=== PATIENT | female | born 1975 | race Caucasian/White ===

== ENCOUNTER 2018-03-15 10:15 | Outpatient (CLI) | payer BC ==
[~2018-03-15] VITALS: Ht 157.5 cm; Wt 119.3 kg
[~2018-03-15 10:15] MED LIST: CHOL100048 PO; HYDR-3583 PO; IBUP-1780 PO; METO-370 PO; MTF500T PO; NORG1TAB7 PO; SPIR25TA3 PO; [UNRECOGNIZED DRUG - OTHER] PO
== END 2018-03-15 12:51 | disposition home or self-care (01) ==
LOC: PREOP 10:15
PROVIDERS: ATTEND Obstetrics & Gynecology
DX: Z01.818 Encounter for other preprocedural examination (principal)

== ENCOUNTER 2018-03-18 05:58 | Day surgery (SDC) | payer BC ==
[~2018-03-18] VITALS: Ht 154.9 cm; Wt 136.1 kg
--- OUTSIDE RECORDS SUMMARY | 2018-03-18 06:01 | XMS REPORT ---
Author Author KENRICKFLAKO EDWARDS [facility] Address Unknown Care Team Providers Care Linux Programmer Name Role Phone FLAKO APPIAH Unavailable PROBLEMS Type Condition ICD9-CM Code WFP49-MK Code Onset Dates Condition Status SNOMED Code Problem Rosacea L71.9 Active 567113082 Problem Grief F43.20 Active 43981036 Problem Abnormality of right breast on screening mammogram R92.8 Active 089198739 Problem Insomnia G47.00 Active 664138299 Problem Prediabetes R73.09 Active 8742362 Problem Essential hypertension I10 Active 94039755 Problem Hyperlipidemia E78.5 Active 03059399 Problem Other elevated white blood cell (WBC) count D72.828 Active 535542624 Problem BMI 50.0-59.9, adult Z68.43 Active 238077802 Problem Vitamin D deficiency E55.9 Active 16510723 Problem Reactive depression F32.9 Active 70737834 Problem Dysmenorrhea N94.6 Active 007272876 Problem Vitamin B12 deficiency E53.8 Active 454330549 ALLERGIES Substance Reaction Event Type Date Status Flexeril Unknown Drug Allergy Jul, Active ENCOUNTERS Encounter Location Date Diagnosis [facility] [id number] [place] [address] 14643- 4615 Oct, Visit for TB skin test Z11.1 [facility] [id number] [place] [id number] Jul, Dental examination Z01.20 and Dental caries K02.9 [facility] [address] [address]- [address] 14 May, 2017 Well woman exam Z01.419 ; Screening for breast cancer Z12.39 and BMI 50.0-59.9, adult Z68.43 [facility] [address] 48752- 9748 Apr, [place] [id number] [place] [address] 04296- 6524 Mar, Other elevated white blood cell (WBC) count D72.828 [place] [id number] [place] [address] 89946- 1484 Mar, Other elevated white blood cell (WBC) count D72.828 [place] [address] 53778- 2315 Mar, Essential hypertension I10 [place] [address] 191797- 2568 Feb, Acute non-recurrent frontal sinusitis J01.10 ; Cough R05 ; Essential hypertension I10 ; Dysmenorrhea N94.6 and BMI 50.0-59.9, adult Z68.43 [place] [address] 45744- 2674 Dec, Pain in right leg M79.604 [place] [id number] [place] [address] 18274- 7757 Oct, [place] [id number] [place] [address] 36058- 6802 Sep, Pain in right leg M79.604 [place] [id number] [place] [address] 82566- 9693 August, Essential hypertension I10 [facility] [id number] [place] [address] 00179 -3616 14 Jul, 2016 Impacted cerumen of right ear H61.21 [facility] [place] [id number] [place] [address] 66447 -3364 Jul, Impacted cerumen of right ear H61.21 [place] [id number] [place] [address] 75701- 3695 Jun, Vitamin B12 deficiency E53.8 ; Vitamin D deficiency E55.9 and Reactive depression F32.9 [place] [id number] [place] [address] 97791- 6819 Apr, [place] [id number] [place] [address] 45996- 7787 Apr, Grief F43.20 [place] [id number] [place] [address] 59160- 9389 13 Mar, 2016 Abnormality of right breast on screening mammogram R92.8 and Screening for breast cancer Z12.39 [place] [address] 17734- 3961 07 Mar, 2016 Well woman exam Z01.419 ; Pelvic pain R10.2 ; Abnormality of right breast on screening mammogram R92.8 and Screening for breast cancer Z12.39 [place] [id number] [place] [address] 06992- 4524 Feb, [place] [address] 70006- 4174 Feb, Vitamin B12 deficiency E53.8 [place] [id number] [place] [address] 98796- 3906 Feb, Vitamin B12 deficiency E53.8 [place] [id number] [place] [address] 07118- 2130 Feb, Essential hypertension I10 and Vitamin B12 deficiency E53.8 [place] [id number] [place] [address] 05490- 8881 Feb, Pain in right leg M79.604 ; Pain of left leg M79.605 ; Prediabetes R73.09 ; Hyperlipidemia E78.5 ; Essential hypertension I10 and Cramp of both lower extremities R25.2 [place] [id number] [place] [address] 44758- 3664 Feb, [place] [id number] [place] [address] 26352- 6305 Sep, Dysuria R30.0 and Acute cystitis with hematuria N30.01 [place] [id number] [place] [address] 29345- 7746 26 Jul, 2015 Essential hypertension I10 and Prediabetes R73.09 [place] [id number] [place] [address] 46416- 5884 12 Apr, 2015 Acute upper respiratory infection, unspecified J06.9 and Other viral agents as the cause of diseases classified elsewhere B97.89 [place] [id number] [place] [address] 01759- 1486 Apr, [place] [id number] [place] [address] 36783- 3583 Mar, Essential hypertension, benign 401.1 and Hyperlipidemia 272.4 [place] [id number] [place] [address] 01471- 9126 Mar, [place] [id number] [place] [address] 28634- 9500 Feb, [place] [id number] [place] [address] 83322- 2836 Feb, [place] [id number] [place] [address] 11231- 2524 Feb, History of abnormal mammogram Z87.898 [place] [id number] [place] [address] 49615- 8425 Feb, Screening breast examination Z12.39 and History of abnormal mammogram Z87.898 [place] [id number] [place] [address] 31751- 4880 Jan, [place] [id number] [place] [address] 41363- 3537 Jan, [place] [id number] [place] [address] 72782- 5634 Jan, Encounter for immunization Z23 [place] [address] 05408- 0406 Jan, [facility] [address] [address]- 0977 Nov, Essential hypertension, benign 401.1 ; Hyperlipidemia 272.4 and Severe menstrual cramps 625.3 [facility] [id number] [address]- 4276 Sep, [facility] [id number] [place] [address] 34031- 6992 Sep, Intractable left heel pain 729.5 [facility] [id number] [place] [address] 23164- 8245 Sep, Unspecified breast screening V76.10 [facility] [id number] [place] [address] 93417- 8596 August, Conjunctivitis, left eye 372.30 [facility] [id number] [place] [address] 10379- 8733 Jul, [facility] [id number] [place] [address] 87920- 2240 Jul, [facility] [id number] [place] [address] 92989- 3436 May, [facility] [id number] [address]- 0906 May, [facility] [id number] [place] [address] 90240- 8306 Apr, [facility] [address] [place] [address] 67305- 4116 Apr, [facility] [id number] [place] [address] 96296- 1496 Apr, [facility] [address] [address]- 4236 Apr, [facility] [address] [place] [address] 12759- 4529 Apr, [facility] [place] [facility] [address] [id number] [place] [address]- 7633 Apr, [facility] [place] [facility] [address] [id number] [place] [address]- 9806 Apr, [facility] [place] [facility] [address] [id number] [place] [address]- 2610 Apr, [facility] [place] [facility] [address] [id number] [place] [address]- 8720 Apr, [facility] [place] [facility] [address] [id number] [place] [address]- 7704 Feb, [facility] [place] [facility] [address] [id number] [place] [address]- 2137 Feb, [facility] [place] [facility] [address] [id number] [place] [address]- 3871 Feb, [facility] [place] [facility] [address] [id number] [place] [address]- 5337 Feb, [facility] [place] [facility] [address] [id number] [place] [address]- 6770 Feb, [facility] [place] [facility] [address] [id number] [place] [address]- 1867 Feb, [facility] [place] [facility] [address] [id number] [place] [address]- 2526 Jan, [facility] [place] [facility] [address] [id number] [address]- 9875 Jan, [facility] [place] [facility] [address] [id number] [place] [address]- 4156 Jan, [facility] [place] [facility] [address] [id number] [place] [address]- 6976 Jan, [facility] [place] [facility] [address] [id number] [place] [address]- 9626 Jan, [facility] [place] [facility] [address] [id number] [place] [address]- 3718 14 Jan, 2014 [facility] [place] [facility] [address] [id number] [place] [address]- 3962 13 Jan, 2014 [facility] [place] [facility] [address] [id number] [place] [address]- 3041 13 Jan, 2014 [facility] [place] [facility] [address] [id number] [place] [address]- 4592 10 Jan, 2014 [facility] [place] [facility] [address] [id number] [place] [address]- 1001 09 Jan, 2014 [facility] [place] [facility] [address] [id number] [place] [address]- 2660 07 Jan, 2014 [facility] [place] [facility] [address] [id number] [place] [address]- 3528 07 Jan, 2014 [facility] [place] [facility] [address] [id number] [place] [address]- 3063 25 Dec, 2013 [facility] [place] [facility] [address] [id number] [place] [address]- 7517 25 Dec, 2013 [facility] [place] [facility] [address] [id number] [place] [address]- 9047 19 Dec, 2013 [facility] [place] [facility] [address] [id number] [place] [address]- 6040 19 Dec, 2013 [facility] [place] [facility] [address] [id number] [place] [address]- 6128 17 Dec, 2013 [facility] [place] [facility] [address] [id number] [place] [address]- 2541 17 Dec, 2013 [facility] [place] [facility] [address] [id number] [place] [address]- 7389 06 Dec, 2013 [facility] [place] [facility] [address] [id number] [place] [address]- 0440 06 Dec, 2013 [facility] [place] [facility] [address] [id number] [place] [address]- 4884 Nov, [facility] [place] [facility] [address] [id number] [place] [address]- 0017 Nov, [facility] [place] [facility] [address] [id number] [place] [address]- 9945 Oct, [facility] [place] [facility] [address] [id number] [place] [address]- 7102 Oct, [facility] [place] [facility] [address] [id number] [place] [address]- 8073 Jul, [facility] [place] [facility] [address] [id number] [place] [address]- 2782 Jul, [facility] [place] [facility] [address] [id number] [place] [address]- 9778 Jun, [facility] [place] [facility] [address] [id number] [place] [address]- 3266 Jun, [facility] [place] [facility] [address] [id number] [place] [address]- 5545 Jun, [facility] [place] [facility] [address] [id number] [place] [address]- 0389 Jun, [facility] [place] [facility] [address] [id number] [place] [address]- 0779 May, [facility] [place] [facility] [address] [id number] [place] [address]- 6046 May, [facility] [place] [facility] [address] [id number] [place] [address]- 7222 May, [facility] [place] [facility] [address] [id number] [place] 6304 May, [facility] [place] [facility] [address] [id number] [place] 5847 Apr, [facility] [place] [facility] [address] [id number] [place] 1695 Apr, [facility] [place] [facility] [address] [id number] [address]- 2586 Apr, [facility] [address] [id number] [place] [address]- 3091 Apr, [facility] [place] [facility] [address] [id number] [place] [address]- 2494 Nov, [facility] [place] [facility] [address] [facility] [id number] [place] [address]- 4381 Oct, [facility] [place] [facility] [address] [id number] [place] [address]- 5519 Sep, [facility] [place] [facility] [address] [id number] [place] [address]- 6283 August, [facility] [place] [facility] [address] [id number] [place] [address]- 3122 Jul, [facility] [place] [facility] [address] [place] [address]- 9133 Jun, [facility] [place] [facility] [address] [id number] [place] [address]- 9254 Jun, [facility] [place] [facility] [address] [facility] [id number] [place] [address]- 0417 May, [facility] [place] [facility] [address] [facility] [id number] [place] [address]- 3949 Mar, [facility] [place] [facility] [address] [id number] [place] [address]- 5453 Feb, [facility] [place] [facility] [address] [id number] [place] [address]- 3872 Feb, [facility] [place] [facility] [address] [id number] [place] [address]- 0993 Jan, [facility] [place] [facility] [address] [facility] [id number] [place] [address]- 1595 Jan, [facility] [place] [facility] [address] [facility] [id number] [place] [address]- 4677 15 Dec, 2011 [facility] [place] [facility] [address] [id number] [place] [address]- 2546 Nov, [facility] [address] [id number] [place] [address] 2546 Oct, [facility] [place] [facility] [address] [id number] [place] [address]- 2546 August, [facility] [place] [facility] [address] [id number] [place] [address]- 2546 August, [facility] [place] [facility] [address] [id number] [place] [address]- 2546 August, [facility] [place] [facility] [address] [id number] [place] [address]- 2546 May, [facility] [place] [facility] [address] [id number] [place] [address]- 2546 Apr, [facility] [place] [facility] [address] [id number] [place] [address]- 2546 Nov, [facility] [address] [id number] [place] [address]- 9472 August, [facility] [place] [facility] [address] [id number] [place] [address]- 1856 August, [facility] [place] [facility] [address] [id number] [place] [address]- 2546 Dec, [facility] [place] [facility] [address] [id number] [place] [address]- 2546 August, [facility] [place] [facility] [address] [id number] [place] [address]- 2546 Mar, [facility] [place] [facility] [address] [id number] [place] [address]- 2546 Feb, [facility] [place] [facility] [address] [id number] [place] [address]- 2546 Jan, [facility] [place] [facility] [address] [id number] [place] [address]- 5208 Sep, IMMUNIZATIONS No Known Immunizations SOCIAL HISTORY Never Assessed REASON FOR VISIT CLARENCE PLAN OF CARE Activity Details Follow Up prn Reason:SHAHNAZ with HYG VITAL SIGNS Blood pressure systolic 132 mmHg 2017-07-21 Blood pressure diastolic 82 mmHg 2017-07-21 MEDICATIONS Medication Instructions Dosage Frequency Start Date End Date Duration Status Vitamin D 1000 UNIT Orally Once a day 1 tablet 24h Active Ibuprofen 800 MG TAKE ONE TABLET BY MOUTH THREE TIMES DAILY NEEDED 30 Active Metoprolol Tartrate Active Lopressor 50 mg Orally Twice a day 1 tablet with food 12h 90 days Not-Taking Ortho-Cyclen (28) 0.25-35 MG-MCG Orally Once a day 1 tablet 24h 28 Active RESULTS No Results PROCEDURES Procedure Date Ordered Result Body Site LTD ORAL EVALUATION - PROBLEM FOCUS July 21, 2017 INTRAORL-PERIAPICAL 1 FILM [id number] July 21, 2017 EXTRAC ERUPTED TOOTH/EXPOSED ROOT July 21, 2017 BITEWING - SINGLE FILM July 21, 2017 INSTRUCTIONS MEDICATIONS ADMINISTERED No Known Medications MEDICAL (GENERAL) HISTORY Type Description Date Medical History Essential hypertension, benign Medical History Post cholecystectomy Medical History Obesity Surgical History section x 2 Surgical History breast biopsy Surgical History cholecystectomy Hospitalization History Section x 2
--- OUTSIDE RECORDS SUMMARY | 2018-03-18 06:01 | XMS REPORT ---
Author Author LUIS CARLOS MCCARTNEY [facility] Address [address] [place] [address] Care Team Providers Care Corporate Legal Secretary Name Role Phone LUIS CARLOS MCCARTNEY Unavailable PROBLEMS Type Condition ICD9-CM Code KCP97-JT Code Onset Dates Condition Status SNOMED Code Problem Rosacea L71.9 Active 357171884 Problem Grief F43.20 Active 62513272 Problem Abnormality of right breast on screening mammogram R92.8 Active 606342578 Problem Insomnia G47.00 Active 615229006 Problem Prediabetes R73.09 Active 1459118 Problem Essential hypertension I10 Active 19610937 Problem Hyperlipidemia E78.5 Active 23811293 Problem Other elevated white blood cell (WBC) count D72.828 Active 634096922 Problem BMI 50.0-59.9, adult Z68.43 Active 868468634 Problem Vitamin D deficiency E55.9 Active 46439555 Problem Reactive depression F32.9 Active 19333604 Problem Dysmenorrhea N94.6 Active 461444605 Problem Vitamin B12 deficiency E53.8 Active 545685840 ALLERGIES No Information ENCOUNTERS Encounter Location Date Diagnosis [facility] [id number] [place] [address] 25404- 7767 Jan, [facility] [id number] [place] [address] 85101- 0430 Oct, Visit for TB skin test Z11.1 [facility] [id number] [place] [address] [id number] Jul, Dental examination Z01.20 and Dental caries K02.9 [facility] [id number] [place] [address] 13030- 1411 14 May, 2017 Well woman exam Z01.419 ; Screening for breast cancer Z12.39 and BMI 50.0-59.9, adult Z68.43 [facility] [id number] [place] [address] 52024- 4648 Apr, [facility] [id number] [place] [address] 33609- 5541 Mar, Other elevated white blood cell (WBC) count D72.828 [facility] [address] 0[address]99- 1676 Mar, Other elevated white blood cell (WBC) count D72.828 [facility] [id number] [place] [address] 38983- 3608 Mar, Essential hypertension I10 [facility] [address] 28608- 2009 Feb, Acute non-recurrent frontal sinusitis J01.10 ; Cough R05 ; Essential hypertension I10 ; Dysmenorrhea N94.6 and BMI 50.0-59.9, adult Z68.43 [facility] [id number] [place] [address] 51882- 2636 Dec, Pain in right leg M79.604 [facility] [id number] [place] [address] 26874- 9211 Oct, [facility] [id number] [place] [address] 14752- 3089 Sep, Pain in right leg M79.604 [facility] [id number] [place] [address] 79470- 2207 August, Essential hypertension I10 [facility] [id number] [place] [address] 01746 -1530 14 Jul, 2016 Impacted cerumen of right ear H61.21 [facility] [id number] [place] [address] 13722 -8218 11 Jul, 2016 Impacted cerumen of right ear H61.21 [facility] [address] 78508- 3674 Jun, Vitamin B12 deficiency E53.8 ; Vitamin D deficiency E55.9 and Reactive depression F32.9 [facility] [id number] [place] [address] 58993- 0255 Apr, [facility] [id number] [place] [address] 28552- 8595 Apr, Grief F43.20 [facility] [id number] [place] [address] 32446- 7042 13 Mar, 2016 Abnormality of right breast on screening mammogram R92.8 and Screening for breast cancer Z12.39 [facility] [id number] [place] [address] 46522- 8199 07 Mar, 2016 Well woman exam Z01.419 ; Pelvic pain R10.2 ; Abnormality of right breast on screening mammogram R92.8 and Screening for breast cancer Z12.39 [facility] [id number] [place] [address] 12596- 2789 Feb, [facility] [id number] [place] [address] 49220- 7780 Feb, Vitamin B12 deficiency E53.8 [facility] [id number] [place] [address] 54556- 3010 Feb, Vitamin B12 deficiency E53.8 [facility] [id number] [place] [address] 51192- 7627 Feb, Essential hypertension I10 and Vitamin B12 deficiency E53.8 [facility] [address] [place] [address] 33893- 2042 Feb, Pain in right leg M79.604 ; Pain of left leg M79.605 ; Prediabetes R73.09 ; Hyperlipidemia E78.5 ; Essential hypertension I10 and Cramp of both lower extremities R25.2 [facility] [id number] [place] [address] 24199- 8678 Feb, [facility] [id number] [place] [address] 22978- 4297 Sep, Dysuria R30.0 and Acute cystitis with hematuria N30.01 [facility] [id number] [place] [address] 03933- 4765 Jul, Essential hypertension I10 and Prediabetes R73.09 [facility] [id number] [place] [address] 69797- 7075 Apr, Acute upper respiratory infection, unspecified J06.9 and Other viral agents as the cause of diseases classified elsewhere B97.89 [facility] [id number] [place] [address] 15594- 0866 Apr, [facility] [id number] [place] [address] 57282- 1610 Mar, Essential hypertension, benign 401.1 and Hyperlipidemia 272.4 [facility] [id number] [place] [address] 79148- 7999 Mar, [facility] [id number] [place] [address] 11074- 6737 Feb, [facility] [id number] [place] [address] 43771- 9906 Feb, [facility] [id number] [place] [address] 32246- 2980 Feb, History of abnormal mammogram Z87.898 [facility] [id number] [place] [address] 96148- 4727 Feb, Screening breast examination Z12.39 and History of abnormal mammogram Z87.898 [facility] [id number] [place] [address] 26229- 2768 Jan, [facility] [id number] [place] [address] 78510- 3220 Jan, [facility] [id number] [place] [address] 21520- 2234 Jan, Encounter for immunization Z23 [facility] [id number] [place] [address] 93252- 5617 Jan, [facility] [id number] [place] [address] 69461- 8696 Nov, Essential hypertension, benign 401.1 ; Hyperlipidemia 272.4 and Severe menstrual cramps 625.3 [facility] [address] 01534- 0456 Sep, [facility] [id number] [place] [address] 52662- 3506 Sep, Intractable left heel pain 729.5 [facility] [id number] [place] [address] 88599- 9602 Sep, Unspecified breast screening V76.10 [facility] [address] 45287- 1392 August, Conjunctivitis, left eye 372.30 [facility] [id number] [place] [address] 79159- 1716 Jul, [facility] [id number] [place] [address] 72397- 9820 Jul, [facility] [id number] [place] [address] 97922- 2040 May, [facility] [id number] [place] [address] 76072- 0301 May, [facility] [id number] [place] [address] 88066- 7856 Apr, [facility] [id number] [place] [address] 41460- 9698 Apr, [facility] [id number] [place] [address] 86651- 0616 Apr, [facility] [id number] [place] [address] 79098- 9246 Apr, [facility] [place] [facility] [address] [id number] [place] [address]- 6791 Apr, [facility] [place] [facility] [address] [id number] [place] [address]- 9429 Apr, [facility] [place] [facility] [address] [id number] [place] [address]- 4713 Apr, [facility] [place] [facility] [address] [id number] [place] [address]- 4284 Apr, [facility] [place] [facility] [address] [id number] [place] [address]- 0902 Apr, [facility] [place] [facility] [address] [id number] [place] [address]- 7683 Feb, [facility] [place] [facility] [address] [id number] [place] [address]- 4768 Feb, [facility] [place] [facility] [address] [id number] [place] [address]- 5683 Feb, [facility] [place] [facility] [address] [id number] [place] [address]- 3853 Feb, [facility] [place] [facility] [address] [id number], [place] [address]- 1296 Feb, [facility] [place] [facility] [address] [id number] [place] [address]- 1310 Feb, [facility] [place] [facility] [address] [id number], [place] [address]- 7845 Jan, [facility] [place] [facility] [address] [id number] [place] [address]- 2156 Jan, [facility] [place] [facility] [address] [id number] [place] [address]- 5679 Jan, [facility] [place] [facility] [address] [id number] [place] [address]- 9810 Jan, [facility] [place] [facility] [address] [id number] [place] [address]- 4698 14 Jan, 2013 [facility] [place] [facility] [address] [id number] [place] [address]- 0343 14 Jan, 2014 [facility] [place] [facility] [address] [id number] [place] [address]- 6771 13 Jan, 2014 [facility] [place] [facility] [address] [id number] [place] [address]- 7297 13 Jan, 2013 [facility] [place] [facility] [address] [id number] [place] [address]- 6014 10 Jan, 2013 [facility] [place] [facility] [address] [id number] [place] [address]- 1585 09 Jan, 2014 [facility] [place] [facility] [address] [id number] [place] [address]- 5758 07 Jan, 2014 [facility] [place] [facility] [address] [id number] [place] [address]- 0389 07 Jan, 2013 [facility] [place] [facility] [address] [id number] [place] [address]- 8348 25 Sep, 2013 [facility] [place] [facility] [address] [id number] [place] [address]- 6647 25 Sep, 2013 [facility] [place] [facility] [address] [facility] [id number] [place] [address]- 5664 19 Sep, 2013 [facility] [place] [facility] [address] [id number] [place] [address]- 2356 19 Sep, 2013 [facility] [place] [facility] [address] [id number], [place] [address]- 2542 17 Sep, 2013 [facility] [place] [facility] [address] [id number] [place] [address]- 9309 17 Sep, 2013 [facility] [place] [facility] [address] [id number] [place] [address]- 2269 06 Sep, 2013 [facility] [place] [facility] [address] [id number] [place] [address]- 2004 06 Sep, 2013 [facility] [place] [facility] [address] [id number] [place] [address]- 5062 Nov, [facility] [place] [facility] [address] [id number] [place] [address]- 8130 Nov, [facility] [place] [facility] [address] [id number] [place] [address]- 5643 Oct, [facility] [place] [facility] [address] [id number] [place] [address]- 7112 Oct, [facility] [place] [facility] [address] [id number] [place] [address]- 6573 Jul, [facility] [place] [facility] [address] [id number] [place] [address]- 8122 Jul, [facility] [place] [facility] [address] [id number] [place] [address]- 4467 Jun, [facility] [place] [facility] [address] [id number] [place] [address]- 2085 Jun, [facility] [place] [facility] [address] [id number] [place] [address]- 8175 Jun, [facility] [place] [facility] [address] [id number] [place] [address]- 5390 Jun, [facility] [place] [facility] [address] [id number] [place] [address]- 4622 May, [facility] [place] [facility] [address] [id number] [place] [address]- 8877 May, [facility] [place] [facility] [address] [id number] [place] [address]- 1320 May, [facility] [place] [facility] [address] [id number] [place] [address]- 6803 May, [facility] [place] [facility] [address] [id number] [place] 1292 Apr, [facility] [place] [facility] [address] [id number], [place] [address]- 4532 Apr, [facility] [address] [id number] [place] [address]- 5629 Apr, [facility] [place] [facility] [address] [id number] [place] [address]- 9594 Apr, [facility] [place] [facility] [address] [facility] [id number] [place] [address]- 7229 Nov, [facility] [place] [facility] [address] [id number] [place] [address]- 5081 Oct, [facility] [place] [facility] [address] [id number] [place] [address]- 0399 Sep, [facility] [place] [facility] [address] [id number] [place] [address]- 4583 August, [facility] [place] [facility] [address] [facility] [id number] [place] [address]- 2451 Jul, [facility] [place] [facility] [address] [id number] [place] [address]- 0147 Jun, [facility] [place] [facility] [address] [facility] [id number] [place] [address]- 8426 Jun, [facility] [place] [facility] [address] [facility] [id number] [place] [address]- 0840 May, [facility] [place] [facility] [address] [facility] [id number] [place] [address]- 9859 Mar, [facility] [place] [facility] [address] [id number] [place] [address]- 6374 Feb, [facility] [place] [facility] [address] [id number] [place] 2855 Feb, [facility] [place] [facility] [address] [facility] [id number] [place] 5403 Jan, [facility] [place] [facility] [address] [facility] [id number] [place] 5010 Jan, [facility] [place] [facility] [address] [id number] [place] [address]- 2546 Dec, [facility] [address] [id number] [place] [address] 2546 Nov, [facility] [place] [facility] [address] [id number] [place] [address]- 2546 Oct, [facility] [place] [facility] [address] [id number] [place] [address] 2546 August, [facility] [place] [facility] [address] [id number] [place] [address]- 2546 August, [facility] [place] [facility] [address] [id number] [place] [address]- 2546 August, [facility] [place] [facility] [address] [id number] [place] [address]- 2546 May, [facility] [place] [facility] [address] [id number] [place] [address]- 2316 Apr, [facility] [address] [id number] [place] [address]- 6824 Nov, [facility] [address] [id number] [place] [address]- 2566 August, [facility] [place] [facility] [address] [id number] [place] [address]- 2546 August, [facility] [place] [facility] [address] [id number] [place] [address]- 2546 Dec, [facility] [place] [facility] [address] [id number] [place] [address]- 2546 August, [facility] [place] [facility] [address] [id number] [place] [address]- 2546 Mar, [facility] [place] [facility] [address] [id number] [place] [address]- 2546 Feb, [facility] [place] [facility] [address] [id number] [place] [address]- 1694 Jan, [facility] [address] [facility] [id number] [place] [address]- 7851 Sep, IMMUNIZATIONS No Known Immunizations SOCIAL HISTORY Never Assessed REASON FOR VISIT TB skin test PLAN OF CARE Activity Details Follow Up 48-72 hours Reason: VITAL SIGNS MEDICATIONS Unknown Medications RESULTS No Results PROCEDURES Procedure Date Ordered Result Body Site TB INTRADERMAL 2017-10-12 N/A TB INTRADERMAL TEST October 12, 2017 INSTRUCTIONS MEDICATIONS ADMINISTERED No Known Medications MEDICAL (GENERAL) HISTORY Type Description Date Medical History Essential hypertension, benign Medical History Post cholecystectomy Medical History Obesity Surgical History section x 2 Surgical History breast biopsy Surgical History cholecystectomy Hospitalization History Section x 2
--- OUTSIDE RECORDS SUMMARY | 2018-03-18 06:01 | XMS REPORT ---
Author Author BIB LUIS CARLOS [facility] Address [address] [place] [address] Care Team Providers Care Acid Blower Name Role Phone LUIS CARLOS MCCARTNEY Unavailable PROBLEMS Type Condition ICD9-CM Code JDD06-SN Code Onset Dates Condition Status SNOMED Code Problem Abnormality of right breast on screening mammogram R92.8 Active 860781353 Problem Vitamin D deficiency E55.9 Active 49611674 Problem Grief F43.20 Active 58908125 Problem Menorrhagia with irregular cycle N92.1 Active 885312623 Problem Other elevated white blood cell (WBC) count D72.828 Active 757555298 Problem Reactive depression F32.9 Active 03066162 Problem Vitamin B12 deficiency E53.8 Active 318444534 Problem BMI 50.0-59.9, adult Z68.43 Active 146706945 Problem Dysmenorrhea N94.6 Active 191263250 Problem Prediabetes R73.09 Active 6030805 Problem Essential hypertension I10 Active 59661129 Problem Hyperlipidemia E78.5 Active 83232788 Problem Insomnia G47.00 Active 505548403 Problem Rosacea L71.9 Active [id number] ALLERGIES No Information ENCOUNTERS Encounter Location Date Diagnosis [facility] [place] [facility] [id number] [place] [address] 63636- 7734 05 Jan, 2018 Menorrhagia with irregular cycle N92.1 ; Essential hypertension I10 ; Hyperlipidemia E78.5 ; Prediabetes R73.09 and BMI 50.0-59.9, adult Z68.43 [facility] [place] [facility] [address] [place] [address] 26456- 5637 Dec, [facility] [place] [facility] [address] [place] [address] 71669- 6752 Oct, Visit for TB skin test Z11.1 [facility] [id number] [id number] 17 Jul, 2017 Dental examination Z01.20 and Dental caries K02.9 [place] [id number] [place] [address] 38352- 2594 14 May, 2017 Well woman exam Z01.419 ; Screening for breast cancer Z12.39 and BMI 50.0-59.9, adult Z68.43 [place] [id number] [place] [address] 27243- 9318 Apr, [place] [id number] [place] [address] 894882- 8459 Mar, Other elevated white blood cell (WBC) count D72.828 [place] [id number] [place] [address] 23414- 3464 Mar, Other elevated white blood cell (WBC) count D72.828 [place] [id number] [place] [address] 02088- 0424 Mar, Essential hypertension I10 [place] [id number] [place] [address] 74814- 8854 Feb, Acute non-recurrent frontal sinusitis J01.10 ; Cough R05 ; Essential hypertension I10 ; Dysmenorrhea N94.6 and BMI 50.0-59.9, adult Z68.43 [place] [id number] [place] [address] 20459- 6833 Dec, Pain in right leg M79.604 [place] [id number] [place] [address] 72564- 5988 Oct, [place] [id number] [place] [address] 11158- 6351 Sep, Pain in right leg M79.604 [place] [id number] [place] [address] 554210- 1095 August, Essential hypertension I10 [facility] [id number] [place] [address] 55783 -0800 14 Jul, 2016 Impacted cerumen of right ear H61.21 [facility] [id number] [place] [address] 17228 -3341 11 Jul, 2016 Impacted cerumen of right ear H61.21 [facility] [place] [facility] [id number] [place] [address] 69322- 8871 Jun, Vitamin B12 deficiency E53.8 ; Vitamin D deficiency E55.9 and Reactive depression F32.9 [place] [id number] [place] [address] 22712- 0868 Apr, [place] [id number] [place] [address] 01312- 2024 Apr, Grief F43.20 [place] [id number] [place] [address] 22614- 1333 13 Mar, 2016 Abnormality of right breast on screening mammogram R92.8 and Screening for breast cancer Z12.39 [place] [id number] [place] [address] 32412- 3624 07 Mar, 2016 Well woman exam Z01.419 ; Pelvic pain R10.2 ; Abnormality of right breast on screening mammogram R92.8 and Screening for breast cancer Z12.39 [place] [id number] [place] [address] 19899- 6133 Feb, [place] [id number] [place] [address] 74397- 8242 Feb, Vitamin B12 deficiency E53.8 [place] [id number] [place] [address] 55848- 9415 Feb, Vitamin B12 deficiency E53.8 [place] [id number] [place] [address] 37787- 5859 Feb, Essential hypertension I10 and Vitamin B12 deficiency E53.8 [place] [id number] [place] [address] 26734- 3146 16 Feb, 2016 Pain in right leg M79.604 ; Pain of left leg M79.605 ; Prediabetes R73.09 ; Hyperlipidemia E78.5 ; Essential hypertension I10 and Cramp of both lower extremities R25.2 [place] [id number] [place] [address] 20781- 0811 08 Feb, 2016 [place] [id number] [place] [address] 98738- 3633 Sep, Dysuria R30.0 and Acute cystitis with hematuria N30.01 [place] [id number] [place] [address] 56005- 2807 Jul, Essential hypertension I10 and Prediabetes R73.09 [place] [id number] [place] [address] 02909- 7699 Apr, Acute upper respiratory infection, unspecified J06.9 and Other viral agents as the cause of diseases classified elsewhere B97.89 [place] [id number] [place] [address] 27082- 2255 Apr, [place] [id number] [place] [address] 18130- 0039 Mar, Essential hypertension, benign 401.1 and Hyperlipidemia 272.4 [place] [id number] [place] [address] 59303- 8187 Mar, [place] [id number] [place] [address] 84045- 5723 Feb, [place] [id number] [place] [address] 77476- 3794 Feb, [place] [id number] [place] [address] 40106- 0145 Feb, History of abnormal mammogram Z87.898 [place] [id number] [place] [address] 01788- 9393 04 Feb, 2015 Screening breast examination Z12.39 and History of abnormal mammogram Z87.898 [facility] [place] [facility] [id number] [place] [address] 53890- 4098 Jan, [facility] [place] [facility] [id number] [place] [address] 95627- 5738 Jan, [facility] [place] [facility] [id number] [place] [address] 92663- 4513 Jan, Encounter for immunization Z23 [facility] [place] [facility] [address] 33512- 6385 Jan, [facility] [place] [facility] [id number] [place] [address] 36813- 9016 Nov, Essential hypertension, benign 401.1 ; Hyperlipidemia 272.4 and Severe menstrual cramps 625.3 [place] [id number] [place] [address] 31652- 0963 Sep, [facility] [place] [facility] [address] 37518- 2845 Sep, Intractable left heel pain 729.5 [facility] [place] [facility] [id number] [place] [address] 65800- 1170 Sep, Unspecified breast screening V76.10 [facility] [place] [facility] [id number] [place] [address] 02036- 4167 August, Conjunctivitis, left eye 372.30 [facility] [place] [facility] [id number] [place] [address] 83503- 9434 Jul, [facility] [place] [facility] [id number] [place] [address] 01309- 2120 Jul, [facility] [place] [facility] [id number] [place] [address] 20678- 7373 May, [facility] [place] [facility] [id number] [place] [address] 69451- 8251 May, [facility] [place] [facility] [id number] [place] [address] 65337- 9492 Apr, [facility] [place] [facility] [address] [id number] [place] [address]- 2889 Apr, [facility] [place] [facility] [address] [id number] [place] [address]- 7418 Apr, [facility] [place] [facility] [address] [id number] [place] [address]- 1067 Apr, [facility] [place] [facility] [address] [id number] [place] [address]- 8376 Apr, [facility] [place] [facility] [address] [id number] [place] [address]- 2007 Apr, [facility] [place] [facility] [address] [id number] [place] [address]- 8630 Apr, [facility] [place] [facility] [address] [id number] [place] [address]- 8279 Apr, [facility] [place] [facility] [address] [id number] [place] [address]- 1119 Apr, [facility] [place] [facility] [address] [id number] [place] [address]- 1617 Feb, [facility] [place] [facility] [address] [id number] [place] [address]- 5720 Feb, [facility] [place] [facility] [address] [id number] [place] [address]- 7060 Feb, [facility] [place] [facility] [address] [id number], [place] [address]- 9457 Feb, [facility] [place] [facility] [address] [id number] [place] [address]- 9100 Feb, [facility] [place] [facility] [address] [id number] [place] [address]- 1871 Feb, [facility] [place] [facility] [address] [id number] [place] [address]- 5061 Jan, [facility] [place] [facility] [address] [id number], [place] [address]- 0442 Jan, [facility] [place] [facility] [address] [id number] [place] [address]- 6080 Jan, [facility] [place] [facility] [address] [id number] [place] [address]- 5660 Jan, [facility] [place] [facility] [address] [id number] [place] [address]- 5442 14 Jan, 2014 [facility] [place] [facility] [address] [id number] [place] [address]- 8138 14 Jan, 2014 [facility] [place] [facility] [address] [id number] [place] [address]- 5655 Jan, [facility] [place] [facility] [address] [id number] [place] [address]- 1235 13 Jan, 2014 [facility] [place] [facility] [address] [id number] [place] [address]- 8534 10 Jan, 2014 [facility] [place] [facility] [address] [id number] [place] [address]- 1924 09 Jan, 2014 [facility] [place] [facility] [address] [id number] [place] [address]- 1430 07 Jan, 2014 [facility] [place] [facility] [address] [id number] [place] [address]- 7013 07 Jan, 2014 [facility] [place] [facility] [address] [id number], [place] [address]- 5523 25 Dec, 2013 [facility] [place] [facility] [address] [id number], [place] [address]- 3934 25 Dec, 2013 [facility] [place] [facility] [address] [id number] [place] [address]- 2149 19 Dec, 2013 [facility] [place] [facility] [address] [id number] [place] [address]- 9761 19 Dec, 2013 [facility] [place] [facility] [address] [id number] [place] [address]- 0021 17 Sep, 2013 [facility] [place] [facility] [address] [id number] [place] [address]- 9014 17 Dec, 2013 [facility] [place] [facility] [address] [id number] [place] [address]- 1164 Dec, [facility] [place] [facility] [address] [id number] [place] [address]- 4916 Dec, [facility] [place] [facility] [address] [id number] [place] [address]- 8385 Nov, [facility] [place] [facility] [address] [id number] [place] [address]- 9659 Nov, [facility] [place] [facility] [address] [id number] [place] [address]- 2435 Oct, [facility] [place] [facility] [address] [id number] [place] [address]- 6612 Oct, [facility] [place] [facility] [address] [id number] [place] [address]- 0959 Jul, [facility] [place] [facility] [address] [id number] [place] [address]- 8459 Jul, [facility] [place] [facility] [address] [id number] [place] [address]- 9486 Jun, [facility] [place] [facility] [address] [id number] [place] [address]- 0377 Jun, [facility] [place] [facility] [address] [id number] [place] [address]- 2833 Jun, [facility] [place] [facility] [address] [id number] [place] [address]- 7632 Jun, [facility] [place] [facility] [address] [id number] [place] [address]- 8667 May, [facility] [place] [facility] [address] [id number] [place] [address]- 5226 May, [facility] [place] [facility] [address] [id number] [place] [address]- 8091 May, [facility] [place] [facility] [address] [id number] [place] [address]- 9628 May, [facility] [place] [facility] [address] [id number] [place] [address]- 7583 Apr, [facility] [place] [facility] [address] [facility] [id number] [place] [address]- 9421 Apr, [facility] [place] [facility] [address] [id number] [place] [address]- 0668 Apr, [facility] [place] [facility] [address] [id number] [place] [address]- 5118 Apr, [facility] [place] [facility] [address] [facility] [id number] [place] [address]- 4989 Nov, [facility] [place] [facility] [address] [id number] [place] [address]- 8870 Oct, [facility] [place] [facility] [address] [id number] [place] [address]- 3534 Sep, [facility] [place] [facility] [address] [id number] [place] [address]- 6680 August, [facility] [place] [facility] [address] [facility] [id number] [place] [address]- 0014 Jul, [facility] [place] [facility] [address] [id number] [place] [address]- 8931 Jun, [facility] [place] [facility] [address] [id number] [place] [address]- 7029 Jun, [facility] [place] [facility] [address] [id number] [place] [address]- 0378 May, [facility] [place] [facility] [address] [id number] [place] [address]- 8516 Mar, [facility] [place] [facility] [address] [id number] [place] [address]- 3141 Feb, [facility] [place] [facility] [address] [id number] [place] [address] 2549 Feb, [facility] [address] [id number] [place] [address]- 2143 Jan, [facility] [address] [id number] [place] [address] 2546 Jan, [facility] [address] [id number] [place] [address]- 6886 Dec, [facility] [address] [id number] [place] [address] 2546 Nov, [facility] [address] [id number] [place] [address]- 1956 Oct, [facility] [address] [id number] [place] [address]- 2056 August, [facility] [address] [id number] [place] [address]- 6538 August, [facility] [address] [id number] [place] [address]- 7797 August, [facility] [address] [id number] [place] [address]- 9358 May, [facility] [address] [id number] [place] [address]- 2006 Apr, [facility] [address] [id number] [place] [address] 2547 Nov, [facility] [address] [id number] [place] [address] 2546 August, [facility] [address] [id number] [place] [address] 2546 August, [facility] [address] [id number] [place] [address]- 2546 Dec, [facility] [address] [id number] [place] [address]- 8476 August, [facility] [place] [facility] [address] [facility] [id number], [place] [address]- 5816 Mar, [facility] [place] [facility] [address] [id number], [place] [address]- 2546 Feb, [facility] [place] [facility] [address] [facility] [id number], [place] [address]- 2546 Jan, [facility] [place] [facility] [address] [id number], [place] [address]- 4826 Sep, IMMUNIZATIONS No Known Immunizations SOCIAL HISTORY Never Assessed REASON FOR VISIT Requests return call PLAN OF CARE VITAL SIGNS MEDICATIONS No Known Medications RESULTS No Results PROCEDURES No Known procedures INSTRUCTIONS MEDICATIONS ADMINISTERED No Known Medications MEDICAL (GENERAL) HISTORY Type Description Date Medical History Essential hypertension, benign Medical History Post cholecystectomy Medical History Obesity Surgical History section x 2 Surgical History breast biopsy Surgical History cholecystectomy Hospitalization History Section x 2
--- OUTSIDE RECORDS SUMMARY | 2018-03-18 06:02 | XMS REPORT ---
Author Author BIB LUIS CARLOS [facility] Address [address] [place] [address] Care Team Providers Care Specialty Development Consultant Name Role Phone LUIS CARLOS MCCARTNEY Unavailable PROBLEMS Type Condition ICD9-CM Code YMI23-YW Code Onset Dates Condition Status SNOMED Code Problem Rosacea L71.9 Active 009556243 Problem Grief F43.20 Active 46546880 Problem Abnormality of right breast on screening mammogram R92.8 Active 446451263 Problem Insomnia G47.00 Active 219850630 Problem Prediabetes R73.09 Active 9052122 Problem Essential hypertension I10 Active 36445216 Problem Hyperlipidemia E78.5 Active 23585666 Problem Other elevated white blood cell (WBC) count D72.828 Active 945118337 Problem BMI 50.0-59.9, adult Z68.43 Active 221502741 Problem Vitamin D deficiency E55.9 Active 10542628 Problem Reactive depression F32.9 Active 03582277 Problem Dysmenorrhea N94.6 Active 270637394 Problem Vitamin B12 deficiency E53.8 Active 472921785 ALLERGIES No Information ENCOUNTERS Encounter Location Date Diagnosis [facility] [address] [facility] [id number] [place] [address] [id number] 17 Jul, 2017 Dental examination Z01.20 and Dental caries K02.9 [facility] [id number] [place] [address] 46913- 1852 14 May, 2017 Well woman exam Z01.419 ; Screening for breast cancer Z12.39 and BMI 50.0-59.9, adult Z68.43 [facility] [id number] [place] [address] 04338- 3965 Apr, [facility] [id number] [place] [address] 28031- 9210 Mar, Other elevated white blood cell (WBC) count D72.828 [place] [id number] [place] [address] 83924- 6138 Mar, Other elevated white blood cell (WBC) count D72.828 [place] [id number] [place] [address] 88657- 3995 Mar, Essential hypertension I10 [place] [address] 42095- 7067 Feb, Acute non-recurrent frontal sinusitis J01.10 ; Cough R05 ; Essential hypertension I10 ; Dysmenorrhea N94.6 and BMI 50.0-59.9, adult Z68.43 [place] [address] 97091- 1399 Dec, Pain in right leg M79.604 [place] [address] 10436- 9475 Oct, [place] [address] 00834- 2661 Sep, Pain in right leg M79.604 [place] [id number] [place] [address] 46217- 6389 August, Essential hypertension I10 [facility] [place] [id number] [place] [address] 82965 -3604 Jul, Impacted cerumen of right ear H61.21 [facility] [place] [id number] [place] [address] 67609 -0130 Jul, Impacted cerumen of right ear H61.21 [place] [id number] [place] [address] 74699- 4380 Jun, Vitamin B12 deficiency E53.8 ; Vitamin D deficiency E55.9 and Reactive depression F32.9 [place] [id number] [place] [address] 79974- 2889 Apr, [place] [id number] [place] [address] 56823- 2600 Apr, Grief F43.20 [place] [id number] [place] [address] 33775- 9072 13 Mar, 2016 Abnormality of right breast on screening mammogram R92.8 and Screening for breast cancer Z12.39 [place] [address] 88459- 5012 07 Mar, 2016 Well woman exam Z01.419 ; Pelvic pain R10.2 ; Abnormality of right breast on screening mammogram R92.8 and Screening for breast cancer Z12.39 [place] [id number] [place] [address] 25607- 3865 Feb, [place] [id number] [place] [address] 80346- 3622 Feb, Vitamin B12 deficiency E53.8 [place] [id number] [place] [address] 22604- 7351 Feb, Vitamin B12 deficiency E53.8 [place] [id number] [place] [address] 79755- 7579 Feb, Essential hypertension I10 and Vitamin B12 deficiency E53.8 [place] [id number] [place] [address] 13396- 0144 16 Feb, 2016 Pain in right leg M79.604 ; Pain of left leg M79.605 ; Prediabetes R73.09 ; Hyperlipidemia E78.5 ; Essential hypertension I10 and Cramp of both lower extremities R25.2 [place] [id number] [place] [address] 36832- 2977 Feb, [place] [address] 17173- 3596 Sep, Dysuria R30.0 and Acute cystitis with hematuria N30.01 [place] [id number] [place] [address] 31209- 7467 Jul, Essential hypertension I10 and Prediabetes R73.09 [place] [id number] [place] [address] 94623- 1734 Apr, Acute upper respiratory infection, unspecified J06.9 and Other viral agents as the cause of diseases classified elsewhere B97.89 [place] [id number] [place] [address] 18002- 9616 Apr, [place] [address] 038988- 8691 Mar, Essential hypertension, benign 401.1 and Hyperlipidemia 272.[address] 48568- 8095 Mar, [place] [id number] [place] [address] 65184- 9196 Feb, [address] 59721- 2237 Feb, [place] [id number] [place] [address] 43877- 0131 Feb, History of abnormal mammogram Z87.898 [place] [id number] [place] [address] 14671- 4816 Feb, Screening breast examination Z12.39 and History of abnormal mammogram Z87.898 [place] [id number] [place] [address] 55573- 9281 Jan, [place] [id number] [place] [address] 75086- 9889 Jan, [place] [id number] [place] [address] 56008- 8709 Jan, Encounter for immunization Z23 [place] [id number] [place] [address] 44843- 0203 Jan, [place] [id number] [place] [address] 72194- 2248 Nov, Essential hypertension, benign 401.1 ; Hyperlipidemia 272.4 and Severe menstrual cramps 625.3 [facility] [id number] [place] [address] 91897- 0750 Sep, [facility] [id number] [place] [address] 65151- 7239 Sep, Intractable left heel pain 729.5 [facility] [id number] [place] [address] 61404- 4039 Sep, Unspecified breast screening V76.10 [facility] [id number] [place] [address] 44636- 3338 August, Conjunctivitis, left eye 372.30 [facility] [id number] [place] [address] 21329- 7220 Jul, [facility] [id number] [place] [address] 79141- 6611 Jul, [facility] [id number] [place] [address] 39675- 8923 May, [facility] [id number] [place] [address] 14622- 2109 May, [facility] [id number] [place] [address] 29695- 9385 Apr, [facility] [id number] [place] [address] 90099- 8607 Apr, [facility] [id number] [place] [address] 58157- 3242 Apr, [facility] [id number] [place] [address] 96558- 4177 Apr, [facility] [id number] [place] [address] 97818- 7385 Apr, [facility] [address] [address]- 3554 Apr, [facility] [place] [facility] [address] [id number] [place] [address]- 8136 Apr, [facility] [place] [facility] [address] [id number] [place] [address]- 6221 Apr, [facility] [place] [facility] [address] [id number] [place] [address]- 7932 Apr, [facility] [place] [facility] [address] [id number] [place] [address]- 0408 Feb, [facility] [place] [facility] [address] [id number] [place] [address]- 2254 Feb, [facility] [place] [facility] [address] [id number] [place] [address]- 4816 Feb, [facility] [place] [facility] [address] [id number] [place] [address]- 1626 Feb, [facility] [place] [facility] [address] [id number] [place] [address]- 4402 Feb, [facility] [place] [facility] [address] [id number] [place] [address]- 7095 Feb, [facility] [place] [facility] [address] [id number] [place] [address]- 0004 Jan, [facility] [place] [facility] [address] [id number] [place] [address]- 0201 Jan, [facility] [place] [facility] [address] [id number] [place] [address]- 4210 Jan, [facility] [place] [facility] [address] [id number] [place] [address]- 0594 Jan, [facility] [place] [facility] [address] [id number] [place] [address]- 5791 Jan, [facility] [place] [facility] [address] [id number] [place] [address]- 7444 14 Jan, 2014 [facility] [place] [facility] [address] [id number] [place] [address]- 2288 13 Jan, 2014 [facility] [place] [facility] [address] [id number] [place] [address]- 2681 13 Jan, 2014 [facility] [place] [facility] [address] [id number] [place] [address]- 7906 10 Jan, 2014 [facility] [place] [facility] [address] [id number] [place] [address]- 9509 Jan, [facility] [place] [facility] [address] [id number] [place] [address]- 8125 Jan, [facility] [place] [facility] [address] [id number] [place] [address]- 6882 Jan, [facility] [place] [facility] [address] [id number] [place] [address]- 4438 25 Dec, 2013 [facility] [place] [facility] [address] [id number] [place] [address]- 2175 25 Dec, 2013 [facility] [place] [facility] [address] [id number], [place] [address]- 8525 19 Dec, 2013 [facility] [place] [facility] [address] [id number] [place] [address]- 2657 19 Dec, 2013 [facility] [place] [facility] [address] [id number] [place] [address]- 0604 17 Dec, 2013 [facility] [place] [facility] [address] [id number], [place] [address]- 8694 17 Dec, 2013 [facility] [place] [facility] [address] [id number], [place] [address]- 6552 Dec, 2013 [facility] [place] [facility] [address] [id number] [place] [address]- 4203 Dec, [facility] [place] [facility] [address] [id number], [place] [address]- 6634 Nov, [facility] [place] [facility] [address] [id number] [place] [address]- 3583 Nov, [facility] [place] [facility] [address] [id number] [place] [address]- 0041 Oct, [facility] [place] [facility] [address] [id number] [place] [address]- 9131 Oct, [facility] [place] [facility] [address] [id number] [place] [address]- 6674 Jul, [facility] [place] [facility] [address] [id number] [place] [address]- 1633 Jul, [facility] [place] [facility] [address] [id number] [place] [address]- 7744 Jun, [facility] [place] [facility] [address] [id number] [place] [address]- 8521 Jun, [facility] [place] [facility] [address] [id number] [place] [address]- 2097 Jun, [facility] [place] [facility] [address] [id number] [place] [address]- 5875 Jun, [facility] [place] [facility] [address] [id number] [place] [address]- 9651 May, [facility] [place] [facility] [address] [id number] [place] [address]- 7656 May, [facility] [place] [facility] [address] [id number] [place] [address]- 3154 May, [facility] [place] [facility] [address] [id number] [place] [address]- 5382 May, [facility] [place] [facility] [address] [id number] [place] [address]- 7856 Apr, [facility] [place] [facility] [address] [id number] [place] 2416 Apr, [facility] [place] [facility] [address] [id number] [place] [address]- 1696 Apr, [facility] [place] [facility] [address] [id number] [place] [address]- 4256 Apr, [facility] [place] [facility] [address] [id number] [place] [address]- 3190 Nov, [facility] [place] [facility] [address] [id number] [place] [address]- 9966 Oct, [facility] [place] [facility] [address] [id number] [place] [address]- 1606 Sep, [facility] [place] [facility] [address] [id number] [place] [address]- 1715 August, [facility] [place] [facility] [address] [id number] [place] [address]- 0122 Jul, [facility] [place] [facility] [address] [id number] [place] [address]- 9543 Jun, [facility] [place] [facility] [address] [id number] [place] [address]- 8162 Jun, [facility] [place] [facility] [address] [id number] [place] [address]- 4298 May, [facility] [place] [facility] [address] [id number] [place] [address]- 1664 Mar, [facility] [place] [facility] [address] [id number] [place] [address]- 5738 Feb, [facility] [place] [facility] [address] [id number] [place] [address]- 1409 Feb, [facility] [place] [facility] [address] [id number], [place] [address]- 7939 Jan, [facility] [place] [facility] [address] [id number] [place] [address]- 8460 Jan, [facility] [place] [facility] [address] [id number] [place] [address]- 3296 Dec, [facility] [place] [facility] [address] [id number] [place] [address]- 2546 Nov, [facility] [place] [facility] [address] [place] [address]- 2546 Oct, [facility] [address] [place] [address]- 2546 August, [facility] [address] [place] [address]- 2546 August, [facility] [address] [place] [address]- 2546 August, [facility] [id number] [address]- 2546 May, [facility] [address] [place] [address]- 2546 Apr, [facility] [id number] [address]- 2546 Nov, [facility] [address] [place] [address]- 2546 August, [facility] [address] [place] [address]- 2546 August, [facility] [address] [place] [address]- 2546 Dec, [facility] [address] [place] [address]- 2546 August, [facility] [address] [place] [address]- 2546 Mar, [facility] [address] [place] [address]- 2546 Feb, [facility] [address] [place] [address]- 2546 Jan, [facility] [address] [place] [address]- 2546 Sep, IMMUNIZATIONS No Known Immunizations SOCIAL HISTORY Never Assessed REASON FOR VISIT Medication refill request PLAN OF CARE VITAL SIGNS MEDICATIONS Medication Instructions Dosage Frequency Start Date End Date Duration Status Ortho-Cyclen (28) 0.25-35 MG-MCG Orally Once a day 1 tablet 24h 28 Active RESULTS No Results PROCEDURES No Known procedures INSTRUCTIONS MEDICATIONS ADMINISTERED No Known Medications MEDICAL (GENERAL) HISTORY Type Description Date Medical History Essential hypertension, benign Medical History Post cholecystectomy Medical History Obesity Surgical History section x 2 Surgical History breast biopsy Surgical History cholecystectomy Hospitalization History Section x 2
--- OUTSIDE RECORDS SUMMARY | 2018-03-18 06:02 | XMS REPORT ---
Author Author LUIS CARLOS MCCARTNEY [facility] Address [address] [place] [address] Care Team Providers Care Correctional Supervisor Name Role Phone LUIS CARLOS MCCARTNEY Unavailable PROBLEMS Type Condition ICD9-CM Code DOD61-WN Code Onset Dates Condition Status SNOMED Code Assessment Abnormality of right breast on screening mammogram R92.8 Mar, Active 379635944 Assessment Screening for breast cancer Z12.39 Mar, Active 474219338 Problem Abnormality of right breast on screening mammogram R92.8 Active 154350816 Problem Insomnia G47.00 Active 454604790 Problem Hyperlipidemia E78.5 Active 26040794 Problem Prediabetes R73.09 Active 6749321 Problem Essential hypertension I10 Active 58380473 Problem Rosacea L71.9 Active 712501573 ALLERGIES Unknown Allergies SOCIAL HISTORY No smoking Hx information available PLAN OF CARE Activity Details Pending Test Mammogram Dx, Bilateral ,Reason: VITAL SIGNS MEDICATIONS Unknown Medications RESULTS No Results PROCEDURES No Known procedures IMMUNIZATIONS No Known Immunizations
--- OUTSIDE RECORDS SUMMARY | 2018-03-18 06:02 | XMS REPORT ---
Author Author LUIS CARLOS MCCARTNEY [facility] Address [address] [place] [address] Care Team Providers Care Clinical Informatics Manager Name Role Phone LUIS CARLOS MCCARTNEY Unavailable PROBLEMS Type Condition ICD9-CM Code IYS23-TL Code Onset Dates Condition Status SNOMED Code Problem Rosacea L71.9 Active 005545417 Problem Grief F43.20 Active 85650627 Problem Abnormality of right breast on screening mammogram R92.8 Active 363253577 Problem Insomnia G47.00 Active 358496751 Problem Prediabetes R73.09 Active 4649861 Problem Essential hypertension I10 Active 38472503 Problem Hyperlipidemia E78.5 Active 31905862 Problem Other elevated white blood cell (WBC) count D72.828 Active 107453918 Problem BMI 50.0-59.9, adult Z68.43 Active 304748930 Problem Vitamin D deficiency E55.9 Active 77471819 Problem Reactive depression F32.9 Active 43844069 Problem Dysmenorrhea N94.6 Active 680872000 Problem Vitamin B12 deficiency E53.8 Active 414734871 ALLERGIES Substance Reaction Event Type Date Status Flexeril Unknown Drug Allergy 14 May, 2017 Active ENCOUNTERS Encounter Location Date Diagnosis [facility] [id number] [place] [address] 09944- 2336 Oct, Visit for TB skin test Z11.1 [facility] [id number] [place] [address] [id number] Jul, Dental examination Z01.20 and Dental caries K02.9 [facility] [id number] [place] [address] 50681- 8632 14 May, 2017 Well woman exam Z01.419 ; Screening for breast cancer Z12.39 and BMI 50.0-59.9, adult Z68.43 [facility] [id number] [place] [address] 63519- 6057 Apr, [place] [address] [address]- 46[address] Mar, Other elevated white blood cell (WBC) count D72.828 [facility] [id number] [place] [address] 820963- 0366 Mar, Other elevated white blood cell (WBC) count D72.828 [facility] [id number] [place] [address] 05001- 2077 Mar, Essential hypertension I10 [place] [address] 361125- 8409 Feb, Acute non-recurrent frontal sinusitis J01.10 ; Cough R05 ; Essential hypertension I10 ; Dysmenorrhea N94.6 and BMI 50.0-59.9, adult Z68.43 [facility] [id number] [place] [address] 25152- 1927 Dec, Pain in right leg M79.604 [place] [address] 27607- 5105 Oct, [place] [id number] [place] [address] 10425- 3928 Sep, Pain in right leg M79.604 [facility] [id number] [place] [address] 87718- 4372 August, Essential hypertension I10 [facility] [id number] [place] [address] 87757 -7540 Jul, Impacted cerumen of right ear H61.21 [facility] [id number] [place] [address] 21423 -8707 Jul, Impacted cerumen of right ear H61.21 [facility] [id number] [place] [address] 03563- 2067 Jun, Vitamin B12 deficiency E53.8 ; Vitamin D deficiency E55.9 and Reactive depression F32.9 [facility] [id number] [place] [address] 80582- 7099 Apr, [place] [id number] [place] [address] 61900- 8001 Apr, Grief F43.20 [facility] [id number] [place] [address] 74568- 3079 13 Mar, 2016 Abnormality of right breast on screening mammogram R92.8 and Screening for breast cancer Z12.39 [place] [address] 38545- 5159 07 Mar, 2016 Well woman exam Z01.419 ; Pelvic pain R10.2 ; Abnormality of right breast on screening mammogram R92.8 and Screening for breast cancer Z12.39 [facility] [id number] [place] [address] 09771- 3440 Feb, [place] [id number] [place] [address] 39664- 7922 Feb, Vitamin B12 deficiency E53.8 [facility] [id number] [place] [address] 59920- 2182 Feb, Vitamin B12 deficiency E53.8 [place] [id number] [place] [address] 49160- 4373 Feb, Essential hypertension I10 and Vitamin B12 deficiency E53.8 [facility] [id number] [place] [address] 15715- 7178 Feb, Pain in right leg M79.604 ; Pain of left leg M79.605 ; Prediabetes R73.09 ; Hyperlipidemia E78.5 ; Essential hypertension I10 and Cramp of both lower extremities R25.2 [facility] [facility] [id number] [place] [address] 87353- 2066 Feb, [place] [id number] [place] [address] 74226- 2410 Sep, Dysuria R30.0 and Acute cystitis with hematuria N30.01 [facility] [id number] [place] [address] 49622- 6796 Jul, Essential hypertension I10 and Prediabetes R73.09 [facility] [id number] [place] [address] 19398- 2217 Apr, Acute upper respiratory infection, unspecified J06.9 and Other viral agents as the cause of diseases classified elsewhere B97.89 [facility] [place] [id number] [place] [address] 19202- 6825 Apr, [place] [id number] [place] [address] 75536- 7821 Mar, Essential hypertension, benign 401.1 and Hyperlipidemia 272.4 [address] [id number] [place] [address] 95318- 9889 Mar, [place] [id number] [place] [address] 58205- 5366 Feb, [place] [id number] [place] [address] 28140- 6959 Feb, [place] [id number] [place] [address] 43196- 4036 Feb, History of abnormal mammogram Z87.898 [facility] [id number] [place] [address] 30968- 8543 Feb, Screening breast examination Z12.39 and History of abnormal mammogram Z87.898 [facility] [id number] [place] [address] 17941- 5275 Jan, [place] [id number] [place] [address] 35576- 8360 Jan, [place] [id number] [place] [address] 14530- 3295 Jan, Encounter for immunization Z23 [place] [address] [address]- 5947 Jan, [facility] [id number] [place] [address] 68699- 0203 Nov, Essential hypertension, benign 401.1 ; Hyperlipidemia 272.4 and Severe menstrual cramps 625.3 [facility] [id number] [place] [address] 55403- 1380 Sep, [facility] [id number] [place] [address] 26005- 2649 Sep, Intractable left heel pain 729.5 [facility] [id number] [place] [address] 68828- 9392 Sep, Unspecified breast screening V76.10 [facility] [id number] [place] [address] 81141- 2763 August, Conjunctivitis, left eye 372.30 [facility] [id number] [place] [address] 80792- 8522 Jul, [facility] [id number] [place] [address] 91233- 4332 Jul, [facility] [id number] [place] [address] 67427- 3127 May, [facility] [address] [address]- 6734 May, [facility] [id number] [place] [address] 13657- 0652 Apr, [facility] [address] [address]- 1442 Apr, [facility] [id number] [place] [address] 17604- 3301 Apr, [facility] [address] [address]- 5179 Apr, [facility] [id number] [place] [address]- 4236 Apr, [facility] [place] [facility] [address] [id number] [place] [address]- 8875 Apr, [facility] [place] [facility] [address] [id number] [place] [address]- 5930 Apr, [facility] [place] [facility] [address] [id number] [place] [address]- 9558 Apr, [facility] [place] [facility] [address] [id number] [place] [address]- 5857 Apr, [facility] [place] [facility] [address] [id number] [place] [address]- 5844 Feb, [facility] [place] [facility] [address] [id number] [place] [address]- 4242 Feb, [facility] [place] [facility] [address] [id number] [place] [address]- 9606 Feb, [facility] [place] [facility] [address] [id number] [place] [address]- 4175 Feb, [facility] [place] [facility] [address] [id number] [place] [address]- 4857 Feb, [facility] [place] [facility] [address] [id number] [place] [address]- 8637 Feb, [facility] [place] [facility] [address] [id number] [place] [address]- 5440 30 Jan, 2014 [facility] [place] [facility] [address] [id number] [place] [address]- 7044 Jan, [facility] [place] [facility] [address] [id number] [place] [address]- 8031 Jan, [facility] [place] [facility] [address] [id number] [place] [address]- 2232 Jan, [facility] [place] [facility] [address] [id number] [place] [address]- 5067 14 Jan, 2014 [facility] [place] [facility] [address] [id number] [place] [address]- 3782 14 Jan, 2014 [facility] [place] [facility] [address] [id number] [place] [address]- 3225 13 Jan, 2014 [facility] [place] [facility] [address] [id number] [place] [address]- 3529 13 Jan, 2013 [facility] [place] [facility] [address] [id number] [place] [address]- 0559 10 Jan, 2014 [facility] [place] [facility] [address] [id number] [place] [address]- 4331 09 Jan, 2014 [facility] [place] [facility] [address] [id number] [place] [address]- 1552 07 Jan, 2014 [facility] [place] [facility] [address] [id number] [place] [address]- 8560 07 Jan, 2014 [facility] [place] [facility] [address] [id number] [place] [address]- 8187 25 Dec, 2013 [facility] [place] [facility] [address] [id number] [place] [address]- 3028 25 Sep, 2013 [facility] [place] [facility] [address] [id number] [place] [address]- 6461 19 Dec, 2013 [facility] [place] [facility] [address] [id number] [place] [address]- 6255 19 Sep, 2013 [facility] [place] [facility] [address] [id number] [place] [address]- 5800 17 Sep, 2013 [facility] [place] [facility] [address] [id number] [place] [address]- 8302 17 Sep, 2013 [facility] [place] [facility] [address] [id number] [place] [address]- 0162 06 Sep, 2013 [facility] [place] [facility] [address] [id number] [address]- 8319 06 Sep, 2013 [facility] [place] [facility] [address] [id number] [place] [address]- 1659 Nov, [facility] [place] [facility] [address] [id number] [place] [address]- 8717 Nov, [facility] [place] [facility] [address] [id number] [place] [address]- 5156 Oct, [facility] [place] [facility] [address] [id number] [place] [address]- 0427 Oct, [facility] [place] [facility] [address] [id number] [place] [address]- 4036 Jul, [facility] [place] [facility] [address] [id number] [place] [address]- 5769 Jul, [facility] [place] [facility] [address] [id number] [place] [address]- 4300 Jun, [facility] [place] [facility] [address] [id number] [place] [address]- 1760 Jun, [facility] [place] [facility] [address] [id number] [place] [address]- 3046 Jun, [facility] [place] [facility] [address] [id number] [place] [address]- 6192 Jun, [facility] [place] [facility] [address] [id number] [place] [address]- 4702 May, [facility] [place] [facility] [address] [id number] [place] [address]- 6798 May, [facility] [place] [facility] [address] [id number] [place] [address]- 5192 May, [facility] [place] [facility] [address] [id number] [place] 5177 May, [facility] [place] [facility] [address] [id number] [place] [address]- 7038 Apr, [facility] [place] [facility] [address] [id number] [place] 6724 Apr, [facility] [place] [facility] [address] [id number] [place] [address]- 3770 Apr, [facility] [place] [facility] [address] [id number] [place] [address]- 9452 Apr, [facility] [place] [facility] [address] [id number] [place] [address]- 9027 Nov, [facility] [place] [facility] [address] [id number] [place] [address]- 8205 Oct, [facility] [place] [facility] [address] [id number] [place] [address]- 5963 Sep, [facility] [place] [facility] [address] [id number] [place] [address]- 1406 August, [facility] [place] [facility] [address] [id number] [place] [address]- 2020 Jul, [facility] [place] [facility] [address] [id number] [place] [address]- 5884 Jun, [facility] [place] [facility] [address] [id number] [place] [address]- 3330 Jun, [facility] [place] [facility] [address] [id number] [place] [address]- 9621 May, [facility] [place] [facility] [address] [id number] [place] [address]- 9455 Mar, [facility] [place] [facility] [address] [id number] [place] [address]- 8010 Feb, [facility] [place] [facility] [address] [id number] [place] [address]- 8335 Feb, [facility] [place] [facility] [address] [id number] [place] [address]- 9969 Jan, [facility] [place] [facility] [address] [id number] [place] [address]- 2083 Jan, [facility] [place] [facility] [address] [id number] [place] [address]- 1846 Dec, [facility] [address] [id number] [place] [address] 2546 Nov, [facility] [address] [id number] [place] [address]- 2546 Oct, [facility] [address] [id number] [place] [address] 2546 August, [facility] [address] [id number] [place] [address]- 2546 August, [facility] [address] [id number] [place] [address]- 2546 August, [facility] [address] [id number] [place] [address]- 2546 May, [facility] [address] [id number] [place] [address]- 3861 Apr, [facility] [address] [id number] [place] [address] 2540 Nov, [facility] [address] [id number] [place] [address]- 7718 August, [facility] [address] [id number] [place] [address]- 1656 August, [facility] [address] [id number] [place] [address] 2545 Dec, [facility] [place] [facility] [address] [id number] [place] [address] 2546 August, [facility] [place] [facility] [address] [id number] [place] [address] 254 Mar, [facility] [place] [facility] [address] [id number] [place] [address]- 2546 Feb, [facility] [place] [facility] [address] [id number] [place] [address]- 2546 Jan, [facility] [place] [facility] [address] [id number] [place] [address]- 3743 Sep, IMMUNIZATIONS No Known Immunizations SOCIAL HISTORY Never Assessed REASON FOR VISIT Annual physical (female)--tcuppettRN PLAN OF CARE Activity Details Follow Up 1 Year Reason: VITAL SIGNS Height 61 in 2017-05-20 Weight 304.2 lbs 2017-05-20 Temperature 98.1 degrees Fahrenheit 2017-05-20 Heart Rate 88 bpm 2017-05-20 Respiratory Rate 20 2017-05-20 BMI 57.47 kg/m2 2017-05-20 Blood pressure systolic 122 mmHg 2017-05-20 Blood pressure diastolic 84 mmHg 2017-05-20 MEDICATIONS Medication Instructions Dosage Frequency Start Date End Date Duration Status Ortho-Cyclen (28) 0.25-35 MG-MCG Orally Once a day 1 tablet 24h 28 Active Vitamin D 1000 UNIT Orally Once a day 1 tablet 24h Active Lopressor 50 mg Orally Twice a day 1 tablet with food 12h 90 days Active Ibuprofen 800 MG Orally Three times a day as needed 1 tablet Active RESULTS No Results PROCEDURES No Known procedures INSTRUCTIONS MEDICATIONS ADMINISTERED No Known Medications MEDICAL (GENERAL) HISTORY Type Description Date Medical History Essential hypertension, benign Medical History Post cholecystectomy Medical History Obesity Surgical History section x 2 Surgical History breast biopsy Surgical History cholecystectomy Hospitalization History Section x 2
--- OUTSIDE RECORDS SUMMARY | 2018-03-18 06:02 | XMS REPORT ---
Author Author BIB LUIS CARLOS [facility] Address [address] [place] [address] Care Team Providers Care Taper Printed Circuit Layout Name Role Phone BIBLIBBYLUIS CARLOS Unavailable PROBLEMS Type Condition ICD9-CM Code GBS05-IV Code Onset Dates Condition Status SNOMED Code Problem Rosacea L71.9 Active 114718043 Problem Grief F43.20 Active 51665634 Problem Abnormality of right breast on screening mammogram R92.8 Active 636482696 Problem Insomnia G47.00 Active 035696586 Problem Prediabetes R73.09 Active 4995035 Problem Essential hypertension I10 Active 79308906 Problem Hyperlipidemia E78.5 Active 33741823 Problem Other elevated white blood cell (WBC) count D72.828 Active 067734713 Problem BMI 50.0-59.9, adult Z68.43 Active 584809263 Problem Vitamin D deficiency E55.9 Active 91756260 Problem Reactive depression F32.9 Active 25967335 Problem Dysmenorrhea N94.6 Active 793858413 Problem Vitamin B12 deficiency E53.8 Active 706038342 ALLERGIES No Information ENCOUNTERS Encounter Location Date Diagnosis [facility] [id number] [place] [address] 00354- 4081 14 May, 2017 Well woman exam Z01.419 ; Screening for breast cancer Z12.39 and BMI 50.0-59.9, adult Z68.43 [facility] [id number] [address] Apr, [facility] [id number] [place] [address] 47917- 1240 Mar, Other elevated white blood cell (WBC) count D72.828 [place] [address] [place] [address] 91685- 8385 Mar, Other elevated white blood cell (WBC) count D72.828 [place] [address] [place] [id number] [place] [address] 99549- 4604 Mar, Essential hypertension I10 [place] [id number] [place] [address] 26987- 8560 Feb, Acute non-recurrent frontal sinusitis J01.10 ; Cough R05 ; Essential hypertension I10 ; Dysmenorrhea N94.6 and BMI 50.0-59.9, adult Z68.43 [place] [id number] [place] [address] 21467- 8342 Dec, Pain in right leg M79.604 [place] [id number] [place] [address] 31253- 4157 Oct, [place] [address] [address]- 9913 Sep, Pain in right leg M79.604 [place] [id number] [place] [address] 92882- 3662 August, Essential hypertension I10 [facility] [place] [id number] [place] [address] 82611 -6280 14 Jul, 2016 Impacted cerumen of right ear H61.21 [facility] [place] [id number] [place] [address] 94176 -7972 Jul, Impacted cerumen of right ear H61.21 [place] [id number] [place] [address] 72222- 7144 Jun, Vitamin B12 deficiency E53.8 ; Vitamin D deficiency E55.9 and Reactive depression F32.9 [place] [id number] [place] [address] 50402- 1172 Apr, [place] [id number] [place] [address] 56384- 7759 Apr, Grief F43.20 [place] [address] [place] [address] 92301- 9875 13 Mar, 2016 Abnormality of right breast on screening mammogram R92.8 and Screening for breast cancer Z12.39 [place] [id number] [place] [address] 71932- 7968 07 Mar, 2016 Well woman exam Z01.419 ; Pelvic pain R10.2 ; Abnormality of right breast on screening mammogram R92.8 and Screening for breast cancer Z12.39 [place] [id number] [place] [address] 14173- 7156 Feb, [place] [id number] [place] [address] 64165- 0200 Feb, Vitamin B12 deficiency E53.8 [place] [id number] [place] [address] 86294- 4586 Feb, Vitamin B12 deficiency E53.8 [place] [id number] [place] [address] 24420- 2903 Feb, Essential hypertension I10 and Vitamin B12 deficiency E53.8 [place] [id number] [place] [address] 75480- 6936 16 Feb, 2016 Pain in right leg M79.604 ; Pain of left leg M79.605 ; Prediabetes R73.09 ; Hyperlipidemia E78.5 ; Essential hypertension I10 and Cramp of both lower extremities R25.2 [place] [id number] [place] [address] 16582- 6345 Feb, [place] [id number] [place] [address] 70210- 8795 Sep, Dysuria R30.0 and Acute cystitis with hematuria N30.01 [place] [address] [place] [address] 13932- 1566 Jul, Essential hypertension I10 and Prediabetes R73.09 [place] [id number] [place] [address] 08606- 4324 Apr, Acute upper respiratory infection, unspecified J06.9 and Other viral agents as the cause of diseases classified elsewhere B97.89 [place] [id number] [place] [address] 50209- 5454 Apr, [place] [id number] [place] [address] 00260- 0367 Mar, Essential hypertension, benign 401.1 and Hyperlipidemia 272.4 [place] [id number] [place] [address] 88838- 8572 Mar, [place] [id number] [place] [address] 86637- 0552 Feb, [place] [id number] [place] [address] 85004- 1045 Feb, [place] [id number] [place] [address] 13518- 0155 Feb, History of abnormal mammogram Z87.898 [place] [id number] [place] [address] 21083- 1561 Feb, Screening breast examination Z12.39 and History of abnormal mammogram Z87.898 [place] [id number] [place] [address] 51971- 2323 Jan, [place] [id number] [place] [address] 06165- 6585 Jan, [place] [id number] [place] [address] 26322- 2364 Jan, Encounter for immunization Z23 [address] [place] [address] 09030- 7075 Jan, [place] [id number] [place] [address] 36462- 1253 Nov, Essential hypertension, benign 401.1 ; Hyperlipidemia 272.4 and Severe menstrual cramps 625.3 [place] [id number] [place] [address] 88666- 2247 Sep, [facility] [facility] [address], [place] [address] 4564 Sep, Intractable left heel pain 729.5 [facility] [address] [address] 9087 Sep, Unspecified breast screening V76.10 [facility] [address], [place] [address]- 0294 August, Conjunctivitis, left eye 372.30 [facility] [address] [facility] [id number] [address]- 4058 Jul, [facility] [facility] [id number] [place] [address] 16632- 2518 Jul, [facility] [place] [facility] [address], [place] [address]- 0274 May, [facility] [address], [place] [address]- 1216 May, [facility] [address], [place] [address]- 8881 Apr, [facility] [address], [place] [address]- 9632 Apr, [facility] [address], [place] [address]- 3207 Apr, [facility] [id number] [address]- 0625 Apr, [facility] [id number], [place] [address]- 0571 Apr, [facility] [address] [facility] [id number] 7545 Apr, [facility] [id number] [address]- 0903 Apr, [facility] [address] [place] [address]- 4596 Apr, [facility] [place] [facility] [address] [id number] [place] [address]- 3532 Apr, [facility] [place] [facility] [address] [id number] [place] [address]- 8028 Feb, [facility] [place] [facility] [address] [id number] [place] [address]- 1602 Feb, [facility] [place] [facility] [address] [id number] [place] [address]- 4682 Feb, [facility] [place] [facility] [address] [id number] [place] [address]- 2879 Feb, [facility] [place] [facility] [address] [id number] [place] [address]- 0079 Feb, [facility] [place] [facility] [address] [id number] [place] [address]- 4504 Feb, [facility] [place] [facility] [address] [id number] [place] [address]- 6701 30 Jan, 2014 [facility] [place] [facility] [address] [id number] [place] [address]- 0577 22 Jan, 2014 [facility] [place] [facility] [address] [id number] [place] [address]- 1559 Jan, [facility] [place] [facility] [address] [id number] [place] [address]- 7352 Jan, [facility] [place] [facility] [address] [id number] [place] [address]- 9806 14 Jan, 2014 [facility] [place] [facility] [address] [id number] [place] [address]- 4472 14 Jan, 2014 [facility] [place] [facility] [address] [id number] [place] [address]- 9569 Jan, [facility] [place] [facility] [address] [id number] [place] [address]- 8189 Jan, [facility] [place] [facility] [address] [id number] [place] [address]- 4824 10 Jan, 2014 [facility] [place] [facility] [address] [id number] [place] [address]- 5020 Jan, [facility] [place] [facility] [address] [id number] [place] [address]- 3462 Jan, [facility] [place] [facility] [address] [id number] [place] [address]- 3540 Jan, [facility] [place] [facility] [address] [id number] [place] [address]- 9886 Dec, [facility] [place] [facility] [address] [id number] [place] [address]- 0975 Dec, [facility] [place] [facility] [address] [id number] [place] [address]- 9687 Dec, [facility] [place] [facility] [address] [id number] [place] [address]- 5337 Dec, [facility] [place] [facility] [address] [id number] [place] [address]- 2359 Dec, [facility] [place] [facility] [address] [id number] [place] [address]- 3684 Dec, [facility] [place] [facility] [address] [id number] [place] [address]- 1089 Dec, [facility] [place] [facility] [address] [id number] [place] [address]- 7912 Dec, [facility] [place] [facility] [address] [id number] [place] [address]- 8888 Nov, [facility] [place] [facility] [address] [id number] [place] [address]- 3357 Nov, [facility] [place] [facility] [address] [id number] [place] [address]- 3277 Oct, [facility] [place] [facility] [address] [id number] [place] [address]- 1572 Oct, [facility] [place] [facility] [address] [id number] [place] [address]- 0155 Jul, [facility] [place] [facility] [address] [id number] [place] [address]- 3460 Jul, [facility] [place] [facility] [address] [id number] [place] [address]- 3912 Jun, [facility] [place] [facility] [address] [id number] [place] [address]- 0471 Jun, [facility] [place] [facility] [address] [id number] [place] [address]- 8315 Jun, [facility] [place] [facility] [address] [id number] [place] [address]- 7555 Jun, [facility] [place] [facility] [address] [id number] [place] [address]- 0815 May, [facility] [place] [facility] [address] [id number] [place] [address]- 9439 May, [facility] [place] [facility] [address] [id number] [place] [address]- 8986 May, [facility] [place] [facility] [address] [id number] [place] [address]- 0177 May, [facility] [place] [facility] [address] [id number] [place] [address]- 7594 Apr, [facility] [place] [facility] [address] [id number] [place] [address]- 6586 Apr, [facility] [place] [facility] [address] [id number] [place] [address]- 1182 Apr, [facility] [place] [facility] [address] [id number] [place] [address]- 1704 Apr, [facility] [place] [facility] [address] [id number] [place] [address]- 1111 Nov, [facility] [place] [facility] [address] [id number] [place] [address] 2546 Oct, [facility] [address] [id number] [place] [address]- 5877 Sep, [facility] [place] [facility] [address] [id number] [place] [address]- 2546 August, [facility] [place] [facility] [address] [id number] [place] [address]- 7416 Jul, [facility] [place] [facility] [address] [id number] [place] [address] 2544 Jun, [facility] [place] [facility] [address] [id number] [place] [address]- 0526 Jun, [facility] [place] [facility] [address] [id number] [place] [address]- 9946 May, [facility] [place] [facility] [address] [id number] [place] [address]- 4416 Mar, [facility] [address] [id number] [place] [address]- 4067 Feb, [facility] [place] [facility] [address] [id number] [place] [address]- 4658 Feb, [facility] [place] [facility] [address] [id number] [place] [address]- 2696 Jan, [facility] [place] [facility] [address] [id number] [place] [address] 2546 Jan, [facility] [place] [facility] [address] [id number] [place] [address]- 2546 Dec, [facility] [place] [facility] [address] [id number] [place] [address]- 2546 Nov, [facility] [place] [facility] [address] [id number] [place] [address]- 2546 Oct, [facility] [place] [facility] [address] [id number] [place] [address]- 5446 August, [facility] [address] [facility] [id number], [place] [address]- 2546 August, [facility] [address] [facility] [id number], [place] [address]- 2546 August, [facility] [address] [facility] [id number], [place] [address]- 2546 May, [facility] [address] [facility] [id number], [place] [address]- 2546 Apr, [facility] [address] [facility] [id number], [place] [address]- 2546 Nov, [facility] [id number], [place] [address]- 2546 August, [facility] [address], [place] [address]- 2546 August, [facility] [address], [place] [address]- 2546 Dec, [facility] [address], [place] [address]- 2546 August, [facility] [address], [place] [address]- 2546 Mar, [facility] [id number], [place] [address]- 2546 Feb, [facility] [id number], [place] [address]- 2546 Jan, [facility] [id number] [address]- 2546 Sep, IMMUNIZATIONS No Known Immunizations SOCIAL HISTORY Never Assessed REASON FOR VISIT Returned call PLAN OF CARE VITAL SIGNS MEDICATIONS [...]
--- OUTSIDE RECORDS SUMMARY | 2018-03-18 06:03 | XMS REPORT ---
Author Author LUIS CARLOS MCCARTNEY [employer] Address Unknown Phone Unavailable Care Team Providers Care Egg Separator Name Role Phone LUIS CARLOS MCCARTNEY Unavailable Allergies No Known Allergies Problems Problem Type Condition Code Onset Dates Condition Status Problem Essential hypertension I10 Active Problem Rosacea L71.9 Active Problem Insomnia G47.00 Active Assessment Vitamin B12 deficiency E53.8 Active Problem Hyperlipidemia E78.5 Active Problem Prediabetes R73.09 Active Medications No Known Medications Procedures Procedure Coding System Code Date THER/PROPH/DIAG INJ, SC/IM CPT-4 67873 Feb 27, 2016 B12, VITAMIN (UP TO 1000 MCG) CPT-4 J3420 Feb 27, 2016 Results No Known Results Summary Purpose [employer] Submission
--- OUTSIDE RECORDS SUMMARY | 2018-03-18 06:03 | XMS REPORT ---
Author Author LUIS CARLOS MCCARTNEY [employer] Address Unknown Phone Unavailable Care Team Providers Care Receiver Dispatcher Name Role Phone LUIS CARLOS MCCARTNEY Unavailable Allergies No Known Allergies Problems Problem Type Condition Code Onset Dates Condition Status Problem Essential hypertension I10 Active Problem Rosacea L71.9 Active Problem Insomnia G47.00 Active Assessment Vitamin B12 deficiency E53.8 Active Problem Hyperlipidemia E78.5 Active Problem Prediabetes R73.09 Active Medications No Known Medications Procedures Procedure Coding System Code Date VENIPUNCT, ROUTINE* CPT-4 08048 Feb 27, 2016 INTRINSIC FACTOR ANTIBODY CPT-4 85152 Feb 27, 2016 Results Name Result Date Reference Range Unit Abnormality Flag ROUTINE VENIPUNCTURE INTRINSIC FACTOR ABS, SERUM ----Intrinsic Factor Abs, Serum 1.1 [id number] 0.0-1.1 AU/mL Summary Purpose [employer] Submission
--- OUTSIDE RECORDS SUMMARY | 2018-03-18 06:03 | XMS REPORT ---
Author Author BIB LUIS CARLOS [facility] Address [address] [place] [address] Care Team Providers Care Home Therapy Teacher Name Role Phone BIBLIBBYLUIS CARLOS Unavailable PROBLEMS Type Condition ICD9-CM Code XVR47-WH Code Onset Dates Condition Status SNOMED Code Problem Rosacea L71.9 Active 764907690 Problem Grief F43.20 Active 91897176 Problem Abnormality of right breast on screening mammogram R92.8 Active 593362547 Problem Insomnia G47.00 Active 460191076 Problem Prediabetes R73.09 Active 7543640 Problem Essential hypertension I10 Active 32624190 Problem Hyperlipidemia E78.5 Active 38205789 Problem Other elevated white blood cell (WBC) count D72.828 Active 977046723 Problem BMI 50.0-59.9, adult Z68.43 Active 050089680 Problem Vitamin D deficiency E55.9 Active 88910631 Problem Reactive depression F32.9 Active 20778414 Problem Dysmenorrhea N94.6 Active 640227736 Problem Vitamin B12 deficiency E53.8 Active 242835755 ALLERGIES No Information ENCOUNTERS Encounter Location Date Diagnosis [facility] [address] [place] [address] 42854- 5709 14 May, 2017 Well woman exam Z01.419 ; Screening for breast cancer Z12.39 and BMI 50.0-59.9, adult Z68.43 [facility] [address] [id number], [place] [address] Apr, [facility] [address] [place] [address] 77907- 6519 Mar, Other elevated white blood cell (WBC) count D72.828 [place] [address] [place] [address] 27671- 8804 Mar, Other elevated white blood cell (WBC) count D72.828 [place] [id number] [place] [address] 39972- 2126 Mar, Essential hypertension I10 [place] [id number] [place] [address] 21572- 9863 Feb, Acute non-recurrent frontal sinusitis J01.10 ; Cough R05 ; Essential hypertension I10 ; Dysmenorrhea N94.6 and BMI 50.0-59.9, adult Z68.43 [place] [id number] [place] [address] 91961- 2191 Dec, Pain in right leg M79.604 [place] [id number] [place] [address] 12013- 8729 Oct, [place] [address] 46760- 9190 Sep, Pain in right leg M79.604 [place] [id number] [place] [address] 74305- 2877 August, Essential hypertension I10 [facility] [place] [id number] [place] [address] 99802 -1568 14 Jul, 2016 Impacted cerumen of right ear H61.21 [facility] [place] [id number] [place] [address] 78957 -2238 Jul, Impacted cerumen of right ear H61.21 [place] [id number] [place] [address] 27807- 8855 Jun, Vitamin B12 deficiency E53.8 ; Vitamin D deficiency E55.9 and Reactive depression F32.9 [place] [id number] [place] [address] 73257- 3054 Apr, [place] [id number] [place] [address] 87517- 2728 Apr, Grief F43.20 [place] [address] [place] [address] 33697- 3734 13 Mar, 2016 Abnormality of right breast on screening mammogram R92.8 and Screening for breast cancer Z12.39 [place] [id number] [place] [address] 78471- 6807 07 Mar, 2016 Well woman exam Z01.419 ; Pelvic pain R10.2 ; Abnormality of right breast on screening mammogram R92.8 and Screening for breast cancer Z12.39 [place] [id number] [place] [address] 74010- 8262 Feb, [place] [id number] [place] [address] 60154- 4751 Feb, Vitamin B12 deficiency E53.8 [place] [id number] [place] [address] 51588- 7167 Feb, Vitamin B12 deficiency E53.8 [place] [id number] [place] [address] 62142- 3980 Feb, Essential hypertension I10 and Vitamin B12 deficiency E53.8 [place] [id number] [place] [address] 31358- 1830 16 Feb, 2016 Pain in right leg M79.604 ; Pain of left leg M79.605 ; Prediabetes R73.09 ; Hyperlipidemia E78.5 ; Essential hypertension I10 and Cramp of both lower extremities R25.2 [place] [id number] [place] [address] 99393- 2382 Feb, [place] [id number] [place] [address] 66139- 8068 Sep, Dysuria R30.0 and Acute cystitis with hematuria N30.01 [place] [address] [place] [address] 30010- 0176 Jul, Essential hypertension I10 and Prediabetes R73.09 [place] [id number] [place] [address] 07146- 9923 Apr, Acute upper respiratory infection, unspecified J06.9 and Other viral agents as the cause of diseases classified elsewhere B97.89 [place] [id number] [place] [address] 10279- 7079 Apr, [place] [id number] [place] [address] 19828- 2033 Mar, Essential hypertension, benign 401.1 and Hyperlipidemia 272.4 [place] [id number] [place] [address] 05805- 2164 Mar, [place] [id number] [place] [address] 09040- 8484 Feb, [place] [id number] [place] [address] 16366- 1023 Feb, [place] [id number] [place] [address] 42152- 2491 Feb, History of abnormal mammogram Z87.898 [place] [id number] [place] [address] 18869- 6360 Feb, Screening breast examination Z12.39 and History of abnormal mammogram Z87.898 [place] [id number] [place] [address] 59161- 1931 Jan, [place] [id number] [place] [address] 63295- 7608 Jan, [place] [id number] [place] [address] 35244- 9379 Jan, Encounter for immunization Z23 [address] [place] [address] 39447- 5159 Jan, [place] [id number] [place] [address] 14970- 1345 Nov, Essential hypertension, benign 401.1 ; Hyperlipidemia 272.4 and Severe menstrual cramps 625.3 [place] [id number] [place] [address] 99742- 0877 Sep, [facility] [address], [place] [address] 7514 Sep, Intractable left heel pain 729.5 [facility] [address] 2689 Sep, Unspecified breast screening V76.10 [facility] [address], [place] [address] 9466 August, Conjunctivitis, left eye 372.30 [facility] [address] [facility] [id number], [place] [address]- 7755 Jul, [facility] [id number] [place] [address] 73355- 1566 Jul, [facility] [address], [place] [address]- 3800 May, [facility] [address], [place] [address]- 6814 May, [facility] [address], [place] [address]- 8326 Apr, [facility] [address], [place] [address]- 0408 Apr, [facility] [address], [place] [address]- 4913 Apr, [facility] [id number] [address]- 9723 Apr, [facility] [id number] [address]- 7627 Apr, [facility] [address] [facility] [id number] 0401 Apr, [facility] [id number], [place] [address]- 0327 Apr, [facility] [address] [place] [address]- 1780 Apr, [facility] [place] [facility] [address] [id number] [place] [address]- 5572 Apr, [facility] [place] [facility] [address] [id number] [place] [address]- 5044 Feb, [facility] [place] [facility] [address] [id number] [place] [address]- 6344 Feb, [facility] [place] [facility] [address] [id number] [place] [address]- 3243 Feb, [facility] [place] [facility] [address] [id number] [place] [address]- 7029 Feb, [facility] [place] [facility] [address] [id number] [place] [address]- 6081 Feb, [facility] [place] [facility] [address] [id number] [place] [address]- 6375 Feb, [facility] [place] [facility] [address] [id number] [place] [address]- 7718 30 Jan, 2014 [facility] [place] [facility] [address] [id number] [place] [address]- 8225 22 Jan, 2014 [facility] [place] [facility] [address] [id number] [place] [address]- 3153 Jan, [facility] [place] [facility] [address] [id number] [place] [address]- 5811 Jan, [facility] [place] [facility] [address] [id number] [place] [address]- 7132 14 Jan, 2014 [facility] [place] [facility] [address] [id number] [place] [address]- 0022 14 Jan, 2014 [facility] [place] [facility] [address] [id number] [place] [address]- 7245 Jan, [facility] [place] [facility] [address] [id number] [place] [address]- 9743 Jan, [facility] [place] [facility] [address] [id number] [place] [address]- 8812 10 Jan, 2014 [facility] [place] [facility] [address] [id number] [place] [address]- 7414 Jan, [facility] [place] [facility] [address] [id number] [place] [address]- 5684 Jan, [facility] [place] [facility] [address] [id number] [place] [address]- 6016 Jan, [facility] [place] [facility] [address] [id number] [place] [address]- 8815 Dec, [facility] [place] [facility] [address] [id number] [place] [address]- 5479 Dec, [facility] [place] [facility] [address] [id number] [place] [address]- 8012 Dec, [facility] [place] [facility] [address] [id number] [place] [address]- 2448 Dec, [facility] [place] [facility] [address] [id number] [place] [address]- 3479 Dec, [facility] [place] [facility] [address] [id number] [place] [address]- 6145 Dec, [facility] [place] [facility] [address] [id number] [place] [address]- 2034 Dec, [facility] [place] [facility] [address] [id number] [place] [address]- 4412 Dec, [facility] [place] [facility] [address] [id number] [place] [address]- 7260 Nov, [facility] [place] [facility] [address] [id number] [place] [address]- 6131 Nov, [facility] [place] [facility] [address] [id number] [place] [address]- 7076 Oct, [facility] [place] [facility] [address] [id number] [place] [address]- 3755 Oct, [facility] [place] [facility] [address] [id number] [place] [address]- 3754 Jul, [facility] [place] [facility] [address] [id number] [place] [address]- 1409 Jul, [facility] [place] [facility] [address] [id number] [place] [address]- 8604 Jun, [facility] [place] [facility] [address] [id number] [place] [address]- 6453 Jun, [facility] [place] [facility] [address] [id number] [place] [address]- 5303 Jun, [facility] [place] [facility] [address] [id number] [place] [address]- 8295 Jun, [facility] [place] [facility] [address] [id number] [place] [address]- 7367 May, [facility] [place] [facility] [address] [id number] [place] [address]- 3466 May, [facility] [place] [facility] [address] [id number] [place] [address]- 5400 May, [facility] [place] [facility] [address] [id number] [place] [address]- 4592 May, [facility] [place] [facility] [address] [id number] [place] [address]- 2362 Apr, [facility] [place] [facility] [address] [id number] [place] [address]- 2545 Apr, [facility] [place] [facility] [address] [id number] [place] [address]- 2279 Apr, [facility] [place] [facility] [address] [id number] [place] [address]- 8067 Apr, [facility] [place] [facility] [address] [id number] [place] [address]- 5721 Nov, [facility] [place] [facility] [address] [id number] [place] [address] 2546 Oct, [facility] [address] [id number] [place] [address]- 1697 Sep, [facility] [place] [facility] [address] [id number] [place] [address]- 2546 August, [facility] [place] [facility] [address] [id number] [place] [address]- 6536 Jul, [facility] [place] [facility] [address] [id number] [place] [address] 2542 Jun, [facility] [place] [facility] [address] [id number] [place] [address]- 6586 Jun, [facility] [place] [facility] [address] [id number] [place] [address]- 1296 May, [facility] [place] [facility] [address] [id number] [place] [address]- 6446 Mar, [facility] [address] [id number] [place] [address]- 5934 Feb, [facility] [place] [facility] [address] [id number] [place] [address]- 4694 Feb, [facility] [place] [facility] [address] [id number] [place] [address]- 5546 Jan, [facility] [place] [facility] [address] [id number] [place] [address] 2546 Jan, [facility] [place] [facility] [address] [id number] [place] [address]- 2546 Dec, [facility] [place] [facility] [address] [id number] [place] [address]- 2546 Nov, [facility] [place] [facility] [address] [id number] [place] [address]- 2546 Oct, [facility] [place] [facility] [address] [id number] [place] [address]- 8926 August, [facility] [address] [facility] [id number], [place] [address]- 2546 August, [facility] [address], [place] [address]- 2546 August, [facility] [address], [place] [address]- 2546 May, [facility] [address], [place] [address]- 2546 Apr, [facility] [id number], [place] [address]- 2546 Nov, [facility] [address], [place] [address]- 2546 August, [facility] [address], [place] [address]- 2546 August, [facility] [address], [place] [address]- 2546 Dec, [facility] [address], [place] [address]- 2546 August, [facility] [address], [place] [address]- 2546 Mar, [facility] [address], [place] [address]- 2546 Feb, [facility] [id number] [address]- 2546 Jan, [facility] [id number] [address]- 2546 Sep, IMMUNIZATIONS No Known Immunizations SOCIAL HISTORY Never Assessed REASON FOR VISIT Refill Request PLAN OF CARE VITAL SIGNS MEDICATIONS Medication Instructions Dosage Frequency Start Date End Date Duration Status Ibuprofen 800 MG Orally Three times a day as needed 1 tablet 90 days Active RESULTS No Results PROCEDURES No Known procedures INSTRUCTIONS MEDICATIONS ADMINISTERED No Known Medications MEDICAL (GENERAL) HISTORY Type Description Date Medical History Essential hypertension, benign Medical History Post cholecystectomy Medical History Obesity Surgical History section x 2 Surgical History breast biopsy Surgical History cholecystectomy Hospitalization History Section x 2
--- OUTSIDE RECORDS SUMMARY | 2018-03-18 06:03 | XMS REPORT ---
Author Author TYRONE SHIRLEY [facility] eClinicalWorks Address Unknown Phone Unavailable Care Team Providers Care Hat Lining Paster Name Role Phone TYRONE SHIRLEY CP Unavailable Allergies No Known Allergies Problems Problem Type Condition Code Onset Dates Condition Status Problem Insomnia, unspecified 780.52 Active Problem Unspecified abnormal mammogram 793.80 Active Problem Hyperlipidemia 272.4 Active Problem Essential hypertension, benign 401.1 Active Problem Rosacea 695.3 Active Problem 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 Active Problem Calcaneal spur 726.73 Active Medications Medication Code System Code Instructions Start Date End Date Status Dosage Ortho-Cyclen (28) [facility] [address]-20 0.25-35 MG-MCG Orally Once a day Jan 1 tablet Results No Known Results Summary Purpose eClinicalWorks Submission
--- OUTSIDE RECORDS SUMMARY | 2018-03-18 06:03 | XMS REPORT ---
Author Author LUIS CARLOS MCCARTNEY e[employer] Address Unknown Phone Unavailable Care Team Providers Care Sap Senior Developer Name Role Phone LUIS CARLOS MCCARTNEY CP Unavailable Allergies No Known Allergies Problems Problem Type Condition Code Onset Dates Condition Status Assessment Essential hypertension, benign 401.1 Active Problem Essential hypertension, benign 401.1 Active Problem Rosacea 695.3 Active Assessment Hyperlipidemia 272.4 Active Problem History of abnormal mammogram Z87.898 Active Problem Hyperlipidemia 272.4 Active Problem Screening breast examination Z12.39 Active Problem 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 Active Problem Calcaneal spur 726.73 Active Problem Insomnia, unspecified 780.52 Active Problem Unspecified abnormal mammogram 793.80 Active Medications No Known Medications Procedures Procedure Coding System Code Date COMPREHEN METABOLIC PANEL CPT-4 09748 Apr 05, 2015 VENIPUNCT, ROUTINE* CPT-4 28952 Apr 05, 2015 LIPID PANEL CPT-4 32124 Apr 05, 2015 Results Name Result Date Reference Range Unit Abnormality Flag ROUTINE VENIPUNCTURE Summary Purpose eClinicalWorks Submission
--- OUTSIDE RECORDS SUMMARY | 2018-03-18 06:03 | XMS REPORT ---
Author Author BIB LUIS CARLOS [facility] Address [address] [place] [address] Care Team Providers Care Landscape Artist Name Role Phone LUIS CARLOS MCCARTNEY Unavailable PROBLEMS Type Condition ICD9-CM Code EQM86-NV Code Onset Dates Condition Status SNOMED Code Problem Rosacea L71.9 Active 536200693 Problem Grief F43.20 Active 43852644 Problem Abnormality of right breast on screening mammogram R92.8 Active 886245391 Problem Insomnia G47.00 Active 966387332 Problem Prediabetes R73.09 Active 1078575 Problem Essential hypertension I10 Active 60623386 Problem Hyperlipidemia E78.5 Active 08544754 Problem Other elevated white blood cell (WBC) count D72.828 Active 840017636 Problem BMI 50.0-59.9, adult Z68.43 Active 656772943 Problem Vitamin D deficiency E55.9 Active 77253874 Problem Reactive depression F32.9 Active 22886501 Problem Dysmenorrhea N94.6 Active 773166575 Problem Vitamin B12 deficiency E53.8 Active 454239838 ALLERGIES No Information ENCOUNTERS Encounter Location Date Diagnosis [facility] [id number] [place] [address] [id number] 17 Jul, 2017 Dental examination Z01.20 and Dental caries K02.9 [facility] [id number] [place] [address] 11610- 1624 14 May, 2017 Well woman exam Z01.419 ; Screening for breast cancer Z12.39 and BMI 50.0-59.9, adult Z68.43 [facility] [id number] [place] [address] 40487- 2944 Apr, [facility] [id number] [place] [address] 95347- 3345 Mar, Other elevated white blood cell (WBC) count D72.828 [place] [id number] [place] [address] 48608- 2460 Mar, Other elevated white blood cell (WBC) count D72.828 [place] [id number] [place] [address] 53056- 9915 Mar, Essential hypertension I10 [place] [address] 42938- 5622 Feb, Acute non-recurrent frontal sinusitis J01.10 ; Cough R05 ; Essential hypertension I10 ; Dysmenorrhea N94.6 and BMI 50.0-59.9, adult Z68.43 [place] [address] 26875- 4392 Dec, Pain in right leg M79.604 [place] [address] 46835- 3325 Oct, [place] [address] 90940- 8124 Sep, Pain in right leg M79.604 [place] [id number] [place] [address] 05021- 7056 August, Essential hypertension I10 [facility] [id number] [place] [address] 46585 -2961 Jul, Impacted cerumen of right ear H61.21 [facility] [place] [id number] [place] [address] 55049 -7759 Jul, Impacted cerumen of right ear H61.21 [place] [id number] [place] [address] 20521- 7130 Jun, Vitamin B12 deficiency E53.8 ; Vitamin D deficiency E55.9 and Reactive depression F32.9 [place] [id number] [place] [address] 27426- 0807 Apr, [place] [id number] [place] [address] 39587- 4236 Apr, Grief F43.20 [place] [id number] [place] [address] 45312- 1176 13 Mar, 2016 Abnormality of right breast on screening mammogram R92.8 and Screening for breast cancer Z12.39 [place] [address] 87402- 6484 07 Mar, 2016 Well woman exam Z01.419 ; Pelvic pain R10.2 ; Abnormality of right breast on screening mammogram R92.8 and Screening for breast cancer Z12.39 [place] [id number] [place] [address] 79569- 1740 Feb, [place] [id number] [place] [address] 64059- 3106 Feb, Vitamin B12 deficiency E53.8 [place] [id number] [place] [address] 20145- 8667 Feb, Vitamin B12 deficiency E53.8 [place] [id number] [place] [address] 06345- 3151 Feb, Essential hypertension I10 and Vitamin B12 deficiency E53.8 [place] [id number] [place] [address] 31571- 5778 16 Feb, 2016 Pain in right leg M79.604 ; Pain of left leg M79.605 ; Prediabetes R73.09 ; Hyperlipidemia E78.5 ; Essential hypertension I10 and Cramp of both lower extremities R25.2 [place] [id number] [place] [address] 72733- 7938 Feb, [place] [address] 43957- 0071 Sep, Dysuria R30.0 and Acute cystitis with hematuria N30.01 [place] [id number] [place] [address] 44905- 0422 Jul, Essential hypertension I10 and Prediabetes R73.09 [place] [id number] [place] [address] 22906- 7302 Apr, Acute upper respiratory infection, unspecified J06.9 and Other viral agents as the cause of diseases classified elsewhere B97.89 [place] [id number] [place] [address] 39838- 0310 Apr, [place] [address] 815909- 6042 Mar, Essential hypertension, benign 401.1 and Hyperlipidemia 272.[address] 61853- 3345 Mar, [place] [id number] [place] [address] 34462- 7320 Feb, [address] 70549- 6835 Feb, [place] [id number] [place] [address] 07210- 6764 Feb, History of abnormal mammogram Z87.898 [place] [id number] [place] [address] 18239- 0748 Feb, Screening breast examination Z12.39 and History of abnormal mammogram Z87.898 [id number] [place] [address] 20175- 7493 Jan, [place] [id number] [place] [address] 62530- 0590 Jan, [place] [id number] [place] [address] 80806- 0875 Jan, Encounter for immunization Z23 [place] [id number] [place] [address] 06781- 8101 Jan, [place] [id number] [place] [address] 81059- 2315 Nov, Essential hypertension, benign 401.1 ; Hyperlipidemia 272.4 and Severe menstrual cramps 625.3 [facility] [id number] [place] [address] 11671- 3588 Sep, [facility] [id number] [place] [address] 74454- 9656 Sep, Intractable left heel pain 729.5 [facility] [id number] [place] [address] 76266- 6578 Sep, Unspecified breast screening V76.10 [facility] [id number] [place] [address] 15191- 6955 August, Conjunctivitis, left eye 372.30 [facility] [id number] [place] [address] 55820- 2885 Jul, [facility] [id number] [place] [address] 05807- 0648 Jul, [facility] [id number] [place] [address] 12002- 4412 May, [facility] [id number] [place] [address] 88371- 6600 May, [facility] [id number] [place] [address] 29065- 6366 Apr, [facility] [id number] [place] [address] 20899- 7013 Apr, [facility] [id number] [place] [address] 80790- 0420 Apr, [facility] [id number] [place] [address] 46620- 6107 Apr, [facility] [id number] [place] [address] 93830- 2496 Apr, [facility] [address] [address]- 8380 Apr, [facility] [place] [facility] [address] [id number] [place] [address]- 9687 Apr, [facility] [place] [facility] [address] [id number] [place] [address]- 5318 Apr, [facility] [place] [facility] [address] [id number] [place] [address]- 5499 Apr, [facility] [place] [facility] [address] [id number] [place] [address]- 9334 Feb, [facility] [place] [facility] [address] [id number] [place] [address]- 1471 Feb, [facility] [place] [facility] [address] [id number] [place] [address]- 4469 Feb, [facility] [place] [facility] [address] [id number] [place] [address]- 0447 Feb, [facility] [place] [facility] [address] [id number] [place] [address]- 8712 Feb, [facility] [place] [facility] [address] [id number] [place] [address]- 6805 Feb, [facility] [place] [facility] [address] [id number] [place] [address]- 7360 Jan, [facility] [place] [facility] [address] [id number] [place] [address]- 7117 Jan, [facility] [place] [facility] [address] [id number] [place] [address]- 9241 Jan, [facility] [place] [facility] [address] [id number] [place] [address]- 9762 Jan, [facility] [place] [facility] [address] [id number] [place] [address]- 7099 Jan, [facility] [place] [facility] [address] [id number] [place] [address]- 8015 14 Jan, 2014 [facility] [place] [facility] [address] [id number] [place] [address]- 9552 13 Jan, 2014 [facility] [place] [facility] [address] [id number] [place] [address]- 9036 13 Jan, 2014 [facility] [place] [facility] [address] [id number] [place] [address]- 0595 10 Jan, 2014 [facility] [place] [facility] [address] [id number] [place] [address]- 1371 Jan, [facility] [place] [facility] [address] [id number] [place] [address]- 5768 Jan, [facility] [place] [facility] [address] [id number] [place] [address]- 8908 Jan, [facility] [place] [facility] [address] [id number] [place] [address]- 0096 25 Dec, 2013 [facility] [place] [facility] [address] [id number] [place] [address]- 6927 25 Dec, 2013 [facility] [place] [facility] [address] [id number] [address]- 6612 19 Dec, 2013 [facility] [place] [facility] [address] [id number] [place] [address]- 1065 19 Dec, 2013 [facility] [place] [facility] [address] [id number] [place] [address]- 8529 17 Dec, 2013 [facility] [place] [facility] [address] [id number], [place] [address]- 4137 17 Dec, 2013 [facility] [place] [facility] [address] [id number], [place] [address]- 1961 Dec, 2013 [facility] [place] [facility] [address] [id number] [place] [address]- 2434 Dec, [facility] [place] [facility] [address] [id number], [place] [address]- 6680 Nov, [facility] [place] [facility] [address] [id number] [place] [address]- 8338 Nov, [facility] [place] [facility] [address] [id number] [place] [address]- 5061 Oct, [facility] [place] [facility] [address] [id number] [place] [address]- 1266 Oct, [facility] [place] [facility] [address] [id number] [place] [address]- 6508 Jul, [facility] [place] [facility] [address] [id number] [place] [address]- 2226 Jul, [facility] [place] [facility] [address] [id number] [place] [address]- 9876 Jun, [facility] [place] [facility] [address] [id number] [place] [address]- 5804 Jun, [facility] [place] [facility] [address] [id number] [place] [address]- 4067 Jun, [facility] [place] [facility] [address] [id number] [place] [address]- 3129 Jun, [facility] [place] [facility] [address] [id number] [place] [address]- 9909 May, [facility] [place] [facility] [address] [id number] [place] [address]- 0853 May, [facility] [place] [facility] [address] [id number] [place] [address]- 4472 May, [facility] [place] [facility] [address] [id number] [place] [address]- 7812 May, [facility] [place] [facility] [address] [id number] [place] [address]- 9584 Apr, [facility] [place] [facility] [address] [id number] [place] 7390 Apr, [facility] [place] [facility] [address] [id number] [place] [address]- 7918 Apr, [facility] [place] [facility] [address] [id number] [place] [address]- 0284 Apr, [facility] [place] [facility] [address] [id number] [place] [address]- 5435 Nov, [facility] [place] [facility] [address] [id number] [place] [address]- 8213 Oct, [facility] [place] [facility] [address] [id number] [place] [address]- 9228 Sep, [facility] [place] [facility] [address] [id number] [place] [address]- 2159 August, [facility] [place] [facility] [address] [id number] [place] [address]- 9668 Jul, [facility] [place] [facility] [address] [id number] [place] [address]- 4647 Jun, [facility] [place] [facility] [address] [id number] [place] [address]- 0433 Jun, [facility] [place] [facility] [address] [id number] [place] [address]- 2052 May, [facility] [place] [facility] [address] [id number] [place] [address]- 9265 Mar, [facility] [place] [facility] [address] [id number] [place] [address]- 6162 Feb, [facility] [place] [facility] [address] [id number] [place] [address]- 9857 Feb, [facility] [place] [facility] [address] [id number] [address]- 8511 Jan, [facility] [place] [facility] [address] [id number] [place] [address]- 3987 Jan, [facility] [place] [facility] [address] [id number] [place] [address]- 8176 Dec, [facility] [place] [facility] [address] [id number] [place] [address]- 2546 Nov, [facility] [place] [facility] [address] [address] 2546 Oct, [facility] [address] [address] 2546 August, [facility] [address] [address]- 2546 August, [facility] [address] [address]- 2546 August, [facility] [id number] [address]- 2546 May, [facility] [address] [place] [address] 11889- 6096 Apr, [facility] [id number] [address]- 2546 Nov, [facility] [address] [address]- 2546 August, [facility] [address] [address]- 2546 August, [facility] [address] [address]- 7466 Dec, [facility] [address] [address] 2546 August, [facility] [address] [address]- 2546 Mar, [facility] [address] [address]- 2546 Feb, [facility] [address] [address] 2546 Jan, [facility] [address] [address]- 2546 Sep, IMMUNIZATIONS No Known Immunizations SOCIAL HISTORY Never Assessed REASON FOR VISIT Lab (walk-in) PLAN OF CARE VITAL SIGNS MEDICATIONS No Known Medications RESULTS No Results PROCEDURES Procedure Date Ordered Result Body Site LIPID PANEL Mar 27, 2017 COMPREHEN METABOLIC PANEL Mar 27, 2017 VENIPUNCT, ROUTINE* Mar 27, 2017 COMPLETE CBC W/AUTO DIFF WBC Mar 27, 2017 INSTRUCTIONS MEDICATIONS ADMINISTERED No Known Medications MEDICAL (GENERAL) HISTORY Type Description Date Medical History Essential hypertension, benign Medical History Post cholecystectomy Medical History Obesity Surgical History section x 2 Surgical History breast biopsy Surgical History cholecystectomy Hospitalization History Section x 2
--- OUTSIDE RECORDS SUMMARY | 2018-03-18 06:03 | XMS REPORT ---
Author Author TYRONE SHIRLEY [facility] eClinicalWorks Address Unknown Phone Unavailable Care Team Providers Care Glassware Verifier Name Role Phone TYRONE SHIRLEY CP Unavailable [...] Instructions Start Date End Date Status Dosage Ortho Tri-Cyclen (28) [facility] [address]-29 0.18/0.215/0.25 MG-35 MCG Orally Once a day 1 tablet Results No Known Results Summary Purpose eClinicalWorks Submission
--- OUTSIDE RECORDS SUMMARY | 2018-03-18 06:03 | XMS REPORT ---
Author Author LUIS CARLOS MCCARTNEY e[employer] Address Unknown Phone Unavailable Care Team Providers Care Tail End Rider Name Role Phone LUIS CARLOS MCCARTNEY Unavailable Allergies No Known Allergies Problems Problem Type Condition Code Onset Dates Condition Status Problem Essential hypertension I10 Active Problem Rosacea L71.9 Active Problem Insomnia G47.00 Active Assessment Essential hypertension I10 Active Assessment Vitamin B12 deficiency E53.8 Active Problem Hyperlipidemia E78.5 Active Problem Prediabetes R73.09 Active Medications Medication Code System Code Instructions Start Date End Date Status Dosage Cyanocobalamin [facility] [address]-86 1000 MCG/ML Injection once monthly FebMar 26, 2016 1 ml Cholecalciferol [facility] [address] 33683 UNIT Orally once weekly for 12 weeks Feb 25, 2016 1 tablet Cholecalciferol [facility] [address]-63 2000 UNIT Orally Once a day start after 50 ,o000 rx Feb 25, 2016 Mar 26, 2016 1 capsule Results No Known Results Summary Purpose eClinicalWorks Submission
--- OUTSIDE RECORDS SUMMARY | 2018-03-18 06:03 | XMS REPORT ---
Author Author LUIS CARLOS MCCARTNEY [facility] eClinicalWorks Address Unknown Phone Unavailable Care Team Providers Care Director Insurance Name Role Phone LUIS CARLOS MCCARTNEY Unavailable Allergies No Known Allergies Problems Problem Type Condition Code Onset Dates Condition Status Problem Essential hypertension I10 Active Problem Rosacea L71.9 Active Problem Insomnia G47.00 Active Problem Hyperlipidemia E78.5 Active Problem Prediabetes R73.09 Active Medications No Known Medications Results No Known Results Summary Purpose eClinicalWorks Submission
--- OUTSIDE RECORDS SUMMARY | 2018-03-18 06:04 | XMS REPORT ---
Author Author LUIS CARLOS MCCARTNEY [facility] Address [address] [place] [address] Care Team Providers Care Nurse Practitioner Physician Assistant Name Role Phone LUIS CARLOS MCCARTNEY Unavailable PROBLEMS Type Condition ICD9-CM Code YFX99-CT Code Onset Dates Condition Status SNOMED Code Problem Prediabetes R73.09 Active 4455846 Problem Hyperlipidemia E78.5 Active 79955797 Problem Essential hypertension I10 Active 73804216 Problem Insomnia G47.00 Active 602168763 Problem Vitamin D deficiency E55.9 Active 19601741 Problem Vitamin B12 deficiency E53.8 Active 585015385 Problem Abnormality of right breast on screening mammogram R92.8 Active 655946825 Problem Rosacea L71.9 Active 248463285 Problem Reactive depression F32.9 Active 78239640 Problem Grief F43.20 Active 23022446 ALLERGIES Substance Reaction Event Type Date Status Flexeril Unknown Drug Allergy Jun, Active SOCIAL HISTORY Never Assessed PLAN OF CARE Activity Details Follow Up 4 Weeks Reason:Depression VITAL SIGNS Height 61 in 2016-06-04 Weight 289.3 lbs 2016-06-04 Temperature 98.3 degrees Fahrenheit 2016-06-04 Heart Rate 82 bpm 2016-06-04 Respiratory Rate 20 2016-06-04 BMI 54.66 kg/m2 2016-06-04 Blood pressure systolic 112 mmHg 2016-06-04 Blood pressure diastolic 78 mmHg 2016-06-04 MEDICATIONS Medication Instructions Dosage Frequency Start Date End Date Duration Status Ortho-Cyclen (28) 0.25-35 MG-MCG Orally Once a day 1 tablet 24h 28 Active Ibuprofen 800 MG Orally Three times a day as needed 1 tablet August, 90 days Active Lopressor 50 MG Orally Twice a day 1 tablet with food 12h 90 days Active Vitamin D 2000 UNIT Orally Once a day 1 tablet 24h Jun, Jun, 30 day(s) Active Sertraline HCl 25 MG Orally Once a day 1 tablet 24h Jun, 30 day (s) Active RESULTS No Results PROCEDURES Procedure Date Ordered Result Body Site B12, VITAMIN (UP TO 1000 MCG) June 04, 2016 THER/PROPH/DIAG INJ, SC/IM June 04, 2016 IMMUNIZATIONS Vaccine Route Administration Date Status B12, VITAMIN (UP TO 1000 MCG) IM Intramuscular June 04, 2016 Administered MEDICAL (GENERAL) HISTORY Type Description Date Medical History Essential hypertension, benign Medical History Post cholecystectomy Medical History Obesity Surgical History section x 2 Surgical History breast biopsy Surgical History cholecystectomy Hospitalization History Section x 2
--- OUTSIDE RECORDS SUMMARY | 2018-03-18 06:04 | XMS REPORT ---
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 Role Phone LUIS CARLOS MCCARTNEY Unavailable PROBLEMS Type Condition ICD9-CM Code OFA23-ES Code Onset Dates Condition Status SNOMED Code Problem Rosacea L71.9 Active 675524114 Problem Grief F43.20 Active 76486420 Problem Abnormality of right breast on screening mammogram R92.8 Active 642946234 Problem Insomnia G47.00 Active 946036607 Problem Prediabetes R73.09 Active 5270381 Problem Essential hypertension I10 Active 56019069 Problem Hyperlipidemia E78.5 Active 77855914 Problem Other elevated white blood cell (WBC) count D72.828 Active 871449841 Problem BMI 50.0-59.9, adult Z68.43 Active 239689765 Problem Vitamin D deficiency E55.9 Active 05400498 Problem Reactive depression F32.9 Active 33945264 Problem Dysmenorrhea N94.6 Active 044116638 Problem Vitamin B12 deficiency E53.8 Active 064202811 ALLERGIES No Information ENCOUNTERS Encounter Location Date Diagnosis [facility] [address] [facility] [id number] [place] [address] [id number] 17 Jul, 2017 Dental examination Z01.20 and Dental caries K02.9 [facility] [id number] [place] [address] 75174- 6816 14 May, 2017 Well woman exam Z01.419 ; Screening for breast cancer Z12.39 and BMI 50.0-59.9, adult Z68.43 [facility] [id number] [place] [address] 78840- 4542 Apr, [facility] [id number] [place] [address] 31599- 5502 Mar, Other elevated white blood cell (WBC) count D72.828 [place] [address] [place] [id number] [place] [address] 39545- 6277 Mar, Other elevated white blood cell (WBC) count D72.828 [place] [address] [place] [id number] [place] [address] 55660- 2609 Mar, Essential hypertension I10 [place] [address] 89211- 8420 Feb, Acute non-recurrent frontal sinusitis J01.10 ; Cough R05 ; Essential hypertension I10 ; Dysmenorrhea N94.6 and BMI 50.0-59.9, adult Z68.43 [place] [address] 15242- 6180 Dec, Pain in right leg M79.604 [place] [address] 92976- 0318 Oct, [place] [address] 07932- 2252 Sep, Pain in right leg M79.604 [place] [address] [place] [id number] [place] [address] 83352- 5301 August, Essential hypertension I10 [facility] [place] [id number] [place] [address] 54177 -1390 Jul, Impacted cerumen of right ear H61.21 [facility] [place] [address] [place] [id number] [place] [address] 89906 -0895 Jul, Impacted cerumen of right ear H61.21 [place] [address] [place] [id number] [place] [address] 69495- 1876 Jun, Vitamin B12 deficiency E53.8 ; Vitamin D deficiency E55.9 and Reactive depression F32.9 [place] [id number] [place] [address] 08494- 3910 Apr, [place] [id number] [place] [address] 77201- 4403 Apr, Grief F43.20 [place] [address] [place] [id number] [place] [address] 75170- 0025 13 Mar, 2016 Abnormality of right breast on screening mammogram R92.8 and Screening for breast cancer Z12.39 [place] [address] 46729- 8366 07 Mar, 2016 Well woman exam Z01.419 ; Pelvic pain R10.2 ; Abnormality of right breast on screening mammogram R92.8 and Screening for breast cancer Z12.39 [place] [address] [place] [id number] [place] [address] 67225- 2358 Feb, [place] [address] [place] [id number] [place] [address] 09522- 4758 Feb, Vitamin B12 deficiency E53.8 [place] [address] [place] [id number] [place] [address] 86943- 5600 Feb, Vitamin B12 deficiency E53.8 [place] [address] [place] [id number] [place] [address] 77991- 6388 Feb, Essential hypertension I10 and Vitamin B12 deficiency E53.8 [place] [address] [place] [id number] [place] [address] 08032- 6083 16 Feb, 2016 Pain in right leg M79.604 ; Pain of left leg M79.605 ; Prediabetes R73.09 ; Hyperlipidemia E78.5 ; Essential hypertension I10 and Cramp of both lower extremities R25.2 [place] [address] [place] [id number] [place] [address] 55318- 1370 Feb, [place] [address] 31426- 8592 Sep, Dysuria R30.0 and Acute cystitis with hematuria N30.01 [place] [address] [place] [id number] [place] [address] 85842- 6494 Jul, Essential hypertension I10 and Prediabetes R73.09 [place] [id number] [place] [address] 21453- 4147 Apr, Acute upper respiratory infection, unspecified J06.9 and Other viral agents as the cause of diseases classified elsewhere B97.89 [place] [address] [place] [id number] [place] [address] 13805- 5518 Apr, [place] [address] 164157- 7147 Mar, Essential hypertension, benign 401.1 and Hyperlipidemia 272.[address] 50917- 4111 Mar, [place] [id number] [place] [address] 81074- 0318 Feb, [address] 08004- 7014 Feb, [place] [id number] [place] [address] 96464- 7900 Feb, History of abnormal mammogram Z87.898 [place] [id number] [place] [address] 62618- 4910 Feb, Screening breast examination Z12.39 and History of abnormal mammogram Z87.898 [place] [id number] [place] [address] 79002- 8963 Jan, [place] [id number] [place] [address] 16437- 8898 Jan, [place] [id number] [place] [address] 38537- 4296 Jan, Encounter for immunization Z23 [place] [address] [place] [id number] [place] [address] 04765- 0076 Jan, [place] [id number] [place] [address] 36254- 1663 Nov, Essential hypertension, benign 401.1 ; Hyperlipidemia 272.4 and Severe menstrual cramps 625.3 [facility] [address] [place] [id number] [place] [address] 09754- 7370 Sep, [facility] [address] [place] [id number] [place] [address] 63747- 7730 Sep, Intractable left heel pain 729.5 [facility] [address] [place] [id number] [place] [address] 61676- 1669 Sep, Unspecified breast screening V76.10 [facility] [address] [place] [id number] [place] [address] 75563- 0749 August, Conjunctivitis, left eye 372.30 [facility] [address] [place] [id number] [place] [address] 08852- 9847 Jul, [facility] [address] [place] [id number] [place] [address] 26351- 9621 Jul, [facility] [address] [place] [id number] [place] [address] 76406- 9786 May, [facility] [address] [place] [id number] [place] [address] 94909- 1201 May, [facility] [address] [place] [id number] [place] [address] 63146- 7397 Apr, [facility] [address] [place] [id number] [place] [address] 03380- 8219 Apr, [facility] [address] [place] [id number] [place] [address] 56250- 6640 Apr, [facility] [address] [place] [id number] [place] [address] 23732- 5607 Apr, [facility] [address] [place] [id number] [place] [address] 30782- 6222 Apr, [facility] [address] [address]- 0938 Apr, [facility] [place] [facility] [address] [id number] [place] [address]- 9202 Apr, [facility] [place] [facility] [address] [id number] [place] [address]- 4240 Apr, [facility] [place] [facility] [address] [id number] [place] [address]- 3714 Apr, [facility] [place] [facility] [address] [id number] [place] [address]- 8122 Feb, [facility] [place] [facility] [address] [id number] [place] [address]- 0216 Feb, [facility] [place] [facility] [address] [id number] [place] [address]- 5126 Feb, [facility] [place] [facility] [address] [id number] [place] [address]- 8550 Feb, [facility] [place] [facility] [address] [id number] [place] [address]- 6269 Feb, [facility] [place] [facility] [address] [id number] [place] [address]- 9218 Feb, [facility] [place] [facility] [address] [id number] [place] [address]- 8981 Jan, [facility] [place] [facility] [address] [id number] [place] [address]- 0759 Jan, [facility] [place] [facility] [address] [id number] [place] [address]- 6631 Jan, [facility] [place] [facility] [address] [id number] [place] [address]- 4172 Jan, [facility] [place] [facility] [address] [id number] [place] [address]- 7796 Jan, [facility] [place] [facility] [address] [id number] [place] [address]- 9732 14 Jan, 2014 [facility] [place] [facility] [address] [id number] [place] [address]- 8563 13 Jan, 2014 [facility] [place] [facility] [address] [id number] [place] [address]- 1413 13 Jan, 2014 [facility] [place] [facility] [address] [id number] [place] [address]- 2828 10 Jan, 2014 [facility] [place] [facility] [address] [id number] [place] [address]- 4671 Jan, [facility] [place] [facility] [address] [id number] [place] [address]- 4805 Jan, [facility] [place] [facility] [address] [id number] [place] [address]- 7181 Jan, [facility] [place] [facility] [address] [id number] [place] [address]- 7119 25 Dec, 2013 [facility] [place] [facility] [address] [id number] [place] [address]- 3179 25 Dec, 2013 [facility] [place] [facility] [address] [id number], [place] [address]- 4981 19 Dec, 2013 [facility] [place] [facility] [address] [id number] [place] [address]- 7574 19 Dec, 2013 [facility] [place] [facility] [address] [id number] [place] [address]- 4814 17 Dec, 2013 [facility] [place] [facility] [address] [id number], [place] [address]- 1539 17 Dec, 2013 [facility] [place] [facility] [address] [id number], [place] [address]- 8843 Dec, 2013 [facility] [place] [facility] [address] [id number] [place] [address]- 0600 Dec, [facility] [place] [facility] [address] [id number], [place] [address]- 3347 Nov, [facility] [place] [facility] [address] [id number] [place] [address]- 3266 Nov, [facility] [place] [facility] [address] [id number] [place] [address]- 5712 Oct, [facility] [place] [facility] [address] [id number] [place] [address]- 9176 Oct, [facility] [place] [facility] [address] [id number] [place] [address]- 0240 Jul, [facility] [place] [facility] [address] [id number] [place] [address]- 5385 Jul, [facility] [place] [facility] [address] [id number] [place] [address]- 8195 Jun, [facility] [place] [facility] [address] [id number] [place] [address]- 0650 Jun, [facility] [place] [facility] [address] [id number] [place] [address]- 8569 Jun, [facility] [place] [facility] [address] [id number] [place] [address]- 7980 Jun, [facility] [place] [facility] [address] [id number] [place] [address]- 0718 May, [facility] [place] [facility] [address] [id number] [place] [address]- 6841 May, [facility] [place] [facility] [address] [id number] [place] [address]- 9055 May, [facility] [place] [facility] [address] [id number] [place] [address]- 7582 May, [facility] [place] [facility] [address] [id number] [place] [address]- 1469 Apr, [facility] [place] [facility] [address] [id number] [place] 5319 Apr, [facility] [place] [facility] [address] [id number] [place] [address]- 5798 Apr, [facility] [place] [facility] [address] [id number] [place] [address]- 8032 Apr, [facility] [place] [facility] [address] [id number] [place] [address]- 0570 Nov, [facility] [place] [facility] [address] [id number] [place] [address]- 0713 Oct, [facility] [place] [facility] [address] [id number] [place] [address]- 8173 Sep, [facility] [place] [facility] [address] [id number] [place] [address]- 9147 August, [facility] [place] [facility] [address] [id number] [place] [address]- 9497 Jul, [facility] [place] [facility] [address] [id number] [place] [address]- 4592 Jun, [facility] [place] [facility] [address] [id number] [place] [address]- 1587 Jun, [facility] [place] [facility] [address] [id number] [place] [address]- 5065 May, [facility] [place] [facility] [address] [id number] [place] [address]- 5253 Mar, [facility] [place] [facility] [address] [id number] [place] [address]- 3612 Feb, [facility] [place] [facility] [address] [id number] [place] [address]- 2087 Feb, [facility] [place] [facility] [address] [id number], [place] [address]- 1590 Jan, [facility] [place] [facility] [address] [id number] [place] [address]- 9753 Jan, [facility] [place] [facility] [address] [id number] [place] [address]- 4986 Dec, [facility] [place] [facility] [address] [id number] [place] [address]- 2546 Nov, [facility] [place] [facility] [address], [place] [address] 2546 Oct, [facility] [address] [place] [address] 2546 August, [facility] [address] [place] [address]- 2546 August, [facility] [address] [place] [address]- 2546 August, [facility] [address] [place] [address]- 2546 May, [facility] [id number] [place] [address] 13462- 8646 Apr, [facility] [address], [place] [address]- 2546 Nov, [facility] [id number] [place] [address] 83112- 2546 August, [facility] [address] [place] [address]- 2546 August, [facility] [address], [place] [address]- 7366 Dec, [facility] [address] [place] [address] 2546 August, [facility] [address] [place] [address]- 2546 Mar, [facility] [address] [place] [address]- 2546 Feb, [facility] [address] [place] [address]- 2546 Jan, [facility] [address] [place] [address]- 2546 Sep, IMMUNIZATIONS No Known Immunizations SOCIAL HISTORY Never Assessed REASON FOR VISIT Med Refill x1---ADaviedRN PLAN OF CARE VITAL SIGNS MEDICATIONS Medication Instructions Dosage Frequency Start Date End Date Duration Status Ibuprofen 800 MG Orally Three times a day as needed 1 tablet Jan, 30 days Active Lopressor 50 mg Orally Twice a day 1 tablet with food 12h 30 Active RESULTS No Results PROCEDURES No Known procedures INSTRUCTIONS MEDICATIONS ADMINISTERED No Known Medications MEDICAL (GENERAL) HISTORY Type Description Date Medical History Essential hypertension, benign Medical History Post cholecystectomy Medical History Obesity Surgical History section x 2 Surgical History breast biopsy Surgical History cholecystectomy Hospitalization History Section x 2
--- OUTSIDE RECORDS SUMMARY | 2018-03-18 06:04 | XMS REPORT ---
Author Author BIB LUIS CARLOS [facility] Address [address] [place] [address] Care Team Providers Care Automatic I Threading Machine Feeder Name Role Phone LUIS CARLOS MCCARTNEY Unavailable PROBLEMS Type Condition ICD9-CM Code JQB37-DK Code Onset Dates Condition Status SNOMED Code Problem Rosacea L71.9 Active 182158025 Problem Grief F43.20 Active 44952128 Problem Abnormality of right breast on screening mammogram R92.8 Active 875480395 Problem Insomnia G47.00 Active 197315060 Problem Prediabetes R73.09 Active 7430197 Problem Essential hypertension I10 Active 67128878 Problem Hyperlipidemia E78.5 Active 90670361 Problem Other elevated white blood cell (WBC) count D72.828 Active 916252481 Problem BMI 50.0-59.9, adult Z68.43 Active 549491062 Problem Vitamin D deficiency E55.9 Active 78168103 Problem Reactive depression F32.9 Active 24601522 Problem Dysmenorrhea N94.6 Active 555417855 Problem Vitamin B12 deficiency E53.8 Active 886468436 ALLERGIES No Information ENCOUNTERS Encounter Location Date Diagnosis [facility] [id number] [place] [address] [id number] 17 Jul, 2017 Dental examination Z01.20 and Dental caries K02.9 [facility] [id number] [place] [address] 61064- 4062 14 May, 2017 Well woman exam Z01.419 ; Screening for breast cancer Z12.39 and BMI 50.0-59.9, adult Z68.43 [facility] [address] [place] [address] 90772- 4977 Apr, [facility] [address] [place] [address] 83452- 5318 Mar, Other elevated white blood cell (WBC) count D72.828 [place] [id number] [place] [address] 02231- 5898 Mar, Other elevated white blood cell (WBC) count D72.828 [place] [id number] [place] [address] 96551- 1889 Mar, Essential hypertension I10 [place] [address] 6[address]28- 1109 Feb, Acute non-recurrent frontal sinusitis J01.10 ; Cough R05 ; Essential hypertension I10 ; Dysmenorrhea N94.6 and BMI 50.0-59.9, adult Z68.43 [place] [address] 8[address]79- 3056 Dec, Pain in right leg M79.604 [place] [address] 08694- 8967 Oct, [place] [address] 60685- 1736 Sep, Pain in right leg M79.604 [place] [id number] [place] [address] 61302- 6064 August, Essential hypertension I10 [facility] [id number] [place] [address] 86657 -3115 Jul, Impacted cerumen of right ear H61.21 [facility] [place] [id number] [place] [address] 15093 -6597 Jul, Impacted cerumen of right ear H61.21 [place] [id number] [place] [address] 02635- 2333 Jun, Vitamin B12 deficiency E53.8 ; Vitamin D deficiency E55.9 and Reactive depression F32.9 [place] [id number] [place] [address] 45457- 3981 Apr, [place] [address] [place] [address] 70624- 4381 Apr, Grief F43.20 [place] [id number] [place] [address] 95858- 1964 13 Mar, 2016 Abnormality of right breast on screening mammogram R92.8 and Screening for breast cancer Z12.39 [place] [address] 80330- 2496 07 Mar, 2016 Well woman exam Z01.419 ; Pelvic pain R10.2 ; Abnormality of right breast on screening mammogram R92.8 and Screening for breast cancer Z12.39 [place] [id number] [place] [address] 65366- 1274 Feb, [place] [id number] [place] [address] 30958- 6754 Feb, Vitamin B12 deficiency E53.8 [place] [id number] [place] [address] 32605- 5543 Feb, Vitamin B12 deficiency E53.8 [place] [id number] [place] [address] 18883- 8341 Feb, Essential hypertension I10 and Vitamin B12 deficiency E53.8 [place] [id number] [place] [address] 77355- 5774 16 Feb, 2016 Pain in right leg M79.604 ; Pain of left leg M79.605 ; Prediabetes R73.09 ; Hyperlipidemia E78.5 ; Essential hypertension I10 and Cramp of both lower extremities R25.2 [place] [id number] [place] [address] 66827- 9534 Feb, [place] [address] 31988- 2942 Sep, Dysuria R30.0 and Acute cystitis with hematuria N30.01 [place] [id number] [place] [address] 65130- 8541 Jul, Essential hypertension I10 and Prediabetes R73.09 [place] [id number] [place] [address] 75384- 4870 Apr, Acute upper respiratory infection, unspecified J06.9 and Other viral agents as the cause of diseases classified elsewhere B97.89 [place] [id number] [place] [address] 86036- 4799 Apr, [place] [address] 668928- 8439 Mar, Essential hypertension, benign 401.1 and Hyperlipidemia 272.[address] 28373- 0972 Mar, [place] [id number] [place] [address] 38871- 3989 Feb, [address] 64477- 8954 Feb, [place] [id number] [place] [address] 28136- 8658 Feb, History of abnormal mammogram Z87.898 [place] [id number] [place] [address] 74220- 8944 Feb, Screening breast examination Z12.39 and History of abnormal mammogram Z87.898 [place] [id number] [place] [address] 69623- 2883 Jan, [place] [id number] [place] [address] 67663- 4070 Jan, [place] [id number] [place] [address] 10521- 9418 Jan, Encounter for immunization Z23 [place] [id number] [place] [address] 43668- 8265 Jan, [place] [id number] [place] [address] 06036- 1106 Nov, Essential hypertension, benign 401.1 ; Hyperlipidemia 272.4 and Severe menstrual cramps 625.3 [facility] [id number] [place] [address] 81591- 7908 Sep, [facility] [id number] [place] [address] 26702- 3312 Sep, Intractable left heel pain 729.5 [facility] [id number] [place] [address] 89199- 2854 Sep, Unspecified breast screening V76.10 [facility] [id number] [place] [address] 77847- 3846 August, Conjunctivitis, left eye 372.30 [facility] [id number] [place] [address] 77285- 6546 Jul, [facility] [id number] [place] [address] 76333- 9948 Jul, [facility] [id number] [place] [address] 96302- 0564 May, [facility] [id number] [place] [address] 27754- 4931 May, [facility] [id number] [place] [address] 78706- 1790 Apr, [facility] [id number] [place] [address] 49355- 5486 Apr, [facility] [id number] [place] [address] 76817- 5957 Apr, [facility] [id number] [place] [address] 71690- 4733 Apr, [facility] [id number] [place] [address] 44371- 9412 Apr, [facility] [address] [address]- 6214 Apr, [facility] [place] [facility] [address] [id number] [place] [address]- 5693 Apr, [facility] [place] [facility] [address] [id number] [place] [address]- 9926 Apr, [facility] [place] [facility] [address] [id number] [place] [address]- 8679 Apr, [facility] [place] [facility] [address] [id number] [place] [address]- 1274 Feb, [facility] [place] [facility] [address] [id number] [place] [address]- 9252 Feb, [facility] [place] [facility] [address] [id number] [place] [address]- 4766 Feb, [facility] [place] [facility] [address] [id number] [place] [address]- 1454 Feb, [facility] [place] [facility] [address] [id number] [place] [address]- 6262 Feb, [facility] [place] [facility] [address] [id number] [place] [address]- 8887 Feb, [facility] [place] [facility] [address] [id number] [place] [address]- 2574 Jan, [facility] [place] [facility] [address] [id number] [place] [address]- 7398 Jan, [facility] [place] [facility] [address] [id number] [place] [address]- 4069 Jan, [facility] [place] [facility] [address] [id number] [place] [address]- 8127 Jan, [facility] [place] [facility] [address] [id number] [place] [address]- 1684 Jan, [facility] [place] [facility] [address] [id number] [place] [address]- 5894 14 Jan, 2014 [facility] [place] [facility] [address] [id number] [place] [address]- 6452 13 Jan, 2014 [facility] [place] [facility] [address] [id number] [place] [address]- 0809 13 Jan, 2014 [facility] [place] [facility] [address] [id number] [place] [address]- 3882 10 Jan, 2014 [facility] [place] [facility] [address] [id number] [place] [address]- 7874 Jan, [facility] [place] [facility] [address] [id number] [place] [address]- 7475 Jan, [facility] [place] [facility] [address] [id number] [place] [address]- 0359 Jan, [facility] [place] [facility] [address] [id number] [place] [address]- 6432 25 Dec, 2013 [facility] [place] [facility] [address] [id number] [place] [address]- 7410 25 Dec, 2013 [facility] [place] [facility] [address] [id number], [place] [address]- 8186 19 Dec, 2013 [facility] [place] [facility] [address] [id number] [place] [address]- 5109 19 Dec, 2013 [facility] [place] [facility] [address] [id number] [place] [address]- 6610 17 Dec, 2013 [facility] [place] [facility] [address] [id number], [place] [address]- 4063 17 Dec, 2013 [facility] [place] [facility] [address] [id number], [place] [address]- 5466 Dec, 2013 [facility] [place] [facility] [address] [id number] [place] [address]- 5650 Dec, [facility] [place] [facility] [address] [id number], [place] [address]- 4466 Nov, [facility] [place] [facility] [address] [id number] [place] [address]- 4935 Nov, [facility] [place] [facility] [address] [id number] [place] [address]- 3253 Oct, [facility] [place] [facility] [address] [id number] [place] [address]- 8921 Oct, [facility] [place] [facility] [address] [id number] [place] [address]- 5798 Jul, [facility] [place] [facility] [address] [id number] [place] [address]- 2102 Jul, [facility] [place] [facility] [address] [id number] [place] [address]- 1701 Jun, [facility] [place] [facility] [address] [id number] [place] [address]- 9876 Jun, [facility] [place] [facility] [address] [id number] [place] [address]- 0497 Jun, [facility] [place] [facility] [address] [id number] [place] [address]- 2092 Jun, [facility] [place] [facility] [address] [id number] [place] [address]- 0955 May, [facility] [place] [facility] [address] [id number] [place] [address]- 5771 May, [facility] [place] [facility] [address] [id number] [place] [address]- 0967 May, [facility] [place] [facility] [address] [id number] [place] [address]- 9636 May, [facility] [place] [facility] [address] [id number] [place] [address]- 2951 Apr, [facility] [place] [facility] [address] [id number] [place] 0082 Apr, [facility] [place] [facility] [address] [id number] [place] [address]- 7003 Apr, [facility] [place] [facility] [address] [id number] [place] [address]- 7785 Apr, [facility] [place] [facility] [address] [id number] [place] [address]- 7664 Nov, [facility] [place] [facility] [address] [id number] [place] [address]- 2761 Oct, [facility] [place] [facility] [address] [id number] [place] [address]- 9849 Sep, [facility] [place] [facility] [address] [id number] [place] [address]- 8181 August, [facility] [place] [facility] [address] [id number] [place] [address]- 6796 Jul, [facility] [place] [facility] [address] [id number] [place] [address]- 2129 Jun, [facility] [place] [facility] [address] [id number] [place] [address]- 5302 Jun, [facility] [place] [facility] [address] [id number] [place] [address]- 2099 May, [facility] [place] [facility] [address] [id number] [place] [address]- 7936 Mar, [facility] [place] [facility] [address] [id number] [place] [address]- 2024 Feb, [facility] [place] [facility] [address] [id number] [place] [address]- 1922 Feb, [facility] [place] [facility] [address] [id number], [place] [address]- 8811 Jan, [facility] [place] [facility] [address] [id number] [place] [address]- 0597 Jan, [facility] [place] [facility] [address] [id number] [place] [address]- 5556 Dec, [facility] [place] [facility] [address] [id number] [place] [address]- 2546 Nov, [facility] [place] [facility] [address] [address]- 2546 Oct, [facility] [address] [address] 2546 August, [facility] [address] [address]- 2546 August, [facility] [address] [address]- 2546 August, [facility] [address] [address]- 2546 May, [facility] [address] [place] [address] 24947- 2546 Apr, [facility] [address] [address]- 2546 Nov, [facility] [address] [address]- 2546 August, [facility] [address] [address]- 2546 August, [facility] [address] [address]- 0566 Dec, [facility] [address] [address]- 2546 August, [facility] [address] [address]- 2546 Mar, [facility] [address] [address]- 2546 Feb, [facility] [address] [address]- 2546 Jan, [facility] [address] [address]- 2546 Sep, IMMUNIZATIONS No Known Immunizations SOCIAL HISTORY Never Assessed REASON FOR VISIT Future lab order PLAN OF CARE VITAL SIGNS MEDICATIONS No [...]
--- OUTSIDE RECORDS SUMMARY | 2018-03-18 06:04 | XMS REPORT ---
Author Author LUIS CARLOS MCCARTNEY [employer] Address Unknown Phone Unavailable Care Team Providers Care Glass Tube Bender Name Role Phone LUIS CARLOS MCCARTNEY CP Unavailable Allergies, Adverse Reactions, Alerts Substance Reaction Event Type Flexeril Info Not Available Drug Allergy Problems Problem Type Condition Code Onset Dates Condition Status Assessment Essential hypertension I10 Active Assessment Prediabetes R73.09 Active Assessment Hyperlipidemia E78.5 Active Assessment Cramp of both lower extremities R25.2 Active Problem Essential hypertension I10 Active Problem Rosacea L71.9 Active Problem Insomnia G47.00 Active Assessment Pain in right leg M79.604 Active Assessment Pain of left leg M79.605 Active Problem Hyperlipidemia E78.5 Active Problem Prediabetes R73.09 Active Medications Medication Code System Code Instructions Start Date End Date Status Dosage Lopressor [facility] [address]-02 50 MG Orally Twice a day 1 tablet with food Ortho-Cyclen (28) [facility] 21921086432 0.25-35 MG-MCG Orally Once a day [address] [facility] 18501185038 800 MG Orally Three times a day as needed August 18, 2016 1 tablet Procedures Procedure Coding System Code Date LIPID PANEL CPT-4 24438 Feb 20, 2016 COMPLETE CBC W/AUTO DIFF WBC CPT-4 54345 Feb 20, 2016 COMPREHEN METABOLIC PANEL CPT-4 83661 Feb 20, 2016 VENIPUNCT, ROUTINE* CPT-4 79431 Feb 20, 2016 Office Visit, Est Pt., Level 3 CPT-4 42709 Feb 20, 2016 VITAMIN B-12 CPT-4 93316 Feb 20, 2016 ASSAY OF MAGNESIUM CPT-4 06532 Feb 20, 2016 ASSAY OF VITAMIN D CPT-4 06925 Feb 20, 2016 BLOOD FOLIC ACID SERUM CPT-4 04079 Feb 20, 2016 Vital Signs Date/Time: Feb 20, 2016 Cardiac Monitoring Heart Rate 88 bpm Weight 287.1 lbs Height 61 in BMI 54.24 Index Blood Pressure Diastolic 78 mmHg Blood Pressure Systolic 142 mmHg Results Name Result Date Reference Range Unit Abnormality Flag MAGNESIUM, SERUM ----Magnesium, Serum 1.8 08200410 1.6-2.3 mg/dL FOLATE (FOLIC ACID) ----Folate (Folic Acid), Serum 5.5 74578905 >3.0 ng/mL ROUTINE VENIPUNCTURE VITAMIN B12 ----Vitamin B12 180 43740686 211-946 pg/mL L Ultrasound : Venous Doppler, Bilateral LIPID PANEL ----LDL Cholesterol Calc 111 59693941 0-99 mg/dL H ----VLDL Cholesterol Silas 30 37435476 5-40 mg/dL ----HDL Cholesterol 51 61697076 >39 mg/dL ----Triglycerides 149 97008378 0-149 mg/dL ----Cholesterol, Total 192 28916850 100-199 mg/dL CMP ----Glucose, Serum 96 16274161 65-99 mg/dL ----BUN 12 59004519 6-24 mg/dL ----Creatinine, Serum 0.65 96502149 0.57-1.00 mg/dL ----Potassium, Serum 4.5 96186354 3.5-5.2 mmol/L ----Chloride, Serum 101 85967582 97-106 mmol/L ----ALT (SGPT) 29 33480846 0-32 IU/L ----AST (SGOT) 18 20160220 0-40 IU/L ----eGFR If NonAfricn Am 110 73590480 >59 mL/min/1.73 ----Alkaline Phosphatase, S 106 77855663 39-117 IU/L ----eGFR If Africn Am 127 75837421 >59 mL/min/1.73 ----Bilirubin, Total 0.3 18236157 0.0-1.2 mg/dL ----BUN/Creatinine Ratio 18 20160220 9-23 ----A/G Ratio 1.6 20160220 1.1-2.5 ----Sodium, Serum 140 27620112 136-144 mmol/L ----Carbon Dioxide, Total 23 12740991 18-29 mmol/L ----Calcium, Serum 9.3 28739228 8.7-10.2 mg/dL ----Protein, Total, Serum 6.8 90498107 6.0-8.5 g/dL ----Albumin, Serum 4.2 46357303 3.5-5.5 g/dL ----Globulin, Total 2.6 88978567 1.5-4.5 g/dL CBC ----RDW 14.2 37958099 12.3-15.4 % ----MCHC 33.4 37332958 31.5-35.7 g/dL ----MCH 29.3 38105598 26.6-33.0 pg ----MCV 88 35546931 79-97 fL ----Hematocrit 43.7 19792077 34.0-46.6 % ----Hemoglobin 14.6 53953768 11.1-15.9 g/dL ----Immature Granulocytes 0 11238988 % ----RBC 4.99 83406468 3.77-5.28 x10E6/uL ----WBC 11.1 09749322 3.4-10.8 x10E3/uL H ----Immature Grans (Abs) 0.0 08581416 0.0-0.1 x10E3/uL ----Eos (Absolute) 0.4 96863871 0.0-0.4 x10E3/uL ----Basos 1 08185660 % ----Baso (Absolute) 0.1 25365801 0.0-0.2 x10E3/uL ----Neutrophils (Absolute) 6.6 38739341 1.4-7.0 x10E3/uL ----Lymphs (Absolute) 3.5 23597385 0.7-3.1 x10E3/uL H ----Monocytes(Absolute) 0.6 58351299 0.1-0.9 x10E3/uL ----Neutrophils 59 85102170 % ----Lymphs 32 33546420 % ----Monocytes 5 03694997 % ----Eos 3 90649984 % ----Platelets 284 13188045 150-379 x10E3/uL VITAMIN D, 25-H ----Vitamin D, 25-Hydroxy 13.2 09508423 30.0-100.0 ng/mL L Summary Purpose eClinicalWorks Submission
--- OUTSIDE RECORDS SUMMARY | 2018-03-18 06:04 | XMS REPORT ---
Author Author LUIS CARLOS MCCARTNEY [employer] Address Unknown Phone Unavailable Care Team Providers Care Appliance Technician Name Role Phone LUIS ACRLOS MCCARTNEY Unavailable Allergies No Known Allergies Problems Problem Type Condition Code Onset Dates Condition Status Problem Essential hypertension I10 Active Problem Rosacea L71.9 Active Problem Insomnia G47.00 Active Problem Hyperlipidemia E78.5 Active Problem Prediabetes R73.09 Active Medications Medication Code System Code Instructions Start Date End Date Status Dosage Ortho-Cyclen (28) [facility] [id number] 0.25-35 MG-MCG Orally Once a day 1 tablet Results No Known Results Summary Purpose eClinicalWorks Submission
--- OUTSIDE RECORDS SUMMARY | 2018-03-18 06:04 | XMS REPORT ---
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
--- OUTSIDE RECORDS SUMMARY | 2018-03-18 06:04 | XMS REPORT ---
Author Author LUIS CARLOS MCCARTNEY [facility] Address [address] [place] [address] Care Team Providers Care Devops Solutions Architect Name Role Phone LUIS CARLOS MCCARTNEY Unavailable PROBLEMS Type Condition ICD9-CM Code WBM30-EZ Code Onset Dates Condition Status SNOMED Code Problem Prediabetes R73.09 Active 9313034 Problem Hyperlipidemia E78.5 Active 55957620 Problem Essential hypertension I10 Active 78516548 Problem Insomnia G47.00 Active 003905205 Problem Vitamin D deficiency E55.9 Active 30307111 Problem Vitamin B12 deficiency E53.8 Active 987976687 Problem Abnormality of right breast on screening mammogram R92.8 Active 828858152 Problem Rosacea L71.9 Active 340758695 Problem Reactive depression F32.9 Active 61178402 Problem Grief F43.20 Active 53477639 ALLERGIES No Information SOCIAL HISTORY Never Assessed PLAN OF CARE VITAL SIGNS MEDICATIONS Medication Instructions Dosage Frequency Start Date End Date Duration Status Lopressor 50 mg Orally Twice a day 1 tablet with food 12h 30 days Active RESULTS No Results PROCEDURES No Known procedures IMMUNIZATIONS No Known Immunizations MEDICAL (GENERAL) HISTORY Type Description Date Medical History Essential hypertension, benign Medical History Post cholecystectomy Medical History Obesity Surgical History section x 2 Surgical History breast biopsy Surgical History cholecystectomy Hospitalization History Section x 2
--- OUTSIDE RECORDS SUMMARY | 2018-03-18 06:05 | XMS REPORT ---
Author Author BIB LUIS CARLOS [facility] Address [address] [place] [address] Care Team Providers Care Immigration Consultant Name Role Phone LUIS CARLOS MCCARTNEY Unavailable PROBLEMS Type Condition ICD9-CM Code EKR42-MP Code Onset Dates Condition Status SNOMED Code Problem Rosacea L71.9 Active 678425533 Problem Grief F43.20 Active 27155244 Problem Abnormality of right breast on screening mammogram R92.8 Active 407952383 Problem Insomnia G47.00 Active 483416322 Problem Prediabetes R73.09 Active 1419725 Problem Essential hypertension I10 Active 26395273 Problem Hyperlipidemia E78.5 Active 15167020 Problem Other elevated white blood cell (WBC) count D72.828 Active 183753301 Problem BMI 50.0-59.9, adult Z68.43 Active 302206168 Problem Vitamin D deficiency E55.9 Active 52329202 Problem Reactive depression F32.9 Active 03782536 Problem Dysmenorrhea N94.6 Active 422038557 Problem Vitamin B12 deficiency E53.8 Active 976093511 ALLERGIES No Information ENCOUNTERS Encounter Location Date Diagnosis [facility] [id number] [place] [address] [id number] 17 Jul, 2017 Dental examination Z01.20 and Dental caries K02.9 [facility] [id number] [place] [address] 36020- 3515 14 May, 2017 Well woman exam Z01.419 ; Screening for breast cancer Z12.39 and BMI 50.0-59.9, adult Z68.43 [facility] [address] [place] [address] 82442- 0061 Apr, [facility] [address] [place] [address] 97241- 4061 Mar, Other elevated white blood cell (WBC) count D72.828 [facility] [id number] [place] [address] 76872- 6395 Mar, Other elevated white blood cell (WBC) count D72.828 [facility] [id number] [place] [address] 80859- 2280 Mar, Essential hypertension I10 [place] [address] 68455- 9223 Feb, Acute non-recurrent frontal sinusitis J01.10 ; Cough R05 ; Essential hypertension I10 ; Dysmenorrhea N94.6 and BMI 50.0-59.9, adult Z68.43 [place] [facility] [address] [address]25- 1511 Dec, Pain in right leg M79.604 [place] [address] 68260- 5849 Oct, [place] [address] 28772- 0700 Sep, Pain in right leg M79.604 [facility] [id number] [place] [address] 79934- 5631 August, Essential hypertension I10 [facility] [id number] [place] [address] 90896 -3262 Jul, Impacted cerumen of right ear H61.21 [facility] [id number] [place] [address] 48093 -6007 Jul, Impacted cerumen of right ear H61.21 [facility] [id number] [place] [address] 84430- 3243 Jun, Vitamin B12 deficiency E53.8 ; Vitamin D deficiency E55.9 and Reactive depression F32.9 [place] [address] [id number] [place] [address] 74481- 4828 Apr, [facility] [address] [place] [address] 11625- 1382 Apr, Grief F43.20 [facility] [id number] [place] [address] 22860- 2589 13 Mar, 2016 Abnormality of right breast on screening mammogram R92.8 and Screening for breast cancer Z12.39 [facility] [address] 06073- 1722 07 Mar, 2016 Well woman exam Z01.419 ; Pelvic pain R10.2 ; Abnormality of right breast on screening mammogram R92.8 and Screening for breast cancer Z12.39 [facility] [id number] [place] [address] 35979- 6076 Feb, [facility] [id number] [place] [address] 29648- 5813 Feb, Vitamin B12 deficiency E53.8 [facility] [id number] [place] [address] 00526- 0767 Feb, Vitamin B12 deficiency E53.8 [facility] [id number] [place] [address] 53657- 2253 Feb, Essential hypertension I10 and Vitamin B12 deficiency E53.8 [facility] [id number] [place] [address] 88418- 9537 16 Feb, 2016 Pain in right leg M79.604 ; Pain of left leg M79.605 ; Prediabetes R73.09 ; Hyperlipidemia E78.5 ; Essential hypertension I10 and Cramp of both lower extremities R25.2 [facility] [facility] [id number] [place] [address] 42989- 0358 Feb, [place] [address] 05013- 2594 Sep, Dysuria R30.0 and Acute cystitis with hematuria N30.01 [facility] [id number] [place] [address] 34606- 4489 Jul, Essential hypertension I10 and Prediabetes R73.09 [address] [id number] [place] [address] 06969- 2407 Apr, Acute upper respiratory infection, unspecified J06.9 and Other viral agents as the cause of diseases classified elsewhere B97.89 [facility] [id number] [place] [address] 15695- 0503 Apr, [facility] [address] 245349- 9440 Mar, Essential hypertension, benign 401.1 and Hyperlipidemia 272.[address] 40692- 2760 Mar, [place] [id number] [place] [address] 63171- 5355 Feb, [address] 15271- 7514 Feb, [place] [id number] [place] [address] 91045- 4379 Feb, History of abnormal mammogram Z87.898 [place] [id number] [place] [address] 29326- 4663 Feb, Screening breast examination Z12.39 and History of abnormal mammogram Z87.898 [address] [id number] [place] [address] 30311- 3465 Jan, [place] [id number] [place] [address] 50282- 7483 Jan, [address] [id number] [place] [address] 26282- 7802 Jan, Encounter for immunization Z23 [place] [id number] [place] [address] 80533- 2878 Jan, [place] [id number] [place] [address] 42461- 8208 Nov, Essential hypertension, benign 401.1 ; Hyperlipidemia 272.4 and Severe menstrual cramps 625.3 [facility] [id number] [place] [address] 45423- 1293 Sep, [facility] [id number] [place] [address] 65092- 0891 Sep, Intractable left heel pain 729.5 [facility] [id number] [place] [address] 50272- 2620 Sep, Unspecified breast screening V76.10 [facility] [id number] [place] [address] 26146- 8976 August, Conjunctivitis, left eye 372.30 [facility] [id number] [place] [address] 93021- 6650 Jul, [facility] [id number] [place] [address] 98764- 5533 Jul, [facility] [id number] [place] [address] 28657- 7423 May, [facility] [id number] [place] [address] 22220- 2734 May, [facility] [id number] [place] [address] 69873- 9208 Apr, [facility] [id number] [place] [address] 18502- 5786 Apr, [facility] [id number] [place] [address] 77279- 9089 Apr, [facility] [id number] [place] [address] 57604- 1855 Apr, [facility] [id number] [place] [address] 15969- 4289 Apr, [facility] [address] [address]- 7941 Apr, [facility] [place] [facility] [address] [id number] [place] [address]- 6171 Apr, [facility] [place] [facility] [address] [id number] [place] [address]- 7799 Apr, [facility] [place] [facility] [address] [id number] [place] [address]- 6099 Apr, [facility] [place] [facility] [address] [id number] [place] [address]- 5395 Feb, [facility] [place] [facility] [address] [id number] [place] [address]- 2911 Feb, [facility] [place] [facility] [address] [id number] [place] [address]- 1428 Feb, [facility] [place] [facility] [address] [id number] [place] [address]- 2561 Feb, [facility] [place] [facility] [address] [id number] [place] [address]- 5489 Feb, [facility] [place] [facility] [address] [id number] [place] [address]- 2142 Feb, [facility] [place] [facility] [address] [id number] [place] [address]- 2405 Jan, [facility] [place] [facility] [address] [id number] [place] [address]- 4989 Jan, [facility] [place] [facility] [address] [id number] [place] [address]- 2274 Jan, [facility] [place] [facility] [address] [id number] [place] [address]- 6345 Jan, [facility] [place] [facility] [address] [id number] [place] [address]- 0752 Jan, [facility] [place] [facility] [address] [id number] [place] [address]- 5012 14 Jan, 2014 [facility] [place] [facility] [address] [id number] [place] [address]- 3855 13 Jan, 2014 [facility] [place] [facility] [address] [id number] [place] [address]- 7769 13 Jan, 2014 [facility] [place] [facility] [address] [id number] [place] [address]- 2049 10 Jan, 2014 [facility] [place] [facility] [address] [id number] [place] [address]- 5017 Jan, [facility] [place] [facility] [address] [id number] [place] [address]- 2994 Jan, [facility] [place] [facility] [address] [id number] [place] [address]- 8582 Jan, [facility] [place] [facility] [address] [id number] [place] [address]- 6748 25 Dec, 2013 [facility] [place] [facility] [address] [id number] [place] [address]- 5612 25 Dec, 2013 [facility] [place] [facility] [address] [id number] [address]- 7919 19 Dec, 2013 [facility] [place] [facility] [address] [id number] [place] [address]- 6003 19 Dec, 2013 [facility] [place] [facility] [address] [id number] [place] [address]- 1656 17 Dec, 2013 [facility] [place] [facility] [address] [id number] [address]- 7300 17 Dec, 2013 [facility] [place] [facility] [address] [id number] [address]- 5193 Dec, 2013 [facility] [place] [facility] [address] [id number] [place] [address]- 5823 Dec, [facility] [place] [facility] [address] [id number] [address]- 7040 Nov, [facility] [place] [facility] [address] [id number] [place] [address]- 5757 Nov, [facility] [place] [facility] [address] [id number] [place] [address]- 0067 Oct, [facility] [place] [facility] [address] [id number] [place] [address]- 8406 Oct, [facility] [place] [facility] [address] [id number] [place] [address]- 7048 Jul, [facility] [place] [facility] [address] [id number] [place] [address]- 1278 Jul, [facility] [place] [facility] [address] [id number] [place] [address]- 0936 Jun, [facility] [place] [facility] [address] [id number] [place] [address]- 5623 Jun, [facility] [place] [facility] [address] [id number] [place] [address]- 0605 Jun, [facility] [place] [facility] [address] [id number] [place] [address]- 0199 Jun, [facility] [place] [facility] [address] [id number] [place] [address]- 0393 May, [facility] [place] [facility] [address] [id number] [place] [address]- 2555 May, [facility] [place] [facility] [address] [id number] [place] [address]- 6888 May, [facility] [place] [facility] [address] [id number] [place] [address]- 0769 May, [facility] [place] [facility] [address] [id number] [place] [address]- 1187 Apr, [facility] [place] [facility] [address] [id number] [place] 1298 Apr, [facility] [place] [facility] [address] [id number] [place] [address]- 6101 Apr, [facility] [place] [facility] [address] [id number] [place] [address]- 5837 Apr, [facility] [place] [facility] [address] [id number] [place] [address]- 3513 Nov, [facility] [place] [facility] [address] [id number] [place] [address]- 9740 Oct, [facility] [place] [facility] [address] [id number] [place] [address]- 3660 Sep, [facility] [place] [facility] [address] [id number] [place] [address]- 7061 August, [facility] [place] [facility] [address] [id number] [place] [address]- 4622 Jul, [facility] [place] [facility] [address] [id number] [place] [address]- 0985 Jun, [facility] [place] [facility] [address] [id number] [place] [address]- 6027 Jun, [facility] [place] [facility] [address] [id number] [place] [address]- 7999 May, [facility] [place] [facility] [address] [id number] [place] [address]- 7041 Mar, [facility] [place] [facility] [address] [id number] [place] [address]- 9595 Feb, [facility] [place] [facility] [address] [id number] [place] [address]- 7005 Feb, [facility] [place] [facility] [address] [id number] [address]- 6043 Jan, [facility] [place] [facility] [address] [id number] [place] [address]- 3832 Jan, [facility] [place] [facility] [address] [id number] [place] [address]- 1536 Dec, [facility] [place] [facility] [address] [id number] [place] [address]- 2546 Nov, [facility] [place] [facility] [address] [address] 2546 Oct, [facility] [address] [facility] [id number] [address] 2546 August, [facility] [id number] [address]- 2546 August, [facility] [address] [address]- 2546 August, [facility] [address] [facility] [id number] [address]- 2546 May, [facility] [address] [address]- 2966 Apr, [facility] [id number] [address]- 2546 Nov, [facility] [address] [address]- 2546 August, [facility] [address] [address]- 2546 August, [facility] [address] [address]- 2726 Dec, [facility] [address] [address] 2546 August, [facility] [address] [address]- 2546 Mar, [facility] [address] [address]- 2546 Feb, [facility] [address] [address] 2546 Jan, [facility] [address] [address]- 2546 Sep, IMMUNIZATIONS No Known Immunizations SOCIAL HISTORY Never Assessed REASON FOR VISIT Lab (walk-in) PLAN OF CARE VITAL SIGNS MEDICATIONS No Known Medications RESULTS No Results PROCEDURES Procedure Date Ordered Result Body Site BLOOD SMEAR INTERPRETATION Apr 02, 2017 COMPLETE CBC W/AUTO DIFF WBC Apr 02, 2017 VENIPUNCT, ROUTINE* Apr 02, 2017 INSTRUCTIONS MEDICATIONS ADMINISTERED No Known Medications MEDICAL (GENERAL) HISTORY Type Description Date Medical History Essential hypertension, benign Medical History Post cholecystectomy Medical History Obesity Surgical History section x 2 Surgical History breast biopsy Surgical History cholecystectomy Hospitalization History Section x 2
--- OUTSIDE RECORDS SUMMARY | 2018-03-18 06:05 | XMS REPORT ---
Author Author ZENA FINN [facility] Address [address] [place] [address] Care Team Providers Care Results Engineer Name Role Phone ZENA FINN Unavailable PROBLEMS Type Condition ICD9-CM Code BST15-IJ Code Onset Dates Condition Status SNOMED Code Problem Prediabetes R73.09 Active 1327149 Problem Hyperlipidemia E78.5 Active 09058862 Problem Essential hypertension I10 Active 61049674 Problem Insomnia G47.00 Active 192594408 Problem Vitamin D deficiency E55.9 Active 56084175 Problem Vitamin B12 deficiency E53.8 Active 099521873 Problem Abnormality of right breast on screening mammogram R92.8 Active 684624556 Problem Rosacea L71.9 Active 200978656 Problem Reactive depression F32.9 Active 63970530 Problem Grief F43.20 Active 45676856 ALLERGIES Substance Reaction Event Type Date Status Flexeril Unknown Drug Allergy Apr, Active SOCIAL HISTORY No smoking Hx information available PLAN OF CARE Activity Details Follow Up prn Reason: VITAL SIGNS Height 61 in 2016-04-21 Weight 289.1 lbs 2016-04-21 Temperature 98.4 degrees Fahrenheit 2016-04-21 Heart Rate 72 bpm 2016-04-21 Respiratory Rate 18 2016-04-21 BMI 54.62 kg/m2 2016-04-21 Blood pressure systolic 120 mmHg 2016-04-21 Blood pressure diastolic 84 mmHg 2016-04-21 MEDICATIONS Medication Instructions Dosage Frequency Start Date End Date Duration Status Ibuprofen 800 MG Orally Three times a day as needed 1 tablet August, 90 days Active Ortho-Cyclen (28) 0.25-35 MG-MCG Orally Once a day 1 tablet 24h 28 Active Cholecalciferol 45010 UNIT Orally once weekly for 12 weeks 1 tablet Feb, Active Ativan 0.5 MG Orally Once a day at bed time 1 tablet as needed Apr, 20 days Active Lopressor 50 MG Orally Twice a day 1 tablet with food 12h 90 days Active RESULTS No Results PROCEDURES Procedure Date Ordered Related Diagnosis Body Site Office Visit, Est Pt., Level 3 Apr 21, 2016 IMMUNIZATIONS No Known Immunizations
--- OUTSIDE RECORDS SUMMARY | 2018-03-18 06:05 | XMS REPORT ---
Author Author LUIS CARLOS MCCARTNEY [facility] Address [address] [place] [address] Care Team Providers Care Acid Polymerization Operator Name Role Phone LUIS CARLOS MCCARTNEY Unavailable PROBLEMS Type Condition ICD9-CM Code TTI91-NT Code Onset Dates Condition Status SNOMED Code Problem Prediabetes R73.09 Active 0751737 Problem Hyperlipidemia E78.5 Active 84365516 Problem Essential hypertension I10 Active 85394785 Problem Insomnia G47.00 Active 082879057 Problem Vitamin D deficiency E55.9 Active 23965279 Problem Vitamin B12 deficiency E53.8 Active 773720685 Problem Abnormality of right breast on screening mammogram R92.8 Active 706661172 Problem Rosacea L71.9 Active 982780577 Problem Reactive depression F32.9 Active 82434323 Problem Grief F43.20 Active 95456671 ALLERGIES Unknown Allergies SOCIAL HISTORY No smoking Hx information available PLAN OF CARE VITAL SIGNS MEDICATIONS Unknown Medications RESULTS No Results PROCEDURES No Known procedures IMMUNIZATIONS No Known Immunizations
--- OUTSIDE RECORDS SUMMARY | 2018-03-18 06:05 | XMS REPORT ---
Author Author LUIS CARLOS MCCARTNEY [employer] Address Unknown Phone Unavailable Care Team Providers Care Tow Motor Mechanic Name Role Phone LUIS CARLOS MCCARTNEY Unavailable [...] mammogram 793.80 Active Medications No Known Medications Results No Known Results Summary Purpose [employer] Submission
--- OUTSIDE RECORDS SUMMARY | 2018-03-18 06:06 | XMS REPORT ---
Author Author LUIS CARLOS MCCARTNEY [employer] Address Unknown Phone Unavailable Care Team Providers Care Web Operations Lead Name Role Phone LUIS CARLOS MCCARTNEY CP Unavailable Allergies, Adverse Reactions, Alerts Substance Reaction Event Type Flexeril Info Not Available Drug Allergy Problems Problem Type Condition Code Onset Dates Condition Status Problem Essential hypertension I10 Active Problem Rosacea L71.9 Active Problem Insomnia G47.00 Active Assessment Acute upper respiratory infection, unspecified J06.9 Active Assessment Other viral agents as the cause of diseases classified elsewhere B97.89 Active Problem Hyperlipidemia E78.5 Active Problem Prediabetes R73.09 Active Medications Medication Code System Code Instructions Start Date End Date Status Dosage Lopressor [facility] 10923792604 50 MG TAKE ONE TABLET BY MOUTH TWICE DAILY (DO NOT CRUSH OR CHEW) Ibuprofen [facility] [address]-92 800 MG Orally Three times a day as needed 1 tablet Pseudoephedrine HCl [facility] [address]-10 60 MG Orally every 6 hrs Apr 17, 2015 1 tablet as needed Ortho-Cyclen (28) [facility] 89652500404 0.25-35 MG-MCG Orally Once a day 1 tablet Promethazine-Codeine [facility] [address]-07 6.25-10 MG/5ML Orally every 6 hrs Apr 17, 2015 5 ml as needed Procedures Procedure Coding System Code Date Office Visit, Est Pt., Level 3 CPT-4 44156 Apr 17, 2015 INFLUENZA ASSAY W/OPTIC CPT-4 20376 Apr 17, 2015 Vital Signs Date/Time: Apr 17, 2015 Temperature 98.2 F Weight 282.3 lbs Height 61 in BMI 53.33 Index Blood Pressure Diastolic 86 mmHg Blood Pressure Systolic 122 mmHg Cardiac Monitoring Heart Rate 84 bpm Results Name Result Date Reference Range Unit Abnormality Flag INFLUENZA A & B (IN HOUSE) ----Exp date 02/25/201720150417 ----INFLUENZA A negative [id number] ----INFLUENZA B negative [id number] ----Control + [id number] ----Lot # [id number] Summary Purpose Critical access hospitalinicalWorks Submission
--- OUTSIDE RECORDS SUMMARY | 2018-03-18 06:06 | XMS REPORT ---
Author Author CIARRA CROCKER Organization [employer] Address Unknown Phone Unavailable Care Team Providers Care Pigeon Fancier Name Role Phone CIARRA CROCKER CP Unavailable Allergies, Adverse Reactions, Alerts Substance Reaction Event Type Flexeril Info Not Available Drug Allergy Problems Problem Type Condition Code Onset Dates Condition Status Assessment Screening breast examination Z12.39 Active Problem Essential hypertension, benign 401.1 Active Problem Rosacea 695.3 Active Assessment History of abnormal mammogram Z87.898 Active Problem History of abnormal mammogram Z87.898 Active Problem Hyperlipidemia 272.4 Active Problem Screening breast examination Z12.39 Active Problem 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 Active Problem Calcaneal spur 726.73 Active Problem Insomnia, unspecified 780.52 Active Problem Unspecified abnormal mammogram 793.80 Active Medications Medication Code System Code Instructions Start Date End Date Status Dosage Ortho-Cyclen (28) [facility] [address]-01 0.25-35 MG-MCG Orally Once a day Jan 1 tablet Lopressor [facility] [address]-20 50 MG Feb 21, 2014 1 tablet by Oral route 2 times per day Ibuprofen [facility] [address]-47 800 MG Orally Three times a day as needed 1 tablet Procedures Procedure Coding System Code Date Office Visit, Est Pt., Level 3 CPT-4 98770 Feb 07, 2015 Vital Signs Date/Time: Feb 07, 2015 Temperature 98.5 F Weight 275.0 lbs Height 61 in BMI 51.96 Index Blood Pressure Diastolic 78 mmHg Blood Pressure Systolic 124 mmHg Results No Known Results Summary Purpose [employer] Submission
--- OUTSIDE RECORDS SUMMARY | 2018-03-18 06:06 | XMS REPORT ---
Author Author LUIS CARLOS MCCARTNEY [facility] Address [address] [place] [address] Care Team Providers Care Fare Collector Name Role Phone LUIS CARLOS MCCARTNEY Unavailable PROBLEMS Type Condition ICD9-CM Code PFY90-ED Code Onset Dates Condition Status SNOMED Code Problem Rosacea L71.9 Active 535541423 Problem Grief F43.20 Active 74963241 Problem Abnormality of right breast on screening mammogram R92.8 Active 012557623 Problem Insomnia G47.00 Active 239146756 Problem Prediabetes R73.09 Active 2498918 Problem Essential hypertension I10 Active 85398372 Problem Hyperlipidemia E78.5 Active 81046431 Problem Other elevated white blood cell (WBC) count D72.828 Active 748168426 Problem BMI 50.0-59.9, adult Z68.43 Active 770576027 Problem Vitamin D deficiency E55.9 Active 07576799 Problem Reactive depression F32.9 Active 54605366 Problem Dysmenorrhea N94.6 Active 490560117 Problem Vitamin B12 deficiency E53.8 Active 928421559 ALLERGIES Substance Reaction Event Type Date Status Flexeril Unknown Drug Allergy Feb, Active ENCOUNTERS Encounter Location Date Diagnosis [facility] [id number] [place] [address] [id number] Jul, 2017 Dental examination Z01.20 and Dental caries K02.9 [facility] [address] [place] [address] 84762- 6932 14 May, 2017 Well woman exam Z01.419 ; Screening for breast cancer Z12.39 and BMI 50.0-59.9, adult Z68.43 [facility] [address] [place] [address] 98665- 3828 Apr, [facility] [address] [place] [address] 87569- 8642 Mar, Other elevated white blood cell (WBC) count D72.828 [place] [address] [address]267- 1005 Mar, Other elevated white blood cell (WBC) count D72.828 [place] [address] 16692- 8582 Mar, Essential hypertension I10 [place] [address] 64734- 8682 Feb, Acute non-recurrent frontal sinusitis J01.10 ; Cough R05 ; Essential hypertension I10 ; Dysmenorrhea N94.6 and BMI 50.0-59.9, adult Z68.43 [place] [address] 84695- 1822 Dec, Pain in right leg M79.604 [place] [address] 81382- 8131 Oct, [place] [address] 19103- 6011 Sep, Pain in right leg M79.604 [place] [address] 93985- 5092 August, Essential hypertension I10 [facility] [address] [address] Jul, Impacted cerumen of right ear H61.21 [facility] [address] [address] Jul, Impacted cerumen of right ear H61.21 [place] [address] 43080- 3140 Jun, Vitamin B12 deficiency E53.8 ; Vitamin D deficiency E55.9 and Reactive depression F32.[address] [address]- [address] Apr, [place] [address] [place] [address] 40717- 0426 Apr, Grief F43.20 [place] [address] [place] [id number] [place] [address] 42656- 8204 13 Mar, 2016 Abnormality of right breast on screening mammogram R92.8 and Screening for breast cancer Z12.39 [place] [address] [place] [id number] [place] [address] 74347- 8040 07 Mar, 2016 Well woman exam Z01.419 ; Pelvic pain R10.2 ; Abnormality of right breast on screening mammogram R92.8 and Screening for breast cancer Z12.39 [place] [address] [place] [id number] [place] [address] 68436- 2089 Feb, [place] [address] [place] [id number] [place] [address] 24585- 5152 Feb, Vitamin B12 deficiency E53.8 [place] [address] [place] [id number] [place] [address] 55573- 9786 Feb, Vitamin B12 deficiency E53.8 [place] [address] [place] [id number] [place] [address] 39181- 2750 Feb, Essential hypertension I10 and Vitamin B12 deficiency E53.8 [place] [address] [place] [id number] [place] [address] 87234- 9760 Feb, Pain in right leg M79.604 ; Pain of left leg M79.605 ; Prediabetes R73.09 ; Hyperlipidemia E78.5 ; Essential hypertension I10 and Cramp of both lower extremities R25.2 [place] [address] [place] [id number] [place] [address] 96837- 7419 Feb, [place] [address] [place] [id number] [place] [address] 80151- 0679 Sep, Dysuria R30.0 and Acute cystitis with hematuria N30.01 [place] [address] [place] [id number] [place] [address] 04586- 7968 Jul, Essential hypertension I10 and Prediabetes R73.09 [place] [address] 29197- 9057 Apr, Acute upper respiratory infection, unspecified J06.9 and Other viral agents as the cause of diseases classified elsewhere B97.[address] 84762- 4047 Apr, [place] [address] 09053- 3198 Mar, Essential hypertension, benign 401.1 and Hyperlipidemia 272.[address] 87588- 6998 Mar, [address] 33659- 1655 Feb, [place] [address] 50445- 3495 Feb, [place] [address] 63893- 4932 Feb, History of abnormal mammogram Z87.898 [place] [address] [place] [id number] [place] [address] 87496- 8737 Feb, Screening breast examination Z12.39 and History of abnormal mammogram Z87.898 [place] [address] [place] [id number] [place] [address] 32768- 5633 Jan, [place] [id number] [place] [address] 02402- 2558 Jan, [address] 74949- 2873 Jan, Encounter for immunization Z23 [place] [id number] [place] [address] 07880- 1362 Jan, [place] [address] [place] [address]- 2243 Nov, Essential hypertension, benign 401.1 ; Hyperlipidemia 272.4 and Severe menstrual cramps 625.3 [facility] [address] [place] [id number] [place] [address] 83470- 1447 Sep, [facility] [address] [place] [id number] [place] [address] 06081- 3310 Sep, Intractable left heel pain 729.5 [facility] [address] 21136- 2859 Sep, Unspecified breast screening V76.10 [facility] [address] 26465- 9387 August, Conjunctivitis, left eye 372.30 [facility] [address] [place] [id number] [place] [address] 90761- 6912 Jul, [facility] [address] 40773- 3317 Jul, [facility] [address] [place] [id number] [place] [address] 29226- 0603 May, [facility] [address] [place] [id number] [place] [address] 96448- 6364 May, [facility] [address] [place] [id number] [place] [address] 15677- 5581 Apr, [facility] [address] [place] [id number] [place] [address] 57267- 3162 Apr, [facility] [address] [place] [id number] [place] [address] 09669- 3895 Apr, [facility] [address] [place] [id number] [place] [address] 38525- 9035 Apr, [facility] [address] [place] [id number] [place] [address] 65040- 4188 Apr, [facility] [address] [place] [id number] [place] [address] 39604- 3349 Apr, [facility] [place] [facility] [address] [id number] [place] [address]- 2217 Apr, [facility] [place] [facility] [address] [id number] [place] [address]- 5301 Apr, [facility] [place] [facility] [address] [id number] [place] [address]- 5520 Apr, [facility] [place] [facility] [address] [id number] [place] [address]- 5661 Feb, [facility] [place] [facility] [address] [id number] [place] [address]- 6673 Feb, [facility] [place] [facility] [address] [id number] [place] [address]- 7831 Feb, [facility] [place] [facility] [address] [id number] [place] [address]- 7330 Feb, [facility] [place] [facility] [address] [id number] [place] [address]- 0629 Feb, [facility] [place] [facility] [address] [id number] [place] [address]- 7980 Feb, [facility] [place] [facility] [address] [id number] [place] [address]- 6337 Jan, [facility] [place] [facility] [address] [id number] [place] [address]- 1218 Jan, [facility] [place] [facility] [address] [id number] [place] [address]- 8363 Jan, [facility] [place] [facility] [address] [id number] [place] [address]- 1045 Jan, [facility] [place] [facility] [address] [id number] [place] [address]- 1058 Jan, [facility] [place] [facility] [address] [id number] [place] [address]- 4624 Jan, [facility] [place] [facility] [address] [id number] [place] [address]- 1309 13 Jan, 2014 [facility] [place] [facility] [address] [id number] [place] [address]- 5484 13 Jan, 2014 [facility] [place] [facility] [address] [id number] [place] [address]- 0502 10 Jan, 2014 [facility] [place] [facility] [address] [id number] [place] [address]- 3166 09 Jan, 2014 [facility] [place] [facility] [address] [id number] [place] [address]- 2982 Jan, [facility] [place] [facility] [address] [id number] [place] [address]- 5601 Jan, [facility] [place] [facility] [address] [id number] [place] [address]- 3248 25 Dec, 2013 [facility] [place] [facility] [address] [id number] [place] [address]- 0682 25 Dec, 2013 [facility] [place] [facility] [address] [id number] [place] [address]- 4095 19 Dec, 2013 [facility] [place] [facility] [address] [id number] [place] [address]- 6862 19 Dec, 2013 [facility] [place] [facility] [address] [id number] [place] [address]- 6230 17 Dec, 2013 [facility] [place] [facility] [address] [id number] [place] [address]- 6057 17 Dec, 2013 [facility] [place] [facility] [address] [id number] [place] [address]- 8432 06 Dec, 2013 [facility] [place] [facility] [address] [id number] [place] [address]- 5152 Dec, [facility] [place] [facility] [address] [id number] [place] [address]- 7989 Nov, [facility] [place] [facility] [address] [id number] [place] [address]- 6671 Nov, [facility] [place] [facility] [address] [id number] [place] [address]- 8009 Oct, [facility] [place] [facility] [address] [id number] [place] [address]- 1479 Oct, [facility] [place] [facility] [address] [id number] [place] [address]- 0270 Jul, [facility] [place] [facility] [address] [id number] [place] [address]- 7744 Jul, [facility] [place] [facility] [address] [id number] [place] [address]- 9416 Jun, [facility] [place] [facility] [address] [id number] [place] [address]- 4006 Jun, [facility] [place] [facility] [address] [id number] [place] [address]- 9793 Jun, [facility] [place] [facility] [address] [id number] [place] [address]- 1328 Jun, [facility] [place] [facility] [address] [id number] [place] [address]- 1291 May, [facility] [place] [facility] [address] [id number] [place] [address]- 7844 May, [facility] [place] [facility] [address] [id number] [place] [address]- 9666 May, [facility] [place] [facility] [address] [id number] [place] [address]- 6324 May, [facility] [place] [facility] [address] [id number] [place] [address]- 3566 Apr, [facility] [place] [facility] [address] [id number] [place] [address]- 1898 Apr, [facility] [place] [facility] [address] [id number] [place] 2244 Apr, [facility] [place] [facility] [address] [id number] [place] [address]- 5667 Apr, [facility] [address] [id number] [place] [address]- 2733 Nov, [facility] [place] [facility] [address] [id number] [place] [address]- 6984 Oct, [facility] [place] [facility] [address] [id number] [place] [address]- 1975 Sep, [facility] [place] [facility] [address] [id number] [place] [address]- 6469 August, [facility] [place] [facility] [address] [id number] [place] [address]- 7012 Jul, [facility] [place] [facility] [address] [id number] [place] [address]- 2859 Jun, [facility] [place] [facility] [address] [id number] [place] [address]- 4809 Jun, [facility] [place] [facility] [address] [id number] [place] [address]- 2972 May, [facility] [place] [facility] [address] [id number] [place] [address]- 4179 Mar, [facility] [place] [facility] [address] [id number] [place] [address]- 3340 Feb, [facility] [place] [facility] [address] [id number] [place] [address]- 4169 Feb, [facility] [place] [facility] [address] [id number] [place] [address]- 3383 Jan, [facility] [place] [facility] [address] [id number] [place] [address]- 6911 Jan, [facility] [place] [facility] [address] [id number] [place] [address]- 9859 Dec, [facility] [place] [facility] [address] [id number] [place] [address]- 1066 Nov, [facility] [address] [id number] [place] [address]- 2546 Oct, [facility] [address] [facility] [id number] [place] [address]- 2546 August, [facility] [address] [facility] [id number] [place] [address]- 2546 August, [facility] [address] [facility] [id number] [place] [address]- 2546 August, [facility] [address] [id number] [place] [address]- 2546 May, [facility] [address] [facility] [id number] [place] [address]- 2546 Apr, [facility] [address] [facility] [id number] [place] [address]- 2546 Nov, [facility] [address] [facility] [id number] [address]- 2546 August, [facility] [address] [facility] [id number] [place] [address]- 2546 August, [facility] [address] [id number] [address]- 2546 Dec, [facility] [address] [id number] [address]- 2546 August, [facility] [address] [id number] [address]- 2546 Mar, [facility] [address] [facility] [id number] [address]- 2546 Feb, [facility] [address] [facility] [id number] [address]- 2546 Jan, [facility] [address] [id number] [address]- 2546 Sep, IMMUNIZATIONS No Known Immunizations SOCIAL HISTORY Never Assessed REASON FOR VISIT Depression fu -- gopal sebastian, cough, chest congestion , shortness of breath x 12 days PLAN OF CARE Activity Details Follow Up 6 Months Reason: VITAL SIGNS Height 61 in 2017-03-05 Weight 307.6 lbs 2017-03-05 Temperature 99.0 degrees Fahrenheit 2017-03-05 BMI 58.11 kg/m2 2017-03-05 Blood pressure systolic 138 mmHg 2017-03-05 Blood pressure diastolic 80 mmHg 2017-03-05 MEDICATIONS Medication Instructions Dosage Frequency Start Date End Date Duration Status Ibuprofen 800 MG Orally Three times a day as needed 1 tablet Active Tessalon Perles 100 mg Orally Three times a day 1 capsule as needed 8h 30 Feb, 2017 30 Mar, 2017 30 days Active Vitamin D 1000 UNIT Orally Once a day 1 tablet 24h Active Lopressor 50 mg Orally Twice a day 1 tablet with food 12h 90 days Active Ortho-Cyclen (28) 0.25-35 MG-MCG [...]
--- OUTSIDE RECORDS SUMMARY | 2018-03-18 06:06 | XMS REPORT ---
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
--- OUTSIDE RECORDS SUMMARY | 2018-03-18 06:06 | XMS REPORT ---
Author Author CIARRA CROCKER Organization [employer] Address Unknown Phone Unavailable Care Team Providers Care Gambling Monitor Name Role Phone CIARRA CROCKER CP Unavailable Allergies No Known Allergies Problems Problem Type Condition Code Onset Dates Condition Status Assessment History of abnormal mammogram Z87.898 Active Problem Essential hypertension, benign 401.1 Active [...]
--- OUTSIDE RECORDS SUMMARY | 2018-03-18 06:06 | XMS REPORT ---
Author Author LUIS CARLOS MCCARTNEY [facility] e[employer] Address Unknown Phone Unavailable Care Team Providers Care Medicaid Billing Specialist Name Role Phone LUIS CARLOS MCCARTNEY Unavailable [...] Instructions Start Date End Date Status Dosage Natroba [facility] [address]-27 0.9 % Externally Feb 21, 2015 as directed Results No Known Results Summary Purpose eClinicalWorks Submission
--- OUTSIDE RECORDS SUMMARY | 2018-03-18 06:06 | XMS REPORT ---
Author Author LUIS CARLOS MCCARTNEY [facility] e[employer] Address Unknown Phone Unavailable Care Team Providers Care Hot Pond Operator Name Role Phone LUIS CARLOS MCCARTNEY Unavailable Allergies No Known Allergies Problems Problem Type Condition Code Onset Dates Condition Status Problem Essential hypertension I10 Active Problem Rosacea L71.9 Active Problem Insomnia G47.00 Active Problem Hyperlipidemia E78.5 Active Problem Prediabetes R73.09 Active Medications No Known Medications Results No Known Results Summary Purpose eClinicalWorks Submission
--- OUTSIDE RECORDS SUMMARY | 2018-03-18 06:07 | XMS REPORT | Continuity of Care Document ---
Author Author Formerly [facility] Address Unknown Phone Unavailable Allergies Active Description Code Type Severity Reaction Onset Reported/Identified Relationship to Patient Clinical Status Yes NKANo Known Allergies NKA Miscellaneous Allergy Unknown N/A 07/27/2005 Yes Flexeril 10 mg tablet Drug Allergy 03/03/2012 Yes Flexeril 10 mg tablet Drug Allergy N/A N/A 03/03/2012 Medications There is no data. Problems Date Dx Coded Attending Type Code Diagnosis Diagnosed By 10/28/2007 TYRONE SHIRLEY DO 719.46 Pain In Joint Involving Lower Leg 10/28/2007 719.46 Pain In Joint Involving Lower Leg 10/28/2007 TYRONE SHIRLEY DO 719.46 Pain In Joint Involving Lower Leg 10/28/2007 719.46 Pain In Joint Involving Lower Leg 10/28/2007 TYRONE SHIRLEY DO 719.46 Pain In Joint Involving Lower Leg 10/28/2007 ALINE ORTIZ APRN 719.46 Pain In Joint Involving Lower Leg 10/28/2007 CESAR LEWIS APRN 719.46 Pain In Joint Involving Lower Leg 10/28/2007 LUIS CARLOS MCCARTNEY MD 719.46 Pain In Joint Involving Lower Leg 10/28/2007 LUIS CARLOS MCCARTNEY MD 719.46 Pain In Joint Involving Lower Leg 10/28/2007 SHAKIRA MARQUEZ APRN 719.46 Pain In Joint Involving Lower Leg 10/28/2007 TYRONE SHIRLEY DO 719.46 Pain In Joint Involving Lower Leg 10/28/2007 SHAKIRA MARQUEZ APRN 719.46 Pain In Joint Involving Lower Leg 10/28/2007 LUIS CARLOS MCCARTNEY MD 719.46 Pain In Joint Involving Lower Leg 10/28/2007 CIARRA CROCKER APRN 719.46 Pain In Joint Involving Lower Leg 12/17/2007 TYRONE SHIRLEY DO V25.49 Surveillance Of Other Contraceptive Method 12/17/2007 V25.49 Surveillance Of Other Contraceptive Method 12/17/2007 SHIRLEY SANTIAGO CUMMINGSA K V25.49 Surveillance Of Other Contraceptive Method 12/17/2007 V25.49 Surveillance Of Other Contraceptive Method 12/17/2007 FERN CUMMINGS TYRONE K V25.49 Surveillance Of Other Contraceptive Method 12/17/2007 ANGEL VAZQUEZ ALINE A V25.49 Surveillance Of Other Contraceptive Method 12/17/2007 CESAR LEWIS APRN R V25.49 Surveillance Of Other Contraceptive Method 12/17/2007 LUIS CARLOS MCCARTNEY MD V25.49 Surveillance Of Other Contraceptive Method 12/17/2007 LUIS CARLOS MCCARTNEY MD V25.49 Surveillance Of Other Contraceptive Method 12/17/2007 JIMMYSHAKIRA CHINO APRN A V25.49 Surveillance Of Other Contraceptive Method 12/17/2007 TYRONE SHIRLEY DO K V25.49 Surveillance Of Other Contraceptive Method 12/17/2007 SHAKIRA MARQUEZ APRN A V25.49 Surveillance Of Other Contraceptive Method 12/17/2007 LUIS CARLOS MCCARTNEY MD N V25.49 Surveillance Of Other Contraceptive Method 12/17/2007 CIARRA CROCKER APRN V25.49 Surveillance Of Other Contraceptive Method 03/23/2008 SHIRLEY SANTIAGO CUMMINGSA K 462 Pharyngitis Acute 03/23/2008 462 Pharyngitis Acute 03/23/2008 SHIRLEY DO TYRONE K 462 Pharyngitis Acute 03/23/2008 462 Pharyngitis Acute 03/23/2008 SANTIAGO SHIRLEY DOA K 462 Pharyngitis Acute 03/23/2008 ALKA ORTIZ APRNYL A 462 Pharyngitis Acute 03/23/2008 KRIS LEWIS APRNIA R 462 Pharyngitis Acute 03/23/2008 LUIS CARLOS MCCARTNEY MD 462 Pharyngitis Acute 03/23/2008 LUIS CARLOS MCCARTNEY MD 462 Pharyngitis Acute 03/23/2008 GÓMEZ MARQUEZ APRNIDI A 462 Pharyngitis Acute 03/23/2008 SANTIAGO SHIRLEY DOA K 462 Pharyngitis Acute 03/23/2008 JIMMYMook VAZQUEZ SHAKIRA A 462 Pharyngitis Acute 03/23/2008 LUIS CARLOS MCCARTNEY MD 462 Pharyngitis Acute 03/23/2008 LIZZETTE VAZQUEZCIARRA 462 Pharyngitis Acute 04/18/2008 SHIRLEY DO TYRONE K V25.40 Contraceptive Surveillance Unspecified 04/18/2008 SHIRLEY DO, TYRONE K V72.31 Pelvic Exam (internal) 04/18/2008 V25.40 Contraceptive Surveillance Unspecified 04/18/2008 V72.31 Pelvic Exam ( internal) 04/18/2008 SHIRLEY DO TYRONE K V25.40 Contraceptive Surveillance Unspecified 04/18/2008 SHIRLEY DO, TYRONE K V72.31 Pelvic Exam (internal) 04/18/2008 V25.40 Contraceptive Surveillance Unspecified 04/18/2008 V72.31 Pelvic Exam ( internal) 04/18/2008 SHIRLEY DO TYRONE K V25.40 Contraceptive Surveillance Unspecified 04/18/2008 SHIRLEY DO, TYRONE K V72.31 Pelvic Exam (internal) 04/18/2008 ANGEL VAZQUEZ ALINE A V25.40 Contraceptive Surveillance Unspecified 04/18/2008 ANGEL VAZQUEZ ALINE A V72.31 Pelvic Exam (internal) 04/18/2008 JAMIE LEWIS APRNRICIA R V25.40 Contraceptive Surveillance Unspecified 04/18/2008 DEBBIE VAZQUEZ CESAR R V72.31 Pelvic Exam (internal) 04/18/2008 LUIS CARLOS MCCARTNEY MD N V25.40 Contraceptive Surveillance Unspecified 04/18/2008 LUIS CARLOS MCCARTNEY MD V72.31 Pelvic Exam (internal) 04/18/2008 LUIS CARLOS MCCARTNEY MD V25.40 Contraceptive Surveillance Unspecified 04/18/2008 LUIS CRALOS MCCARTNEY MD V72.31 Pelvic Exam (internal) 04/18/2008 JIMMYMook VAZQUEZ SHAKIRA A V25.40 Contraceptive Surveillance Unspecified 04/18/2008 JIMMYMook VAZQUEZ SHAKIRA A V72.31 Pelvic Exam (internal) 04/18/2008 SHIRLEY DOSANTIAGOA K V25.40 Contraceptive Surveillance Unspecified 04/18/2008 SHIRLEY DO, TYRONE K V72.31 Pelvic Exam (internal) 04/18/2008 JIMMY APRN, SHAKIRA A V25.40 Contraceptive Surveillance Unspecified 04/18/2008 JIMMYMook VAZQUEZ SHAKIRA A V72.31 Pelvic Exam (internal) 04/18/2008 LUIS CARLOS MCCARTNEY MD V25.40 Contraceptive Surveillance Unspecified 04/18/2008 LUIS CARLOS MCCARTNEY MD V72.31 Pelvic Exam (internal) 04/18/2008 CIARRA CROCKER APRN V25.40 Contraceptive Surveillance Unspecified 04/18/2008 GEORGIEL CIARRA VAZQUEZ V72.31 Pelvic Exam (internal) 07/01/2008 TYRONE SHIRLEY DO K 380.10 Infective Otitis Externa Unspecified 07/01/2008 380.10 Infective Otitis Externa Unspecified 07/01/2008 SANTIAGO SHIRLEY DOA K 380.10 Infective Otitis Externa Unspecified 07/01/2008 380.10 Infective Otitis Externa Unspecified 07/01/2008 SANTIAGO SHIRLEY DOA K 380.10 Infective Otitis Externa Unspecified 07/01/2008 ALINE ORTIZ APRN A 380.10 Infective Otitis Externa Unspecified 07/01/2008 CESAR LEWIS APRN 380.10 Infective Otitis Externa Unspecified 07/01/2008 LUIS CARLOS MCCARTNEY MD N 380.10 Infective Otitis Externa Unspecified 07/01/2008 LUIS CARLOS MCCARTNEY MD 380.10 Infective Otitis Externa Unspecified 07/01/2008 SHAKIRA MARQUEZ APRN A 380.10 Infective Otitis Externa Unspecified 07/01/2008 TYRONE SHIRLEY DO K 380.10 Infective Otitis Externa Unspecified 07/01/2008 SHAKIRA MARQUEZ APRN A 380.10 Infective Otitis Externa Unspecified 07/01/2008 LUIS CARLOS MCCARTNEY MD 380.10 Infective Otitis Externa Unspecified 07/01/2008 CIARRA CROCKER APRN 380.10 Infective Otitis Externa Unspecified 09/22/2008 TYRONE SHIRLEY DO K 278.01 OBESITY MORBID 09/22/2008 278.01 OBESITY MORBID 09/22/2008 TYRONE SHIRLEY DO K 278.01 OBESITY MORBID 09/22/2008 278.01 OBESITY MORBID 09/22/2008 SANTIAGO SHIRLEY DOA K 278.01 OBESITY MORBID 09/22/2008 ALKA ORTIZ APRNYL A 278.01 OBESITY MORBID 09/22/2008 CESAR LEWIS APRN 278.01 OBESITY MORBID 09/22/2008 BIB MD, LUIS CARLOS N 278.01 OBESITY MORBID 09/22/2008 LUIS CARLOS MCCARTNEY MD N 278.01 OBESITY MORBID 09/22/2008 JIMMYLULÚ VAZQUEZ SHAKIRA A 278.01 OBESITY MORBID 09/22/2008 SHIRLEY DO, TYRONE K 278.01 OBESITY MORBID 09/22/2008 JIMMY VAZQUEZ SHAKIRA A 278.01 OBESITY MORBID 09/22/2008 LUIS CARLOS MCCARTNEY MD N 278.01 OBESITY MORBID 09/22/2008 LIZZETTE VAZQUEZCIARRA 278.01 OBESITY MORBID 02/02/2009 SHIRLEY DO, TYRONE K 787.91 Diarrhea 02/02/2009 SHIRLEY DO, TYRONE K 789.00 Abdominal Pain 02/02/2009 787.91 Diarrhea 02/02/2009 789.00 Abdominal Pain 02/02/2009 SHIRLEY DO, TYRONE K 787.91 Diarrhea 02/02/2009 SHIRLEY DO, TYRONE K 789.00 Abdominal Pain 02/02/2009 787.91 Diarrhea 02/02/2009 789.00 Abdominal Pain 02/02/2009 SHIRLEY DO, TYRONE K 787.91 Diarrhea 02/02/2009 SHIRLEY DO, TYRONE K 789.00 Abdominal Pain 02/02/2009 RAJMACKE DIRECTOR OF AGRICULTURE, ALINE A 787.91 Diarrhea 02/02/2009 ODALISE GEORGE, ALINE A 789.00 Abdominal Pain 02/02/2009 DEBBIE VAZQUEZ, CESAR R 787.91 Diarrhea 02/02/2009 DEBBIE VAZQUEZ, CESAR R 789.00 Abdominal Pain 02/02/2009 LUIS CARLOS MCCARTNEY MD N 787.91 Diarrhea 02/02/2009 LUIS CARLOS MCCARTNEY MD N 789.00 Abdominal Pain 02/02/2009 LUIS CARLOS MCCARTNEY MD N 787.91 Diarrhea 02/02/2009 LUIS CARLOS MCCARTNEY MD N 789.00 Abdominal Pain 02/02/2009 JIMMY VAZQUEZ, SHAKIRA A 787.91 Diarrhea 02/02/2009 JIMMY VAZQUEZ, SHAKIRA A 789.00 Abdominal Pain 02/02/2009 SHIRLEY DO, TYRONE K 787.91 Diarrhea 02/02/2009 SHIRLEY DO, TYRONE K 789.00 Abdominal Pain 02/02/2009 JIMMYLULÚ VAZQUEZ SHAKIRA A 787.91 Diarrhea 02/02/2009 JIMMY VAZQUEZ, SHAKIRA A 789.00 Abdominal Pain 02/02/2009 LUIS CARLOS MCCARTNEY MD N 787.91 Diarrhea 02/02/2009 LUIS CARLOS MCCARTNEY MD N 789.00 Abdominal Pain 02/02/2009 MADL DIRECTOR OF AGRICULTURE, CIARRA L 787.91 Diarrhea 02/02/2009 MADL DIRECTOR OF AGRICULTURE, CIARRA L 789.00 Abdominal Pain 02/09/2009 TYRONE SHIRLEY DO 616.10 Vaginitis 02/09/2009 616.10 Vaginitis 02/09/2009 TYRONE SHIRLEY DO 616.10 Vaginitis 02/09/2009 616.10 Vaginitis 02/09/2009 TYRONE SHIRLEY DO 616.10 Vaginitis 02/09/2009 ANGEL VAZQUEZ ALINE A 616.10 Vaginitis 02/09/2009 CESAR LEWIS APRN R 616.10 Vaginitis 02/09/2009 LUIS CARLOS MCCARTNEY MD N 616.10 Vaginitis 02/09/2009 LUIS CARLOS MCCARTNEY MD N 616.10 Vaginitis 02/09/2009 JIMMYLULÚ VAZQUEZ, SHAKIRA A 616.10 Vaginitis 02/09/2009 TYRONE SHIRLEY DO K 616.10 Vaginitis 02/09/2009 JIMMY VAZQUEZ, SHAKIRA A 616.10 Vaginitis 02/09/2009 LUIS CARLOS MCCARTNEY MD N 616.10 Vaginitis 02/09/2009 CIARRA CROCKER APRN L 616.10 Vaginitis 07/12/2009 TYRONE SHIRLEY DO 728.71 Plantar Fasciitis 07/12/2009 TYRONE SHIRLEY DO 729.5 Pain In Limb 07/12/2009 728.71 Plantar Fasciitis 07/12/2009 729.5 Pain In Limb 07/12/2009 TYRONE SHIRLEY DO 728.71 Plantar Fasciitis 07/12/2009 TYRONE SHIRLEY DO 729.5 Pain In Limb 07/12/2009 728.71 Plantar Fasciitis 07/12/2009 729.5 Pain In Limb 07/12/2009 TYRONE SHIRLEY DO 728.71 Plantar Fasciitis 07/12/2009 SHIRLEY DO, TYRONE K 729.5 Pain In Limb 07/12/2009 RAJOTTE DIRECTOR OF AGRICULTURE, ALINE A 728.71 Plantar Fasciitis 07/12/2009 RAJOTTE DIRECTOR OF AGRICULTURE, ALINE A 729.5 Pain In Limb 07/12/2009 LEWIS DIRECTOR OF AGRICULTURE, CESAR R 728.71 Plantar Fasciitis 07/12/2009 LEWIS DIRECTOR OF AGRICULTURE, CESAR R 729.5 Pain In Limb 07/12/2009 LUIS CARLOS MCCARTNEY MD N 728.71 Plantar Fasciitis 07/12/2009 LUIS CARLOS MCCARTNEY MD N 729.5 Pain In Limb 07/12/2009 LUIS CARLOS MCCARTNEY MD N 728.71 Plantar Fasciitis 07/12/2009 LUIS CARLOS MCCARTNEY MD N 729.5 Pain In Limb 07/12/2009 JIMMYMook VAZQUEZ SHAKIRA A 728.71 Plantar Fasciitis 07/12/2009 JIMMY APRN, SHAKIRA A 729.5 Pain In Limb 07/12/2009 FERN CUMMINGS TYRONE K 728.71 Plantar Fasciitis 07/12/2009 FERN CUMMINGS TYRONE K 729.5 Pain In Limb 07/12/2009 JIMMY APRN, SHAKIRA A 728.71 Plantar Fasciitis 07/12/2009 JIMMYLULÚ VAZQUEZ SHAKIRA A 729.5 Pain In Limb 07/12/2009 LUIS CARLOS MCCARTNEY MD N 728.71 Plantar Fasciitis 07/12/2009 LUIS CARLOS MCCARTENY MD N 729.5 Pain In Limb 07/12/2009 MADL GEORGE, CIARRA L 728.71 Plantar Fasciitis 07/12/2009 MADL GEORGE CIARRA L 729.5 Pain In Limb 08/22/2009 SHIRLEY DO TYRONE K 465.9 Upper Respiratory Infection 08/22/2009 SHIRLEY DO TYRONE K 786.2 Cough 08/22/2009 465.9 Upper Respiratory Infection 08/22/2009 786.2 Cough 08/22/2009 SHIRLEY DO, TYRONE K 465.9 Upper Respiratory Infection 08/22/2009 SHIRLEY DO, TYRONE K 786.2 Cough 08/22/2009 465.9 Upper Respiratory Infection 08/22/2009 786.2 Cough 08/22/2009 SHIRLEY DO TYRONE K 465.9 Upper Respiratory Infection 08/22/2009 SHIRLEY DO, TYRONE K 786.2 Cough 08/22/2009 RAJOTTE DIRECTOR OF AGRICULTURE, ALINE A 465.9 Upper Respiratory Infection 08/22/2009 RAJOTTE DIRECTOR OF AGRICULTURE, ALINE A 786.2 Cough 08/22/2009 LEWIS DIRECTOR OF AGRICULTURE, CESAR R 465.9 Upper Respiratory Infection 08/22/2009 LEWIS DIRECTOR OF AGRICULTURE, CESAR R 786.2 Cough 08/22/2009 LUIS CARLOS MCCARTNEY MD N 465.9 Upper Respiratory Infection 08/22/2009 LUIS CARLOS MCCARTNEY MD N 786.2 Cough 08/22/2009 LUIS CARLOS MCCARTNEY MD N 465.9 Upper Respiratory Infection 08/22/2009 LUIS CARLOS MCCARTNEY MD N 786.2 Cough 08/22/2009 JIMMY DIRECTOR OF AGRICULTURE, SHAKIRA A 465.9 Upper Respiratory Infection 08/22/2009 JIMMY DIRECTOR OF AGRICULTURE, SHAKIRA A 786.2 Cough 08/22/2009 FERN DO, TYRONE K 465.9 Upper Respiratory Infection 08/22/2009 FERN DO, TYRONE K 786.2 Cough 08/22/2009 JIMMY DIRECTOR OF AGRICULTURE, SHAKIRA A 465.9 Upper Respiratory Infection 08/22/2009 JIMMY DIRECTOR OF AGRICULTURE, SHAKIRA A 786.2 Cough 08/22/2009 LUIS CARLOS MCCARTNEY MD N 465.9 Upper Respiratory Infection 08/22/2009 LUIS CARLOS MCCARTNEY MD N 786.2 Cough 08/22/2009 MADL DIRECTOR OF AGRICULTURE, CIARRA L 465.9 Upper Respiratory Infection 08/22/2009 MADL DIRECTOR OF AGRICULTURE, CIARRA L 786.2 Cough 09/11/2009 SHIRLEY DO, TYRONE K 599.0 Urinary Tract Infection 09/11/2009 SHIRLEY DO, TYRONE K 788.1 Dysuria 09/11/2009 599.0 Urinary Tract Infection 09/11/2009 788.1 Dysuria 09/11/2009 SHIRLEY DO, TYRONE K 599.0 Urinary Tract Infection 09/11/2009 SHIRLEY DO, TYRONE K 788.1 Dysuria 09/11/2009 599.0 Urinary Tract Infection 09/11/2009 788.1 Dysuria 09/11/2009 SHIRLEY DO, TYRONE K 599.0 Urinary Tract Infection 09/11/2009 SHIRLEY DO, TYRONE K 788.1 Dysuria 09/11/2009 RAJOTTE DIRECTOR OF AGRICULTURE, ALINE A 599.0 Urinary Tract Infection 09/11/2009 RAJOTTE DIRECTOR OF AGRICULTURE, ALINE A 788.1 Dysuria 09/11/2009 KRIS LEWIS APRNIA R 599.0 Urinary Tract Infection 09/11/2009 JAMIE LEWIS APRNRICIA R 788.1 Dysuria 09/11/2009 LUIS CARLOS MCCARTNEY MD N 599.0 Urinary Tract Infection 09/11/2009 LUIS CARLOS MCCARTNEY MD N 788.1 Dysuria 09/11/2009 LUIS CARLOS MCCARTNEY MD N 599.0 Urinary Tract Infection 09/11/2009 LUIS CARLOS MCCARTNEY MD N 788.1 Dysuria 09/11/2009 JIMMY DIRECTOR OF AGRICULTURE, SHAKIRA A 599.0 Urinary Tract Infection 09/11/2009 JIMMY DIRECTOR OF AGRICULTURE, SHAKIRA A 788.1 Dysuria 09/11/2009 SANTIAGO SHIRLEY DOA K 599.0 Urinary Tract Infection 09/11/2009 SANTIAGO SHIRLEY DOA K 788.1 Dysuria 09/11/2009 JIMMY DIRECTOR OF AGRICULTURE, SHAKIRA A 599.0 Urinary Tract Infection 09/11/2009 JIMMY DIRECTOR OF AGRICULTURE, SHAKIRA A 788.1 Dysuria 09/11/2009 LUIS CARLOS MCCARTNEY MD N 599.0 Urinary Tract Infection 09/11/2009 LUIS CARLOS MCCARTNEY MD N 788.1 Dysuria 09/11/2009 MADL DIRECTOR OF AGRICULTURE, CIARRA L 599.0 Urinary Tract Infection 09/11/2009 MADL DIRECTOR OF AGRICULTURE, CIARRA L 788.1 Dysuria 12/18/2009 SANTIAGO SHIRLEY DOA K V76.10 Breast Screening, Unspecified 12/18/2009 V76.10 Breast Screening, Unspecified 12/18/2009 FERN CUMMINGS TYRONE K V76.10 Breast Screening, Unspecified 12/18/2009 V76.10 Breast Screening, Unspecified 12/18/2009 SANTIAGO SHIRLEY DOA K V76.10 Breast Screening, Unspecified 12/18/2009 ANGEL VAZQUEZ ALINE A V76.10 Breast Screening, Unspecified 12/18/2009 CESAR LEWIS APRN R V76.10 Breast Screening, Unspecified 12/18/2009 LUIS CARLOS MCCARTNEY MD V76.10 Breast Screening, Unspecified 12/18/2009 LUIS CARLOS MCCARTNEY MD V76.10 Breast Screening, Unspecified 12/18/2009 SHAKIRA MARQUEZ APRN A V76.10 Breast Screening, Unspecified 12/18/2009 SHIRLEY DO TYRONE K V76.10 Breast Screening, Unspecified 12/18/2009 SHAKIRA MARQUEZ APRN A V76.10 Breast Screening, Unspecified 12/18/2009 LUIS CARLOS MCCARTNEY MD V76.10 Breast Screening, Unspecified 12/18/2009 CIARRA CROCKER APRN V76.10 Breast Screening, Unspecified 01/31/2010 Ot 610.1 05/14/2010 SHIRLEY DO, TYRONE K 785.1 Palpitations 05/14/2010 785.1 Palpitations 05/14/2010 SHIRLEY DO, TYRONE K 785.1 Palpitations 05/14/2010 785.1 Palpitations 05/14/2010 SHIRLEY DO, TYRONE K 785.1 Palpitations 05/14/2010 ANGEL VAZQUEZ ALINE A 785.1 Palpitations 05/14/2010 CESAR LEWIS APRN R 785.1 Palpitations 05/14/2010 LUIS CARLOS MCCARTNEY MD 785.1 Palpitations 05/14/2010 LUIS CARLOS MCCARTNEY MD 785.1 Palpitations 05/14/2010 SHAKIRA MARQUEZ APRN A 785.1 Palpitations 05/14/2010 SHIRLEY DO, TYRONE K 785.1 Palpitations 05/14/2010 JIMMY VAZQUEZ SHAKIRA A 785.1 Palpitations 05/14/2010 LUIS CARLOS MCCARTNEY MD N 785.1 Palpitations 05/14/2010 CIARRA CROCKER APRN L 785.1 Palpitations 06/19/2010 SHIRLEY DO, TYRONE K 401.9 HYPERTENSION, UNSPECIFIED ESSENTIAL 06/19/2010 401.9 HYPERTENSION, UNSPECIFIED ESSENTIAL 06/19/2010 SHIRLEY DO, TYRONE K 401.9 HYPERTENSION, UNSPECIFIED ESSENTIAL 06/19/2010 401.9 HYPERTENSION, UNSPECIFIED ESSENTIAL 06/19/2010 SHIRLEY DO, TYRONE K 401.9 HYPERTENSION, UNSPECIFIED ESSENTIAL 06/19/2010 ANGEL VAZQUEZ ALINE A 401.9 HYPERTENSION, UNSPECIFIED ESSENTIAL 06/19/2010 DEBBIE VAZQUEZ CESAR R 401.9 HYPERTENSION, UNSPECIFIED ESSENTIAL 06/19/2010 LUIS CARLOS MCCARTNEY MD 401.9 HYPERTENSION, UNSPECIFIED ESSENTIAL 06/19/2010 LUIS CARLOS MCCARTNEY MD 401.9 HYPERTENSION, UNSPECIFIED ESSENTIAL 06/19/2010 JIMMY VAZQUEZ, SHAKIRA A 401.9 HYPERTENSION, UNSPECIFIED ESSENTIAL 06/19/2010 TYRONE SHIRLEY DO K 401.9 HYPERTENSION, UNSPECIFIED ESSENTIAL 06/19/2010 SHAKIRA MARQUEZ APRN A 401.9 HYPERTENSION, UNSPECIFIED ESSENTIAL 06/19/2010 LUIS CARLOS MCCARTNEY MD 401.9 HYPERTENSION, UNSPECIFIED ESSENTIAL 06/19/2010 CIARRA CROCKER APRN 401.9 HYPERTENSION, UNSPECIFIED ESSENTIAL 08/19/2010 SANTIAGO SHIRLEY DOA K 724.2 LUMBAGO 08/19/2010 724.2 LUMBAGO 08/19/2010 SANTIAGO SHIRLEY DOA K 724.2 LUMBAGO 08/19/2010 724.2 LUMBAGO 08/19/2010 SANTIAGO SHIRLEY DOA K 724.2 LUMBAGO 08/19/2010 ALINE ORTIZ APRN A 724.2 LUMBAGO 08/19/2010 CESAR LEWIS APRN R 724.2 LUMBAGO 08/19/2010 LUIS CARLOS MCCARTNEY MD 724.2 LUMBAGO 08/19/2010 LUISC ARLOS MCCARTNEY MD 724.2 LUMBAGO 08/19/2010 SHAKIRA MARQUEZ APRN A 724.2 LUMBAGO 08/19/2010 TYRONE SHIRLEY DO K 724.2 LUMBAGO 08/19/2010 JIMMY VAZQUEZ SHAKIRA A 724.2 LUMBAGO 08/19/2010 LUIS CARLOS MCCARTNEY MD N 724.2 LUMBAGO 08/19/2010 CIARRA CROCKER APRN 724.2 LUMBAGO 08/22/2010 SANTIAGO SHIRLEY DOA K 355.0 Lesion Of Sciatic Nerve 08/22/2010 355.0 Lesion Of Sciatic Nerve 08/22/2010 TYRONE SHIRLEY DO 355.0 Lesion Of Sciatic Nerve 08/22/2010 355.0 Lesion Of Sciatic Nerve 08/22/2010 TYRONE SHIRLEY DO K 355.0 Lesion Of Sciatic Nerve 08/22/2010 ANGEL VAZQUEZ ALINE A 355.0 Lesion Of Sciatic Nerve 08/22/2010 CESAR LEWIS APRN 355.0 Lesion Of Sciatic Nerve 08/22/2010 LUIS CARLOS MCCARTNEY MD 355.0 Lesion Of Sciatic Nerve 08/22/2010 LUIS CARLOS MCCARTNEY MD 355.0 Lesion Of Sciatic Nerve 08/22/2010 GÓMEZ MARQUEZ APRNIDI A 355.0 Lesion Of Sciatic Nerve 08/22/2010 TYRONE SHIRLEY DO K 355.0 Lesion Of Sciatic Nerve 08/22/2010 JIMMY VAZQUEZ SHAKIRA A 355.0 Lesion Of Sciatic Nerve 08/22/2010 LUIS CARLOS MCCARTNEY MD 355.0 Lesion Of Sciatic Nerve 08/22/2010 CIARRA CROCKER APRN 355.0 Lesion Of Sciatic Nerve 05/06/2011 TYRONE SHIRLEY DO K 373.11 Stye (hordeolum Externum) 05/06/2011 TYRONE SHIRLEY DO 695.3 ROSACEA 05/06/2011 TYRONE SHIRLEY DO V68.1 Issue Of Repeat Prescriptions 05/06/2011 373.11 Stye ( hordeolum Externum) 05/06/2011 695.3 ROSACEA 05/06/2011 V68.1 Issue Of Repeat Prescriptions 05/06/2011 TYRONE SHIRELY DO K 373.11 Stye (hordeolum Externum) 05/06/2011 TYRONE SHIRLEY DO K 695.3 ROSACEA 05/06/2011 TYRONE SHIRLEY DO V68.1 Issue Of Repeat Prescriptions 05/06/2011 373.11 Stye ( hordeolum Externum) 05/06/2011 695.3 ROSACEA 05/06/2011 V68.1 Issue Of Repeat Prescriptions 05/06/2011 FERN CUMMINGS TYRONE K 373.11 Stye (hordeolum Externum) 05/06/2011 TYRONE SHIRLEY DO K 695.3 ROSACEA 05/06/2011 TYRONE SHIRLEY DO K V68.1 Issue Of Repeat Prescriptions 05/06/2011 ALINE ORTIZ APRN A 373.11 Stye (hordeolum Externum) 05/06/2011 RAJOTTE DIRECTOR OF AGRICULTURE, ALINE A 695.3 ROSACEA 05/06/2011 ANGEL VAZQUEZ ALINE A V68.1 Issue Of Repeat Prescriptions 05/06/2011 JAMIE LEWIS APRNRICIA R 373.11 Stye (hordeolum Externum) 05/06/2011 KRIS LEWIS APRNIA R 695.3 ROSACEA 05/06/2011 JAMIE LEWIS APRNRICIA R V68.1 Issue Of Repeat Prescriptions 05/06/2011 LUIS CARLOS MCCARTNEY MD 373.11 Stye (hordeolum Externum) 05/06/2011 LUIS CARLOS MCCARTNEY MD N 695.3 ROSACEA 05/06/2011 LUIS CARLOS MCCARTNEY MD V68.1 Issue Of Repeat Prescriptions 05/06/2011 LUIS CARLOS MCCARTNEY MD N 373.11 Stye (hordeolum Externum) 05/06/2011 LUIS CARLOS MCCARTNEY MD 695.3 ROSACEA 05/06/2011 LUIS CARLOS MCCARTNEY MD V68.1 Issue Of Repeat Prescriptions 05/06/2011 SHAKIRA MARQUEZ APRN A 373.11 Stye (hordeolum Externum) 05/06/2011 SHAKIRA MARQUEZ APRN A 695.3 ROSACEA 05/06/2011 SHAKIRA MARQUEZ APRN A V68.1 Issue Of Repeat Prescriptions 05/06/2011 SHIRLEY DO TYRONE K 373.11 Stye (hordeolum Externum) 05/06/2011 SHIRLEY DOSANTIAGOA K 695.3 ROSACEA 05/06/2011 FERN DOSANTIAGOA K V68.1 Issue Of Repeat Prescriptions 05/06/2011 SHAKIRA MARQUEZ APRN A 373.11 Stye (hordeolum Externum) 05/06/2011 SHAKIRA MARQUEZ APRN A 695.3 ROSACEA 05/06/2011 SHAKIRA MARQUEZ APRN A V68.1 Issue Of Repeat Prescriptions 05/06/2011 LUIS CARLOS MCCARTNEY MD N 373.11 Stye (hordeolum Externum) 05/06/2011 LUIS CARLOS MCCARTNEY MD 695.3 ROSACEA 05/06/2011 LUIS CARLOS MCCARTNEY MD V68.1 Issue Of Repeat Prescriptions 05/06/2011 GEORGIEL DIRECTOR OF AGRICULTURESUSAN DelvalleCIARRA L 373.11 Stye (hordeolum Externum) 05/06/2011 GEORGIEL DIRECTOR OF AGRICULTURESUSANCIARRA L 695.3 ROSACEA 05/06/2011 GEORGIEL DIRECTOR OF AGRICULTURESUSANCIARRA L V68.1 Issue Of Repeat Prescriptions 11/05/2011 TYRONE SHIRLEY DO K 780.52 INSOMNIA UNSPECIFIED 11/05/2011 TYRONE SHIRLEY DO K V25.01 CONTRACEPTION - ORAL CONTRACEPTION 11/05/2011 TYRONE SHIRLEY DO K V72.31 Pouncing Lathe Operator Exam, Routine 11/05/2011 TYRONE SHIRLEY DO K V76.10 Breast Cancer Screening 11/05/2011 780.52 INSOMNIA UNSPECIFIED 11/05/2011 V25.01 CONTRACEPTION - ORAL CONTRACEPTION 11/05/2011 V72.31 Pouncing Lathe Operator Exam, Routine 11/05/2011 V76.10 Breast Cancer Screening 11/05/2011 TYRONE SHIRLEY DO K 780.52 INSOMNIA UNSPECIFIED 11/05/2011 TYRONE SHIRLEY DO K V25.01 CONTRACEPTION - ORAL CONTRACEPTION 11/05/2011 TYRONE SHIRLEY DO K V72.31 Pouncing Lathe Operator Exam, Routine 11/05/2011 SANTIAGO SHIRLEY DOA K V76.10 Breast Cancer Screening 11/05/2011 780.52 INSOMNIA UNSPECIFIED 11/05/2011 V25.01 CONTRACEPTION - ORAL CONTRACEPTION 11/05/2011 V72.31 Pouncing Lathe Operator Exam, Routine 11/05/2011 V76.10 Breast Cancer Screening 11/05/2011 SANTIAGO SHIRLEY DOA K 780.52 INSOMNIA UNSPECIFIED 11/05/2011 TYRONE SHIRLEY DO K V25.01 CONTRACEPTION - ORAL CONTRACEPTION 11/05/2011 TYRONE SHIRLEY DO K V72.31 Pouncing Lathe Operator Exam, Routine 11/05/2011 SHIRLEY SANTIAGO CUMMINGSA K V76.10 Breast Cancer Screening 11/05/2011 RAJOTTE DIRECTOR OF AGRICULTURE ALINE A 780.52 INSOMNIA UNSPECIFIED 11/05/2011 RAJOTTE DIRECTOR OF AGRICULTURE ALINE A V25.01 CONTRACEPTION - ORAL CONTRACEPTION 11/05/2011 RAJOTTE DIRECTOR OF AGRICULTURE, ALINE A V72.31 Pouncing Lathe Operator Exam, Routine 11/05/2011 RAJMACKE DIRECTOR OF AGRICULTURE, ALINE A V76.10 Breast Cancer Screening 11/05/2011 CESAR LEWIS APRN 780.52 INSOMNIA UNSPECIFIED 11/05/2011 KRIS LEWIS APRNIA R V25.01 CONTRACEPTION - ORAL CONTRACEPTION 11/05/2011 KRIS LEWIS APRNIA R V72.31 Pouncing Lathe Operator Exam, Routine 11/05/2011 CESAR LEWIS APRN R V76.10 Breast Cancer Screening 11/05/2011 LUIS CARLOS MCCARTNEY MD 780.52 INSOMNIA UNSPECIFIED 11/05/2011 LUIS CARLOS MCCARTNEY MD V25.01 CONTRACEPTION - ORAL CONTRACEPTION 11/05/2011 LUIS CARLOS MCCARTNEY MD V72.31 Pouncing Lathe Operator Exam, Routine 11/05/2011 LUIS CARLOS MCCARTNEY MD V76.10 Breast Cancer Screening 11/05/2011 LUIS CARLOS MCCARTNEY MD 780.52 INSOMNIA UNSPECIFIED 11/05/2011 LUIS CARLOS MCCARTNEY MD V25.01 CONTRACEPTION - ORAL CONTRACEPTION 11/05/2011 LUIS CARLOS MCCARTNEY MD V72.31 Pouncing Lathe Operator Exam, Routine 11/05/2011 LUIS CARLOS MCCARTNEY MD V76.10 Breast Cancer Screening 11/05/2011 SHAKIRA MARQUEZ APRN A 780.52 INSOMNIA UNSPECIFIED 11/05/2011 JIMMY VAZQUEZ SHAKIRA A V25.01 CONTRACEPTION - ORAL CONTRACEPTION 11/05/2011 JIMMY VAZQUEZ SHAKIRA A V72.31 Pouncing Lathe Operator Exam, Routine 11/05/2011 JIMMY VAZQUEZ SHAKIRA A V76.10 Breast Cancer Screening 11/05/2011 TYRONE SHIRLEY DO 780.52 INSOMNIA UNSPECIFIED 11/05/2011 SANTIAGO SHIRLEY DOA K V25.01 CONTRACEPTION - ORAL CONTRACEPTION 11/05/2011 TYRONE SHIRLEY DO K V72.31 Pouncing Lathe Operator Exam, Routine 11/05/2011 SANTIAGO SHIRLEY DOA K V76.10 Breast Cancer Screening 11/05/2011 JIMMY VAZQUEZ SHAKIRA A 780.52 INSOMNIA UNSPECIFIED 11/05/2011 JIMMY VAZQUEZ SHAKIRA A V25.01 CONTRACEPTION - ORAL CONTRACEPTION 11/05/2011 JIMMY VAZQUEZ SHAKIRA A V72.31 Pouncing Lathe Operator Exam, Routine 11/05/2011 JIMMY VAZQUEZ SHAKIRA A V76.10 Breast Cancer Screening 11/05/2011 LUIS CARLOS MCCARTNEY MD 780.52 INSOMNIA UNSPECIFIED 11/05/2011 LUIS CARLOS MCCARTNEY MD V25.01 CONTRACEPTION - ORAL CONTRACEPTION 11/05/2011 LUIS CARLOS MCCARTNEY MD V72.31 Pouncing Lathe Operator Exam, Routine 11/05/2011 LUIS CARLOS MCCARTNEY MD V76.10 Breast Cancer Screening 11/05/2011 SUSAN CROCKER APRNWNYJihan Zavaleta 780.52 INSOMNIA UNSPECIFIED 11/05/2011 LIZZETTE GREERNSUSANCIARRA L V25.01 CONTRACEPTION - ORAL CONTRACEPTION 11/05/2011 LIZZETTE GREERCIARRA Delvalle V72.31 Pouncing Lathe Operator Exam, Routine 11/05/2011 SUSAN CROCKER APRNWNYJihan Zavaleta V76.10 Breast Cancer Screening 03/03/2012 TYRONE SHIRLEY DO K 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 MASTOPATHY 03/03/2012 TYRONE SHIRLEY DO K 726.73 HEEL SPUR 03/03/2012 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 MASTOPATHY 03/03/2012 726.73 HEEL SPUR 03/03/2012 TYRONE SHIRLEY DO K 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 MASTOPATHY 03/03/2012 TYRONE SHIRLEY DO K 726.73 HEEL SPUR 03/03/2012 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 MASTOPATHY 03/03/2012 726.73 HEEL SPUR 03/03/2012 TYRONE SHIRLEY DO K 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 MASTOPATHY 03/03/2012 TYRONE SHIRLEY DO K 726.73 HEEL SPUR 03/03/2012 ALKA ORTIZ APRNYL A 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 MASTOPATHY 03/03/2012 ANGEL VAZQUEZ ALINE A 726.73 HEEL SPUR 03/03/2012 CESAR LEWIS APRN R 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 MASTOPATHY 03/03/2012 CESAR LEWIS APRN R 726.73 HEEL SPUR 03/03/2012 LUIS CARLOS MCCARTNEY MD 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 MASTOPATHY 03/03/2012 LUIS CARLOS MCCARTNEY MD 726.73 HEEL SPUR 03/03/2012 LUIS CARLOS MCCARTNEY MD 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 MASTOPATHY 03/03/2012 LUIS CARLOS MCCARTNEY MD 726.73 HEEL SPUR 03/03/2012 SHAKIRA MARQUEZ APRN 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 MASTOPATHY 03/03/2012 SHAKIRA MARQUEZ APRN A 726.73 HEEL SPUR 03/03/2012 SHIRLEY DO, TYRONE K 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 MASTOPATHY 03/03/2012 TYRONE SHIRLEY DO K 726.73 HEEL SPUR 03/03/2012 SHAKIRA MARQUEZ APRN A 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 MASTOPATHY 03/03/2012 GÓMEZ MARQUEZ APRNIDI A 726.73 HEEL SPUR 03/03/2012 LUIS CARLOS MCCARTNEY MD N 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 MASTOPATHY 03/03/2012 LUIS CARLOS MCCARTNEY MD 726.73 HEEL SPUR 03/03/2012 [facility] CIARRA VAZQUEZ L 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 MASTOPATHY 03/03/2012 MAD CIARRA VAZQUEZ L 726.73 HEEL SPUR 06/02/2012 784.0 headache 06/02/2012 TYRONE SHIRLEY DO K 784.0 headache 06/02/2012 784.0 headache 06/02/2012 TYRONE SHIRLEY DO K 784.0 headache 06/02/2012 ALKA ORTIZ APRNYL A 784.0 headache 06/02/2012 CESAR LEWIS APRN R 784.0 headache 06/02/2012 LUIS CARLOS MCCARTNEY MD N 784.0 headache 06/02/2012 LUIS CARLOS MCCARTNEY MD 784.0 headache 06/02/2012 JIMMYSHAKIRA Delvalle APRN A 784.0 headache 06/02/2012 TYRONE SHIRLEY DO K 784.0 headache 06/02/2012 GÓMEZ MARQUEZ APRNIDI A 784.0 headache 06/02/2012 LUIS CARLOS MCCARTNEY MD N 784.0 headache 06/02/2012 CIARRA CROCKER APRN L 784.0 headache 08/17/2012 524.60 TMJ 08/17/2012 TYRONE SHIRLEY DO K 524.60 TMJ 08/17/2012 ANGEL VAZQUEZ ALINE A 524.60 TMJ 08/17/2012 CESAR LEWIS APRN R 524.60 TMJ 08/17/2012 LUIS CARLOS MCCARTNEY MD N 524.60 TMJ 08/17/2012 LUIS CARLOS MCCARTNEY MD 524.60 TMJ 08/17/2012 SHAKIRA MARQUEZ APRN A 524.60 TMJ 08/17/2012 TYRONE SHIRLEY DO K 524.60 TMJ 08/17/2012 JIMMY VAZQUEZ SHAKIRA A 524.60 TMJ 08/17/2012 LUIS CARLOS MCCARTNEY MD N 524.60 TMJ 08/17/2012 CIARRA CROCKER APRN 524.60 TMJ 12/03/2012 TYRONE SHIRLEY DO K 401.1 HYPERTENSION, BENIGN ESSENTIAL 12/03/2012 ALKA ORTIZ APRNYL A 401.1 HYPERTENSION, BENIGN ESSENTIAL 12/03/2012 CESAR LEWIS APRN R 401.1 HYPERTENSION, BENIGN ESSENTIAL 12/03/2012 LUIS CARLOS MCCARTNEY MD N 401.1 HYPERTENSION, BENIGN ESSENTIAL 12/03/2012 LUIS CARLOS MCCARTNEY MD N 401.1 HYPERTENSION, BENIGN ESSENTIAL 12/03/2012 SHAKIRA MARQUEZ APRN A 401.1 HYPERTENSION, BENIGN ESSENTIAL 12/03/2012 TYRONE SHIRLEY DO K 401.1 HYPERTENSION, BENIGN ESSENTIAL 12/03/2012 GÓMEZ MARQUEZ APRNIDI A 401.1 HYPERTENSION, BENIGN ESSENTIAL 12/03/2012 LUIS CARLOS MCCARTNEY MD 401.1 HYPERTENSION, BENIGN ESSENTIAL 12/03/2012 CIARRA CROCKER APRN 401.1 HYPERTENSION, BENIGN ESSENTIAL 04/25/2013 ALKA ORTIZ APRNYL A 719.46 PAIN- KNEE 04/25/2013 CESAR LEWIS APRN R 719.46 PAIN- KNEE 04/25/2013 LUIS CARLOS MCCARTNEY MD N 719.46 PAIN- KNEE 04/25/2013 LUIS CARLOS MCCARTNEY MD N 719.46 PAIN- KNEE 04/25/2013 JIMMYSHAKIRA CHINO APRN A 719.46 PAIN- KNEE 04/25/2013 TYRONE SHIRLEY DO K 719.46 PAIN- KNEE 04/25/2013 JIMMYGÓMEZ CHINO APRNIDI A 719.46 PAIN- KNEE 04/25/2013 LUIS CARLOS MCCARTNEY MD N 719.46 PAIN- KNEE 04/25/2013 CIARRA CROCKER APRN 719.46 PAIN- KNEE 06/02/2013 CESAR LEWIS APRN R 487.1 INFLUENZA 06/02/2013 CESAR LEWIS APRN R 786.2 COUGH 06/02/2013 LUIS CARLOS MCCARTNEY MD N 487.1 INFLUENZA 06/02/2013 LUIS CARLOS MCCARTNEY MD N 786.2 COUGH 06/02/2013 LUIS CARLOS MCCARTNEY MD N 487.1 INFLUENZA 06/02/2013 LUIS CARLOS MCCARTNEY MD 786.2 COUGH 06/02/2013 JIMMY DIRECTOR OF AGRICULTURE, SHAKIRA A 487.1 INFLUENZA 06/02/2013 JIMMY DIRECTOR OF AGRICULTURE, SHAKIRA A 786.2 COUGH 06/02/2013 TYRONE SHIRLEY DO 487.1 INFLUENZA 06/02/2013 TYRONE SHIRLEY DO 786.2 COUGH 06/02/2013 JIMMY DIRECTOR OF AGRICULTURE, SHAKIRA A 487.1 INFLUENZA 06/02/2013 JIMMY DIRECTOR OF AGRICULTURE, SHAKIRA A 786.2 COUGH 06/02/2013 LUIS CARLOS MCCARTNEY MD N 487.1 INFLUENZA 06/02/2013 LUIS CARLOS MCCARTNEY MD N 786.2 COUGH 06/02/2013 MADL DIRECTOR OF AGRICULTURE, CIARRA L 487.1 INFLUENZA 06/02/2013 MADL DIRECTOR OF AGRICULTURE, CIARRA L 786.2 COUGH 12/21/2013 LUIS CARLOS MCCARTNEY MD N 465.9 UPPER RESPIRATORY INFECTION 12/21/2013 JIMMY DIRECTOR OF AGRICULTURE, SHAKIRA A 465.9 UPPER RESPIRATORY INFECTION 12/21/2013 TYRONE SHIRLEY DO 465.9 UPPER RESPIRATORY INFECTION 12/21/2013 JIMMY DIRECTOR OF AGRICULTURE, SHAKIRA A 465.9 UPPER RESPIRATORY INFECTION 12/21/2013 LUIS CARLOS MCCARTNEY MD N 465.9 UPPER RESPIRATORY INFECTION 12/21/2013 MADL DIRECTOR OF AGRICULTURE, CIARRA L 465.9 UPPER RESPIRATORY INFECTION 01/10/2014 JIMYMLULÚ VAZQUEZ, SHAKIRA A V16.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, OVARY 01/10/2014 JIMMY DIRECTOR OF AGRICULTURE, SHAKIRA A V72.31 COMPUTER SCIENCE PROFESSOR EXAM, ROUTINE 01/10/2014 JIMMY DIRECTOR OF AGRICULTURE, SHAKIRA A V73.81 HPV SCREENING 01/10/2014 JIMMY DIRECTOR OF AGRICULTURE, SHAKIRA A V76.10 BREAST CANCER SCREENING 01/10/2014 JIMMY DIRECTOR OF AGRICULTURE, SHAKIRA A V76.2 CERVICAL CANCER SCREENING (PAP SMEAR) 01/10/2014 TYRONE SHIRLEY DO V16.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, OVARY 01/10/2014 TYRONE SHIRLEY DO V72.31 COMPUTER SCIENCE PROFESSOR EXAM, ROUTINE 01/10/2014 TYRONE SHIRLEY DO V73.81 HPV SCREENING 01/10/2014 TYRONE SHIRLEY DO K V76.10 BREAST CANCER SCREENING 01/10/2014 TYRONE SHIRLEY DO K V76.2 CERVICAL CANCER SCREENING (PAP SMEAR) 01/10/2014 SHAKIRA MARQUEZ APRN A V16.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, OVARY 01/10/2014 JIMMYSHAKIRA CHINO APRN A V72.31 COMPUTER SCIENCE PROFESSOR EXAM, ROUTINE 01/10/2014 SHAKIRA MARQUEZ APRN A V73.81 HPV SCREENING 01/10/2014 SHAKIRA MARQUEZ APRN A V76.10 BREAST CANCER SCREENING 01/10/2014 SHAKIRA MARQUEZ APRN A V76.2 CERVICAL CANCER SCREENING (PAP SMEAR) 01/10/2014 LUIS CARLOS MCCARTNEY MD V16.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, OVARY 01/10/2014 LUIS CARLOS MCCARTNEY MD V72.31 COMPUTER SCIENCE PROFESSOR EXAM, ROUTINE 01/10/2014 LUIS CARLOS MCCARTNEY MD V73.81 HPV SCREENING 01/10/2014 LUIS CARLOS MCCARTNEY MD V76.10 BREAST CANCER SCREENING 01/10/2014 LUIS CARLOS MCCARTNEY MD V76.2 CERVICAL CANCER SCREENING (PAP SMEAR) 01/10/2014 ALEXIS CROCKER APRNA L V16.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, OVARY 01/10/2014 ALEXIS CROCKER APRNA L V72.31 COMPUTER SCIENCE PROFESSOR EXAM, ROUTINE 01/10/2014 SUSAN CROCKER APRNWNYA L V73.81 HPV SCREENING 01/10/2014 SUSAN CROCKER APRNWNYA L V76.10 BREAST CANCER SCREENING 01/10/2014 ALEXIS CROCKER APRNA L V76.2 CERVICAL CANCER SCREENING (PAP SMEAR) 01/17/2014 TYRONE SHIRLEY DO K V74.1 TB SCREENING 01/17/2014 SHAKIRA MARQUEZ APRN A V74.1 TB SCREENING 01/17/2014 LUIS CARLOS MCCARTNEY MD V74.1 TB SCREENING 01/17/2014 SUSAN CROCKER APRNWNYA L V74.1 TB SCREENING 02/06/2014 SHAKIRA MARQUEZ APRN A 793.80 ABNORMAL MAMMOGRAM 02/06/2014 LUIS CALROS MCCARTNEY MD 793.80 ABNORMAL MAMMOGRAM 02/06/2014 NICO CROCKER APRNNYA L 793.80 ABNORMAL MAMMOGRAM 04/08/2014 CIARRA CROCKER APRN 525.9 UNSPECIFIED DISORDER OF THE TEETH AND SUPPORTING STRUCTURES 04/20/2014 Ot 611.72 04/20/2014 Ot V16.3 04/20/2014 Ot 611.72 04/20/2014 Ot V72.63 04/20/2014 Ot V74.8 04/20/2014 JIMMYSHAKIRA DIRECTOR OF AGRICULTURE Ot 789.04 04/20/2014 JIMMYSHAKIRA DIRECTOR OF AGRICULTURE Ot V16.41 04/20/2014 JIMMYSHAKIRA DIRECTOR OF AGRICULTURE Ot 793.80 05/05/2014 JIMMYSHAKIRA APRN Ot 620.2 07/16/2014 Ot 611.72 07/16/2014 Ot V16.3 07/16/2014 Ot 611.72 07/16/2014 Ot V72.63 07/16/2014 Ot V74.8 07/16/2014 JIMMYSHAKIRA APRN Ot 789.04 07/16/2014 JIMMYSHAKIRA DIRECTOR OF AGRICULTURE Ot V16.41 07/16/2014 JIMMYSHAKIRA DIRECTOR OF AGRICULTURE Ot 793.80 07/16/2014 JIMMYSHAKIRA DIRECTOR OF AGRICULTURE Ot 620.2 07/19/2014 Ot 611.72 07/19/2014 Ot V16.3 07/19/2014 Ot 611.72 07/19/2014 Ot V72.63 07/19/2014 Ot V74.8 07/19/2014 JIMMYSHAKIRA DIRECTOR OF AGRICULTURE Ot 789.04 07/19/2014 JIMMYSHAKIRA DIRECTOR OF AGRICULTURE Ot V16.41 07/19/2014 JIMMYSHAKIRA DIRECTOR OF AGRICULTURE Ot 793.80 07/19/2014 JIMMYSHAKIRA DIRECTOR OF AGRICULTURE Ot 620.2 09/26/2014 JIMMYSHAKIRA DIRECTOR OF AGRICULTURE Ot 793.89 03/14/2015 CIARRA CROCKER CAFETERIA COOK Ot R92.8 10/23/2015 JIMMYSHAKIRA DIRECTOR OF AGRICULTURE Ot 789.04 ABDOMINAL PAIN, LEFT LOWER QUADRANT 10/23/2015 JIMMY SHAKIRA Bobo DIRECTOR OF AGRICULTURE Ot 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 10/23/2015 SHAKIRA MARQUEZ DIRECTOR OF AGRICULTURE Ot 793.80 UNSPEC ABNORMAL MAMMOGRAM 10/23/2015 SHAKIRA MARQUEZ DIRECTOR OF AGRICULTURE Ot 620.2 OVARIAN CYST NEC/NOS 10/23/2015 GÓMEZ MARQUEZIDI A DIRECTOR OF AGRICULTURE Ot 793.89 OTH (ABN) FINDINGS ON RADIOLOGICAL EXAMI 10/23/2015 MADL, CIARRA L CAFETERIA COOK Ot R92.8 OTH ABN AND INCONCLUSIVE FINDINGS ON DX 11/22/2015 SHAKIRA MARQUEZ DIRECTOR OF AGRICULTURE Ot 789.04 ABDOMINAL PAIN, LEFT LOWER QUADRANT 11/22/2015 GÓMEZ MARQUEZIDI A DIRECTOR OF AGRICULTURE Ot 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 11/22/2015 SHAKIRA MARQUEZ A DIRECTOR OF AGRICULTURE Ot 793.80 UNSPEC ABNORMAL MAMMOGRAM 11/22/2015 SHAKIRA MARQUEZ A DIRECTOR OF AGRICULTURE Ot 620.2 OVARIAN CYST NEC/NOS 11/22/2015 GÓMEZ MARQUEZIDI A DIRECTOR OF AGRICULTURE Ot 793.89 OTH (ABN) FINDINGS ON RADIOLOGICAL EXAMI 11/22/2015 MADL, CIARRA L CAFETERIA COOK Ot R92.8 OTH ABN AND INCONCLUSIVE FINDINGS ON DX 03/03/2016 SHAKIRA MARQUEZ DIRECTOR OF AGRICULTURE Ot 789.04 ABDOMINAL PAIN, LEFT LOWER QUADRANT 03/03/2016 SHAKIRA MARQUEZ DIRECTOR OF AGRICULTURE Ot 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 03/03/2016 SHAKIRA MARQUEZ A DIRECTOR OF AGRICULTURE Ot 793.80 UNSPEC ABNORMAL MAMMOGRAM 03/03/2016 SHAKIRA MARQUEZ DIRECTOR OF AGRICULTURE Ot 620.2 OVARIAN CYST NEC/NOS 03/03/2016 GÓMEZ MARQUEZIDI A DIRECTOR OF AGRICULTURE Ot 793.89 OTH (ABN) FINDINGS ON RADIOLOGICAL EXAMI 03/03/2016 MADL, CIARRA L CAFETERIA COOK Ot R92.8 OTH ABN AND INCONCLUSIVE FINDINGS ON DX 03/04/2016 BIB CALLAHAN, LUIS CARLOS Delvalle Ot M79.604 PAIN IN RIGHT LEG 03/04/2016 LUIS CARLOS MCCARTNEY MD Ot M79.605 PAIN IN LEFT LEG 04/16/2017 SHAKIRA MARQUEZ DIRECTOR OF AGRICULTURE Ot 789.04 ABDOMINAL PAIN, LEFT LOWER QUADRANT 04/16/2017 GÓMEZ MARQUEZIDI A DIRECTOR OF AGRICULTURE Ot 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 04/16/2017 JIMMY, SHAKIRA Jihan DIRECTOR OF AGRICULTURE Ot 793.80 UNSPEC ABNORMAL MAMMOGRAM 04/16/2017 SHAKIRA MARQUEZ DIRECTOR OF AGRICULTURE Ot 620.2 OVARIAN CYST NEC/NOS 04/16/2017 GÓMEZ MARQUEZIDI A DIRECTOR OF AGRICULTURE Ot 793.89 OTH (ABN) FINDINGS ON RADIOLOGICAL EXAMI 04/16/2017 MADLCIARRA L CAFETERIA COOK Ot R92.8 OTH ABN AND INCONCLUSIVE FINDINGS ON DX 04/16/2017 LUIS CARLOS MCCARTNEY MD Ot M79.604 PAIN IN RIGHT LEG 04/16/2017 LUIS CARLOS MCCARTNEY MD Ot M79.605 PAIN IN LEFT LEG 04/30/2017 SHAKIRA MARQUEZ DIRECTOR OF AGRICULTURE Ot 789.04 ABDOMINAL PAIN, LEFT LOWER QUADRANT 04/30/2017 GÓMEZ MARQUEZIDI Jihan DIRECTOR OF AGRICULTURE Ot 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 04/30/2017 SHAKIRA MARQUEZ A DIRECTOR OF AGRICULTURE Ot 793.80 UNSPEC ABNORMAL MAMMOGRAM 04/30/2017 SHAKIRA MARQUEZ DIRECTOR OF AGRICULTURE Ot 620.2 OVARIAN CYST NEC/NOS 04/30/2017 GÓMEZ MARQUEZIDI A DIRECTOR OF AGRICULTURE Ot 793.89 OTH (ABN) FINDINGS ON RADIOLOGICAL EXAMI 04/30/2017 CIARRA CROCKER L CAFETERIA COOK Ot R92.8 OTH ABN AND INCONCLUSIVE FINDINGS ON DX 04/30/2017 LUIS CARLOS MCCARTNEY MD Ot M79.604 PAIN IN RIGHT LEG 04/30/2017 LUIS CARLOS MCCARTNEY MD Ot M79.605 PAIN IN LEFT LEG 07/29/2017 KELSEA AYON MD Ot D72.829 ELEVATED WHITE BLOOD CELL COUNT, UNSPECI 07/29/2017 KELSEA AYON MD Ot E66.01 MORBID (SEVERE) OBESITY DUE TO EXCESS CA 07/29/2017 KELSEA AYON MD Ot I10 ESSENTIAL (PRIMARY) HYPERTENSION 07/29/2017 KELSEA AYON MD Ot M79.661 PAIN IN RIGHT LOWER LEG 07/29/2017 KELSEA AYON MD Ot M79.662 PAIN IN LEFT LOWER LEG 07/29/2017 KELSEA AYON MD Ot R53.83 OTHER FATIGUE 07/29/2017 GABO MD, ENAOMRADO Ot R68.89 OTHER GENERAL SYMPTOMS AND SIGNS 07/29/2017 KELSEA AYON MD Ot Z68.43 BODY MASS INDEX (BMI) 50-59.9 , ADULT 07/29/2017 KELSEA AYON MD Ot Z79.899 OTHER VETERINARIAN SMALL ANIMAL (CURRENT) DRUG THERAPY 07/30/2017 KELSEA AYON MD Ot D72.829 ELEVATED WHITE BLOOD CELL COUNT, UNSPECI 07/30/2017 KELSEA AYON MD Ot E66.01 MORBID (SEVERE) OBESITY DUE TO EXCESS CA 07/30/2017 KELSEA AYON MD Ot I10 ESSENTIAL (PRIMARY) HYPERTENSION 07/30/2017 KELSEA AYON MD Ot M79.661 PAIN IN RIGHT LOWER LEG 07/30/2017 KELSEA AYON MD Ot M79.662 PAIN IN LEFT LOWER LEG 07/30/2017 FLORIN AYON MDNER Ot R53.83 OTHER FATIGUE 07/30/2017 KELSEA AYON MD Ot R68.89 OTHER GENERAL SYMPTOMS AND SIGNS 07/30/2017 KELSEA AYON MD Ot Z68.43 BODY MASS INDEX (BMI) 50-59.9 , ADULT 07/30/2017 KELSEA AYON MD Ot Z79.899 OTHER VETERINARIAN SMALL ANIMAL (CURRENT) DRUG THERAPY 08/28/2017 KELSEA AYON MD Ot D72.829 ELEVATED WHITE BLOOD CELL COUNT, UNSPECI 08/28/2017 KELSEA AYON MD Ot E66.01 MORBID (SEVERE) OBESITY DUE TO EXCESS CA 08/28/2017 KELSEA AYON MD Ot I10 ESSENTIAL (PRIMARY) HYPERTENSION 08/28/2017 KELSEA AYON MD Ot M79.661 PAIN IN RIGHT LOWER LEG 08/28/2017 KELSEA AYON MD Ot M79.662 PAIN IN LEFT LOWER LEG 08/28/2017 KELSEA AYON MD Ot R53.83 OTHER FATIGUE 08/28/2017 FLORIN AYON MDNER Ot R68.89 OTHER GENERAL SYMPTOMS AND SIGNS 08/28/2017 KELSEA AYON MD Ot Z68.43 BODY MASS INDEX (BMI) 50-59.9 , ADULT 08/28/2017 KELSEA AYON MD Ot Z79.899 OTHER VETERINARIAN SMALL ANIMAL (CURRENT) DRUG THERAPY 11/25/2017 KELSEA AYON MD Ot D72.829 ELEVATED WHITE BLOOD CELL COUNT, UNSPECI 11/25/2017 KELSEA AYON MD Ot E66.01 MORBID (SEVERE) OBESITY DUE TO EXCESS CA 11/25/2017 KELSEA AYON MD Ot I10 ESSENTIAL (PRIMARY) HYPERTENSION 11/25/2017 KELSEA AYON MD Ot M79.661 PAIN IN RIGHT LOWER LEG 11/25/2017 KELSEA AYON MD Ot M79.662 PAIN IN LEFT LOWER LEG 11/25/2017 KELSEA AYON MD Ot R53.83 OTHER FATIGUE 11/25/2017 KELSEA AYON MD Ot R68.89 OTHER GENERAL SYMPTOMS AND SIGNS 11/25/2017 KELSEA AYON MD Ot Z68.43 BODY MASS INDEX (BMI) 50-59.9 , ADULT 11/25/2017 KELSEA AYON MD Ot Z79.899 OTHER CORRECTION (CURRENT) DRUG THERAPY 12/01/2017 KELSEA AYON MD Ot D72.829 ELEVATED WHITE BLOOD CELL COUNT, UNSPECI 12/01/2017 KELSEA AYON MD Ot E66.01 MORBID (SEVERE) OBESITY DUE TO EXCESS CA 12/01/2017 KELSEA AYON MD Ot I10 ESSENTIAL (PRIMARY) HYPERTENSION 12/01/2017 KELSEA AYON MD Ot M79.661 PAIN IN RIGHT LOWER LEG 12/01/2017 KELSEA AYON MD Ot M79.662 PAIN IN LEFT LOWER LEG 12/01/2017 KELSEA AYON MD Ot R53.83 OTHER FATIGUE 12/01/2017 KELSEA AYON MD Ot R68.89 OTHER GENERAL SYMPTOMS AND SIGNS 12/01/2017 KELSEA AYON MD Ot Z68.43 BODY MASS INDEX (BMI) 50-59.9 , ADULT 12/01/2017 KELSEA AYON MD Ot Z79.899 OTHER CORRECTION (CURRENT) DRUG THERAPY 03/12/2018 SASHA DESHPANDE DO Ot Z01.818 ENCOUNTER FOR OTHER PREPROCEDURAL EXAMIN 03/16/2018 SASHA DESHPANDE DO Ot Z01.818 ENCOUNTER FOR OTHER PREPROCEDURAL EXAMIN Procedures Code Description Performed By Performed On TIMI ALLYAMRIK 03/03/2012 25970 INFLUENZA A & B (IN-HOUSE) 06/02/2012 34599 OXIMETRY 06/03/2013 34106 ROUTINE VENIPUNCTURE 06/20/2013 90765 A1C (IN-HOUSE) 06/20/2013 88744 LIPID PANEL 06/20/2013 29718 XRAY KNEE LEFT 3 VIEWS 12/22/2013 31592 ROUTINE VENIPUNCTURE 01/10/2014 26648 TEST, URINE (IN- HOUSE) 01/10/2014 02302 CA 125 01/12/2014 13190 PAP SMEAR 01/13/2014 07328 US PELVIC COMPL (REFLEX CPT - 31843) 01/16/2014 65381 MAMMOGRAM, SCREENING 01/16/2014 Q0091 PAP SMEAR OBTAIN SMEAR 01/16/2014 81480 TB TEST INTRADERMAL 01/17/2014 75332 MAMMOGRAM DX, RIGHT 01/23/2014 97675 US PELVIC COMPL (REFLEX CPT - 75432) 04/08/2014 Results Test Result Range CBC With Differential/Platelet - 02/20/16 11:17 WBC 11.1 x10E3/uL 3.4-10.8 RBC 4.99 x10E6/uL 3.77-5.28 Hemoglobin 14.6 g/dL 11.1-15.9 Hematocrit 43.7 % 34.0-46.6 MCV 88 fL 79-97 MCH 29.3 pg 26.6-33.0 MCHC 33.4 g/dL 31.5-35.7 RDW 14.2 % 12.3-15.4 Platelets 284 x10E3/uL 150-379 Neutrophils 59 % Lymphs 32 % Monocytes 5 % Eos 3 % Basos 1 % Neutrophils (Absolute) 6.6 x10E3/uL 1.4-7.0 Lymphs (Absolute) 3.5 x10E3/uL 0.7-3.1 Monocytes(Absolute) 0.6 x10E3/uL 0.1-0.9 Eos (Absolute) 0.4 x10E3/uL 0.0-0.4 Baso (Absolute) 0.1 x10E3/uL 0.0-0.2 Immature Granulocytes 0 % Immature Grans (Abs) 0.0 x10E3/uL 0.0-0.1 Comp. Metabolic Panel (14) - 02/20/16 11:17 Glucose, Serum 96 mg/dL 65-99 BUN 12 mg/dL 6-24 Creatinine, Serum 0.65 mg/dL 0.57-1.00 eGFR If NonAfricn Am 110 mL/min/1.73 >59 eGFR If Africn Am 127 mL/min/1.73 >59 BUN/Creatinine Ratio 18 9-23 Sodium, Serum 140 mmol/L 136-144 Potassium, Serum 4.5 mmol/L 3.5-5.2 Chloride, Serum 101 mmol/L 97-106 Carbon Dioxide, Total 23 mmol/L 18-29 Calcium, Serum 9.3 mg/dL 8.7-10.2 Protein, Total, Serum 6.8 g/dL 6.0-8.5 Albumin, Serum 4.2 g/dL 3.5-5.5 Globulin, Total 2.6 g/dL 1.5-4.5 A/G Ratio 1.6 1.1-2.5 Bilirubin, Total 0.3 mg/dL 0.0-1.2 Alkaline Phosphatase, S 106 IU/L 39-117 AST (SGOT) 18 IU/L 0-40 ALT (SGPT) 29 IU/L 0-32 Lipid Panel - 02/20/16 11:17 Cholesterol, Total 192 mg/dL 100-199 Triglycerides 149 mg/dL 0-149 HDL Cholesterol 51 mg/dL >39 VLDL Cholesterol Silas 30 mg/dL 5-40 LDL Cholesterol Calc 111 mg/dL 0-99 Folate (Folic Acid), Serum - 02/20/16 11:17 Folate (Folic Acid), Serum 5.5 ng/mL >3.0 Vitamin D, 25-Hydroxy - 02/20/16 11:17 Vitamin D, 25-Hydroxy 13.2 ng/mL 30.0-100.0 Vitamin B12 - 02/20/16 11:17 Vitamin B12 180 pg/mL 211-946 Magnesium, Serum - 02/20/16 11:17 Magnesium, Serum 1.8 mg/dL 1.6-2.3 Intrinsic Factor Abs, Serum - 02/27/16 09:56 Intrinsic Factor Abs, Serum 1.1 AU/mL 0.0-1.1 CBC - 03/27/17 08:22 WHITE BLOOD CELL COUNT 13.3 Thousand/uL 3.8-10.8 RED BLOOD CELL COUNT 5.03 Million/uL 3.80-5.10 HEMOGLOBIN 14.3 g/dL 11.7-15.5 HEMATOCRIT 43.9 % 35.0-45.0 MCV 87.3 fL 80.0-100.0 MCH 28.4 pg 27.0-33.0 MCHC 32.6 g/dL 32.0-36.0 RDW 13.4 % 11.0-15.0 PLATELET COUNT 269 Thousand/uL 140-400 MPV 10.7 fL 7.5-12.5 ABSOLUTE NEUTROPHILS 8193 cells/uL 6719-9186 ABSOLUTE LYMPHOCYTES 3977 cells/uL 850-3900 ABSOLUTE MONOCYTES 758 cells/uL 200-950 ABSOLUTE EOSINOPHILS 293 cells/uL 15-500 ABSOLUTE BASOPHILS 80 cells/uL 0-200 NEUTROPHILS 61.6 % NRG LYMPHOCYTES 29.9 % NRG MONOCYTES 5.7 % NRG EOSINOPHILS 2.2 % NRG BASOPHILS 0.6 % NRG CBC - 04/02/17 15:42 WHITE BLOOD CELL COUNT 11.8 Thousand/uL 3.8-10.8 RED BLOOD CELL COUNT 4.66 Million/uL 3.80-5.10 HEMOGLOBIN 13.5 g/dL 11.7-15.5 HEMATOCRIT 41.3 % 35.0-45.0 MCV 88.6 fL 80.0-100.0 MCH 29.0 pg 27.0-33.0 MCHC 32.7 g/dL 32.0-36.0 RDW 13.1 % 11.0-15.0 PLATELET COUNT 269 Thousand/uL 140-400 MPV 10.9 fL 7.5-12.5 ABSOLUTE NEUTROPHILS 7540 cells/uL 7228-5670 ABSOLUTE LYMPHOCYTES 3092 cells/uL 850-3900 ABSOLUTE MONOCYTES 755 cells/uL 200-950 ABSOLUTE EOSINOPHILS 319 cells/uL 15-500 ABSOLUTE BASOPHILS 94 cells/uL 0-200 NEUTROPHILS 63.9 % NRG LYMPHOCYTES 26.2 % NRG MONOCYTES 6.4 % NRG EOSINOPHILS 2.7 % NRG BASOPHILS 0.8 % NRG Encounters ACCT No. Visit Date/Time Discharge Status Pt. Type Provider Facility Loc./Unit Complaint [id number] 04/08/2014 10:16:00 04/08/2014 23:59:59 CLS Outpatient CIARRA CROCKER APRN [id number] 02/21/2014 08:55:00 02/21/2014 23:59:59 CLS Outpatient LUIS CARLOS MCCARTNEY MD [id number] 01/17/2014 15:59:00 01/17/2014 23:59:59 CLS Outpatient TYRONE SHIRLEY DO [id number] 01/10/2014 17:15:00 01/10/2014 23:59:59 CLS Outpatient SHAKIRA MARQUEZ APRN [id number] 01/10/2014 17:15:00 01/10/2014 23:59:59 CLS Outpatient JIMMY DIRECTOR OF AGRICULTURESHAKIRA Delvalle Jihan [id number] 12/21/2013 16:08:00 12/21/2013 23:59:59 CLS Outpatient LUIS CARLOS MCCARTNEY MD [id number] 06/21/2013 15:19:00 06/21/2013 23:59:59 CLS Outpatient LUIS CARLOS MCCARTNEY MD [id number] 06/02/2013 15:30:00 06/02/2013 23:59:59 CLS Outpatient CESAR LEWIS APRN Jessica [id number] 04/25/2013 07:56:00 04/25/2013 23:59:59 CLS Outpatient ALINE ORTIZ APRN Jihan [id number] 12/03/2012 14:41:00 12/03/2012 23:59:59 CLS Outpatient TYRONE SHIRLEY DO [id number] 06/21/2012 15:43:00 06/21/2012 23:59:59 CLS Outpatient TYRONE SHIRLEY DO [id number] 06/02/2012 09:32:00 06/02/2012 23:59:59 CLS Outpatient [id number] 12/19/2011 12:48:00 12/19/2011 23:59:59 CLS Outpatient TYRONE SHIRLEY DO [id number] 08/17/2012 16:17:00 Document Registration [id number] 03/15/2018 10:15:00 03/15/2018 12:51:00 DIS Outpatient SASHA DESHPANDE DO S [facility] PREOP ABNORMAL UTERINE BLEEDING; BMT>55 [id number] 08/27/2017 12:44:00 08/27/2017 23:59:59 CLS Outpatient KELSEA AYON MD [facility] ONC [id number] 05/28/2017 12:51:00 07/29/2017 00:01:00 DIS Outpatient KELSEA AYON MD [facility] ONC [id number] 03/03/2016 11:23:00 03/03/2016 23:59:59 CLS Outpatient LUIS CARLOS MCCARTNEY MD [facility] RAD BILAT LEG PAIN [id number] 02/28/2015 11:38:00 02/28/2015 23:59:59 CLS Outpatient CIARRA CROCKER [facility] RAD HX OF ABNORMAL MAMMO [id number] 09/04/2014 14:24:00 09/04/2014 23:59:59 CLS Outpatient SHAKIRA MARQUEZ DIRECTOR OF AGRICULTURE [facility] RAD 6 MONTH FOLLOW UP ABNORMAL MAMMO [id number] 04/21/2014 09:46:00 04/21/2014 23:59:59 CLS Outpatient SHAKIRA MARQUEZ A DIRECTOR OF AGRICULTURE [facility] RAD 3 MONTH FOLLOW UP CYST [id number] 02/17/2014 09:06:00 02/17/2014 23:59:59 CLS Outpatient SHAKIRA MARQUEZ DIRECTOR OF AGRICULTURE [facility] RAD ASYMETREY IN RIGHT BREAST [id number] 01/30/2014 13:56:00 01/30/2014 23:59:59 CLS Outpatient SHAKIRA MARQUEZ DIRECTOR OF AGRICULTURE [facility] RAD LLQ, FAM HX OF OVARIAN CA, SCREENING [id number] 02/04/2013 18:23:00 02/04/2013 23:59:59 CLS Outpatient [id number] 03/18/2018 05:58:00 ACT Outpatient SASHA DESHPANDE DO [facility] SDC ABNORMAL UTERINE BLEEDING [id number] 11/26/2017 00:10:00 Document Registration [id number] 04/20/2014 11:33:00 Document Registration [id number] 01/31/2010 05:39:00 Document Registration [id number] 01/25/2010 08:47:00 Document Registration [id number] 12/25/2009 12:45:00 Document Registration [id number] 02/21/2016 13:06:00 Document Registration [id number] 02/29/2016 18:05:00 Document Registration [id number] 10/12/2017 09:00:00 10/12/2017 23:59:59 CLS Outpatient LUIS CARLOS MCCARTNEY MD [facility] [id number] 04/02/2017 15:40:00 Document Registration [id number] 03/27/2017 09:00:00 Document Registration
[2018-03-18 06:20] VITALS: BP 143/99
[2018-03-18] MEDS: LACTATED RINGERS 1,000 ML IV PRN ×2 (06:36→08:49)
[2018-03-18 06:50] LABS: BASOPHILS # (AUTO) 0.1 10^3/uL (0.0-0.1); BASOPHILS % (AUTO) 1 % (0-10); EOSINOPHILS # (AUTO) 0.3 10^3/uL (0.0-0.3); EOSINOPHILS % (AUTO) 3 % (0-10); HEMATOCRIT 41 % (35-52); HEMOGLOBIN 13.6 G/DL (11.5-16.0); LYMPHOCYTES # (AUTO) 3.2 X 10^3 (1.0-4.0); LYMPHOCYTES % (AUTO) 27 % (12-44); MEAN CORPUSCULAR HEMOGLOBIN 29 PG (25-34); MEAN CORPUSCULAR HGB CONC 33 G/DL (32-36); MEAN CORPUSCULAR VOLUME 87 FL (80-99); MONOCYTES # (AUTO) 0.8 X 10^3 (0.0-1.0); MONOCYTES % (AUTO) 7 % (0-12); NEUTROPHILS # (AUTO) 7.5 X 10^3 (1.8-7.8); NEUTROPHILS % (AUTO) 63 % (42-75); PLATELET COUNT 258 10^3/uL (130-400); RED BLOOD COUNT 4.75 10^6/uL (4.35-5.85); RED CELL DISTRIBUTION WIDTH 13.7 % (10.0-14.5); WHITE BLOOD COUNT 11.8 10^3/uL (4.3-11.0)
[2018-03-18] MEDS ORDERED: BUPIVACAINE 0.25% 30 ML (SENSORCAINE) VIAL ONE (06:59)
[2018-03-18] MEDS ORDERED: MIDAZOLAM 2 MG/2 ML (VERSED) VIAL ONE (07:04)
[2018-03-18] MEDS ORDERED: fentaNYL INJECTION 100 MCG/2 ML AMP ONE (07:04)
[2018-03-18] MEDS ORDERED: D5 LR IV SOLUTION 1,000 ML IV SCH (07:13)
--- NOTE | 2018-03-18 07:13 | Progress Note-Pre Operative ---
Pre-Operative Progress Note H&P Reviewed The H&P was reviewed, patient examined and no changes noted. Date Seen by Provider: Mar 18, 2018 Time Seen by Provider: 07:13 Date H&P Reviewed: Mar 18, 2018 Time H&P Reviewed: 07:13 Pre-Operative Diagnosis: AUB, BMI 56 SASHA DESHPANDE DO Mar 18, 2018 07:13
[2018-03-18] MEDS ORDERED: KETOROLAC 30 MG/ML VIAL IVP ONE (07:15)
[2018-03-18] MEDS ORDERED: ONDANSETRON 4 MG/2 ML (SDV) Z0FRAN IVP PRN ×2 (07:15→08:30)
--- NOTE | 2018-03-18 07:16 | Discharge Inst-Women's Service ---
Discharge Inst-Women's Serv Depart Medication/Instructions New, Converted or Re-Newed RX: RX on Chart Consults/Follow Up Additional Follow Up: Yes Orders/Referrals Dr. Deshpande in 2-3 weeks Activity Activity: Activity as Tolerated Driving Instructions: No Driving for 1 Week NO SMOKING: NO SMOKING Nothing Inside Vagina: No Douching, No [place], No Tampons Diet Discharge Diet: No Restrictions Symptoms to Report to : Bleeding Excessive, Pain Increased, Fever Over 101 Degrees F, Vaginal Bleeding Increase, Questions/Concerns SASHA DESHPANDE DO Mar 18, 2018 07:16
[2018-03-18] MEDS ORDERED: proPOfol 200 MG/20 ML (DIPRIVAN) VIAL IV ONE (08:23)
[2018-03-18] MEDS ORDERED: DEXAMETHASONE 10 MG/ML (DECADRON) 1 ML VIAL ONE (08:23)
[2018-03-18] MEDS ORDERED: SUCCINYLCHOLINE INJ 100 MG/5 ML SYR ONE (08:23)
[2018-03-18] MEDS ORDERED: KETOROLAC 30 MG/ML VIAL ONE (08:23)
[2018-03-18] MEDS ORDERED: LIDOCAINE PF 2% 5 ML (XYLOCAINE) VIAL ONE (08:23)
[2018-03-18] MEDS ORDERED: morphine INJ 10 MG/ML 1ML (SYR OR VIAL) IVP ONE (08:30)
[2018-03-18 09:10] VITALS: BP 142/89
[2018-03-18 09:40] VITALS: BP 142/89
--- NOTE | 2018-03-18 12:59 | Anesthesia-General Post-Op ---
General Patient Condition Mental Status/LOC: Same as Preop Cardiovascular: Satisfactory Nausea/Vomiting: Absent Respiratory: Satisfactory Pain: Controlled Complications: Absent Post Op Complications Complications None Follow Up Care/Instructions Patient Instructions None needed. Anesthesia/Patient Condition Patient Condition Patient is doing well, no complaints, stable vital signs, no apparent adverse anesthesia problems. No complications reported per nursing. BILL VAZQUEZ CRNA Mar 18, 2018 12:59
--- NOTE | 2018-03-18 14:43 | OPERATIVE REPORT ---
DATE OF SERVICE: PREOPERATIVE DIAGNOSES: 1. A 42-year-old female with abnormal uterine bleeding. 2. BMI of 55. POSTOPERATIVE DIAGNOSES: 1. A 42-year-old female with abnormal uterine bleeding. 2. BMI of 55. PROCEDURE: D and C with hysteroscopic resection of endometrial polyp. SURGEON: Sasha Deshpande DO. ANESTHESIA: General endotracheal. ESTIMATED BLOOD LOSS: Minimal. URINE OUTPUT: 100 mL clear urine drained at the start of the procedure. FLUIDS: 900 of lactated Ringer solution. FINDINGS: A rather large multicystic appearing endometrial polyp. Grossly normal appearing bilateral tubal ostia and normal appearing endometrial cavity, otherwise normal appearing vaginal mucosa and cervix. SPECIMENS SENT: Endometrial polyp curettings. INDICATIONS FOR PROCEDURE: This 42-year-old female was seen in my office for evaluation of abnormal uterine bleeding. She had undergone a massive amount of bleeding a month prior and had not had any bleeding since and then an endometrial ultrasound did reveal thickening of the endometrium, which, given her BMI of 55, was concerning for endometrial carcinoma. I discussed with the patient endometrial sampling, which we attempted to perform the office and were unable to do so; therefore we proceeded with this under general anesthesia. Risks of the procedure were discussed with the patient in a preoperative consultation and after all her questions were answered, consent was obtained and the patient was taken to the operating room. OPERATIVE REPORT IN DETAIL: Once in the operating room, general anesthesia was found to be adequate, she was placed in a dorsal lithotomy position and prepped in normal sterile fashion. Straight catheterization was performed to empty the bladder. A timeout was performed. I then placed a weighted speculum into the patient's vagina and the right angle retractor was used to visualize the cervix. It was grasped at the 12 o'clock position using a single tooth tenaculum. I then gently sounded the uterine cavity and depth was found to be 8 cm. I then gently dilated the cervix using Scanlon dilators to maximum dilatation of approximately 5 mm at which point I was able to introduce a hysteroscope 5 mm into the endometrial cavity. I used normal saline as my visual medium and the true clear fluid management system was used to manage my fluid in the endometrial cavity and maintained my pressures. Once I was able to visualize endometrium, there was a very obvious posterior wall polyp in the endometrial cavity. Bilateral tubal ostia were inspected and appeared to be normal. There were no other structural or anatomical defects noted of the endometrial cavity and the lining of the remainder of the cavity appears to be normal and uniform. I then using an endometrial resectoscope was unable to resect the polyp through direct guidance of the hysteroscope. Once this was done, there was no active bleeding noted from any of my dissection planes nor the uterine wall under pressure of the hysteroscopy. The remainder of the cavity appears normal and I documented this with photodocumentation. I then removed all the instruments from the patient's vagina. The patient tolerated the procedure well and was sent to the recovery area in stable condition. Lap and sponge counts were correct at the end of the procedure. Instrument counts were correct as well. Job ID: [id number] DocumentID: [id number] Dictated Date: 03/18/2018 10:00:20 Tourist Cabin Keeper Date: 03/18/2018 14:43:24 Dictated By: SASHA DESHPANDE DO
== END 2018-03-18 09:55 | disposition home or self-care (01) ==
LOC: SDC 05:58
PROVIDERS: ATTEND Obstetrics & Gynecology
DX: N93.9 Abnormal uterine and vaginal bleeding, unspecified (principal); N84.0 Polyp of corpus uteri; I10 Essential (primary) hypertension; E66.01 Morbid (severe) obesity due to excess calories; Z68.43 Body mass index [BMI] 50.0-59.9, adult; Z79.899 Other long term (current) drug therapy
CPT/HCPCS: 36415; 84703; 85025; 86850; 86900; 86901; 87081; 88305

== ENCOUNTER → 2019-05-23 | Outpatient (CLI) | payer BC ==
[~2019-05-23] MED LIST changes: -METO-370 PO; +METO50TA7 PO; -NORG1TAB7 PO; +NORG1TAB87 PO
--- NOTE | 2019-05-23 10:41 | Diagnostic Imaging Report ---
INDICATION: Screening. TECHNIQUE: The current study was also evaluated with a Computer Aided Detection (CAD) system. 3D Tomographic imaging was also performed. COMPARISON: 02/28/2015 and 01/30/2014. FINDINGS: There are scattered fibroglandular densities bilaterally. There are a few benign type calcifications. There is no dominant mass, spiculated lesion, or suspicious calcification identified. The skin, nipples, and axillae are unremarkable. IMPRESSION: Benign findings. ACR BI-RADS Category 2: Benign findings. Result letter will be mailed to the patient. Note: At least 10% of breast cancer is not imaged by mammography. Dictated by: Dictated on workstation # [id number]
--- NOTE | 2019-05-23 11:05 | Diagnostic Imaging Report ---
PROCEDURE: US Non-ob pelvis comp/trans. TECHNIQUE: Multiple realtime grayscale images were obtained of the pelvis in various projections endovaginally. Transabdominal imaging was also performed. INDICATION: Abnormal uterine bleeding. FINDINGS: Uterus is retroverted measuring 8.8 x 4.1 cm. The fundal endometrium and fundus are not well-visualized due to patient's discomfort. There is echogenic area seen in the upper uterus measuring 0.4 x 0.3 cm. This likely is related to previous either suture or scar. There is a 6 mm nabothian cyst. Neither ovary was visualized. There are no adnexal masses. There is trace free pelvic fluid. IMPRESSION: Technically limited exam due to patient's discomfort. Endometrium is largely obscured. There is an echogenic area near the upper endometrium and/or myometrium which is nonspecific however likely related to previous . Recommend clinical correlation if warranted. Follow up with MRI to better evaluate endometrium. Nonvisualization of either ovary. Dictated by: Dictated on workstation # [id number]
== END ==
LOC: RAD 09:12
PROVIDERS: ATTEND Obstetrics & Gynecology
DX: Z12.31 Encounter for screening mammogram for malignant neoplasm of breast (principal); N93.8 Other specified abnormal uterine and vaginal bleeding
CPT/HCPCS: 76830; 76856; 77067

== ENCOUNTER → 2022-09-02 | Outpatient (CLI) | payer BC ==
--- NOTE | 2022-09-02 14:00 | Diagnostic Imaging Report ---
PROCEDURE: Pelvic comp/transvaginal sonogram. TECHNIQUE: Complete transabdominal and transvaginal pelvic ultrasound was performed. In addition, limited pelvic Doppler was performed. INDICATION: Abnormal uterine bleeding. FINDINGS: Uterus is retroverted measuring 9.4 x 4.7 x 5.3 cm. Endometrium is 6 mm in thickness. No definite myometrial mass is identified. The ovaries cannot be visualized. However, there is a hypoechoic mass in the right adnexa with echogenic shadowing structure measuring 9.4 x 9.7 x 11.2 cm. No definite internal vascularity is seen. This mass is only seen on the transabdominal images. Overall quality of study is somewhat limited due to patient body habitus and overlying bowel loops. There are cervical nabothian cysts present. IMPRESSION: There is a large partially calcified mass in the right adnexa. CT would be recommended for further evaluation. Dictated by: Dictated on workstation # [id number]
== END ==
LOC: RAD 12:21
PROVIDERS: ATTEND Obstetrics & Gynecology
DX: N83.8 Other noninflammatory disorders of ovary, fallopian tube and broad ligament (principal)
CPT/HCPCS: 76830; 76856

== ENCOUNTER → 2022-09-09 | Outpatient (CLI) | payer BC ==
--- NOTE | 2022-09-09 09:37 | Diagnostic Imaging Report ---
CLINICAL INDICATION: Patient with lower pelvic mass or lump. Follow-up from ultrasound on 09/02/2022. EXAM: Axial CT scan abdomen and pelvis performed without IV contrast. Sagittal and coronal reformatted images are created. Auto Exposure Controls were utilized during the CT exam to meet ALARA standards for radiation dose reduction. COMPARISON: Ultrasound of the pelvis dated 09/02/2022. FINDINGS: Visualized lung bases are clear. There is lower lumbar spine facet arthropathy. There are degenerative spurs involving the visualized lower thoracic spine and lumbar spine. Gallbladder surgically absent. The liver, spleen, pancreas, and adrenal glands are unremarkable. Both kidneys are unremarkable with no hydronephrosis, stone, or mass. There is no intestinal obstruction. There are a few diverticula involving the sigmoid colon and descending colon with no CT evidence of diverticulitis. The appendix is unremarkable. There is no intra-abdominal free air or free fluid. There is no lymphadenopathy. There is a predominantly fat-containing mass with the central soft tissue nodule located in the right upper pelvis/adnexal region. This mass measures 7.9 cm x 10.8 cm x 8.9 cm (AP x Trans x CC). There is a soft tissue nodular area eccentrically within the posterior inferior aspect of this fat-containing mass which demonstrates focal areas of calcification within it. This nodular area measures 2.0 cm x 2.4 cm x 2.3 cm (AP x Trans x CC). This mass is contained with no adjacent fat stranding or fluid. There is a small fat-containing umbilical hernia. IMPRESSION: 1.: There is a 10.8 cm in greatest dimension predominantly fat-containing heterogeneous mass with eccentric soft tissue nodule, located in the right adnexal region. This mass is contained with no adjacent fat stranding. Given the complexity and size, teratoma is considered. Dermoid is suspected to be less likely. Gynecological consultation is suggested for evaluation. 2: The remainder of this CT exam shows no acute process. There is no lymphadenopathy. 3: There is diverticulosis with no CT evidence of diverticulitis. Dictated by: Dictated on workstation # [id number]
== END ==
LOC: RAD 08:31
PROVIDERS: ATTEND Obstetrics & Gynecology
DX: K57.90 Diverticulosis of intestine, part unspecified, without perforation or abscess without bleeding (principal); R19.00 Intra-abdominal and pelvic swelling, mass and lump, unspecified site
CPT/HCPCS: 74176

== ENCOUNTER 2022-11-25 05:28 | Outpatient (CLI) | payer BC ==
[~2022-11-25] VITALS: Ht 154.9 cm; Wt 121.4 kg
[2022-11-25] MEDS ORDERED: METO-333 PO (12:25)
[2022-11-25] MEDS ORDERED: HYDR12.56 PO (12:25)
== END 2022-11-25 12:28 | disposition home or self-care (01) ==
LOC: PREOP 05:28
PROVIDERS: ATTEND Obstetrics & Gynecology
DX: Z01.818 Encounter for other preprocedural examination (principal)

== ENCOUNTER 2022-12-02 05:48 | Day surgery (SDC) | payer BC ==
[~2022-12-02] VITALS: Ht 154.9 cm; Wt 121.4 kg
[2022-12-02] VITALS (10 sets, daily range): BP systolic 103–158; BP diastolic 58–90
[~2022-12-02 05:48] MED LIST changes: +HYDR12.56 PO; +METO-333 PO
[2022-12-02] MEDS: LACTATED RINGERS 1,000 ML 1,000 ML IV PRN ×3 (06:34→09:52)
[2022-12-02] MEDS ORDERED: BUPIVACAINE 0.25% 30 ML VIAL ONE (06:35)
[2022-12-02 06:41] LABS: BASOPHILS # (AUTO) 0.1 10^3/uL (0.0-0.1); BASOPHILS % (AUTO) 1 % (0-10); EOSINOPHILS # (AUTO) 0.3 10^3/uL (0.0-0.3); EOSINOPHILS % (AUTO) 3 % (0-10); HEMATOCRIT 48 % (35-52); LYMPHOCYTES # (AUTO) 2.1 10^3/uL (1.0-4.0); LYMPHOCYTES % (AUTO) 23 % (12-44); MEAN CORPUSCULAR HEMOGLOBIN 30 pg (25-34); MEAN CORPUSCULAR HGB CONC 34 g/dL (32-36); MEAN CORPUSCULAR VOLUME 91 fL (80-99); MEAN PLATELET VOLUME 10.7 fL (9.0-12.2); MONOCYTES # (AUTO) 0.7 10^3/uL (0.0-1.0); MONOCYTES % (AUTO) 8 % (0-12); NEUTROPHILS # (AUTO) 5.9 10^3/uL (1.8-7.8); NEUTROPHILS % (AUTO) 65 % (42-75); PLATELET COUNT 209 10^3/uL (130-400); WHITE BLOOD COUNT 9.1 10^3/uL (4.3-11.0)
[2022-12-02] MEDS ORDERED: metroNIDAZOLE 500MG/100ML IVPB 100 ML IV ONE (06:45)
[2022-12-02] MEDS ORDERED: ceFAZolin INJECTION 2,000 MG in NS (IVPB) 50 ML 50 ML IV ONE (06:45)
[2022-12-02] MEDS ORDERED: LIDOCAINE PF 2% 5 ML VIAL ONE (06:56)
[2022-12-02] MEDS ORDERED: ONDANSETRON INJECTION 4 MG/2 ML (SDV) ONE (06:56)
[2022-12-02] MEDS ORDERED: KETOROLAC INJ 30 MG/ML VIAL ONE (06:56)
[2022-12-02] MEDS ORDERED: dexAMETHasone INJ 10 MG/ML 1 ML VIAL ONE (06:56)
[2022-12-02] MEDS ORDERED: MIDAZOLAM INJ 2 MG/2 ML VIAL ONE (06:56)
[2022-12-02] MEDS ORDERED: fentaNYL INJECTION 100 MCG/2 ML VIAL ONE (06:56)
[2022-12-02] MEDS ORDERED: ROCURONIUM 50 MG/5 ML VIAL IV ONE (06:56)
[2022-12-02] MEDS ORDERED: proPOfol INJECTION 200 MG/20 ML VIAL IV ONE (06:56)
[2022-12-02] MEDS ORDERED: BUPIVACAINE 0.25% 30 ML VIAL INJ ONE (07:04)
[2022-12-02] MEDS ORDERED: IBUPROFEN 600 MG TABLET PO PRN (07:15)
[2022-12-02] MEDS ORDERED: KETOROLAC INJ 30 MG/ML VIAL IVP PRN (07:15)
[2022-12-02] MEDS ORDERED: ONDANSETRON INJECTION 4 MG/2 ML (SDV) IV PRN (07:15)
[2022-12-02] MEDS ORDERED: BENZOCAINE LOZENGES 1 EACH MM PRN (07:15)
[2022-12-02] MEDS ORDERED: LACTATED RINGERS 1,000 ML 1,000 ML IV SCH (07:15)
[2022-12-02] MEDS ORDERED: SIMETHICONE 80 MG CHEWABLE TABLET PO PRN (07:15)
[2022-12-02] MEDS ORDERED: DOCUSATE SODIUM 100 MG CAPSULE PO PRN (07:15)
[2022-12-02] MEDS ORDERED: ZOLPIDEM 5 MG (AMBIEN) TAB PO PRN (07:15)
[2022-12-02] MEDS ORDERED: ANTACID SUSPENSION 30 ML UDC PO PRN (07:15)
[2022-12-02] MEDS ORDERED: HYDROcodone/ACETAMINOPHEN 5 MG/325 MG TABLET PO PRN (07:15)
--- NOTE | 2022-12-02 07:19 | Progress Note-Pre Operative ---
Pre-Operative Progress Note Date of Available H&P: Dec 02, 2022 Date H&P Reviewed: Dec 02, 2022 Time H&P Reviewed: 07:15 History & Physical: H&P Reviewed, Patient Examed, No changes noted Pre-Operative Diagnosis: Pelvic mass, pelvic pain, Menorrhagia SASHA DESHPANDE DO Dec 02, 2022 07:18
--- NOTE | 2022-12-02 07:22 | Discharge Inst-Women's Service ---
Discharge Inst-Women's Serv Depart Medication/Instructions New, Converted or Re-Newed RX: Transmitted to Pharmacy Problems Reviewed?: Yes Consults/Follow Up Additional Follow Up: Yes Orders/Referrals Dr. Matias in 7-10 days and in 8 weeks Activity Activity: Activity as Tolerated Driving Instructions: No Driving for 1 Week NO SMOKING: NO SMOKING Nothing Inside Vagina: No Douching, No [place], No Tampons Diet Discharge Diet: No Restrictions Symptoms to Report to : Bleeding Excessive, Pain Increased, Fever Over 101 Degrees F, Vaginal Bleeding Increase, Questions/Concerns For Any Problems or Questions: Contact Your Physician Skin/Wound Care Infection Signs and Symptoms: Increased Redness, Foul Odor of Wound, Increased Drainage, Skin Itchy or Has a Rash, Increased Swelling, Temperature Above 101 F Operative Area Clean and Dry: Keep Incision Clean/Dry Stitches/[place]/Dermabond: Dermabond, Care of Stitches Bathing Instructions: SASHA Gomez DO Dec 02, 2022 07:22
[2022-12-02] MEDS ORDERED: IBUP-844 PO (07:24)
[2022-12-02] MEDS ORDERED: SIME80TA16 PO (07:24)
[2022-12-02] MEDS ORDERED: ACHD5005 PO (07:24)
[2022-12-02] MEDS ORDERED: DOCU100C37 PO (07:24)
[2022-12-02] MEDS ORDERED: HYDROmorphone INJECTION 2 MG/ML VIAL ONE (09:35)
[2022-12-02] MEDS ORDERED: GLYCOPYRROLATE INJ 0.2 MG/ML 2 ML VIAL ONE (10:38)
[2022-12-02] MEDS ORDERED: NEOSTIGMINE 1 MG/1ML 10 ML VIAL ONE (10:38)
[2022-12-02] MEDS ORDERED: SEVOFLURANE (ULTANE) 15 ML INHAL SOLN ONE (10:45)
[2022-12-02] MEDS ORDERED: morphine INJ 10 MG/ML 1ML (SYR OR VIAL) IVP ONE (11:15)
[2022-12-02] MEDS ORDERED: ONDANSETRON INJECTION 4 MG/2 ML (SDV) IVP PRN (11:15)
[2022-12-02] MEDS ORDERED: MEPERIDINE INJ 50 MG/ML VIAL IVP ONE (11:15)
--- NOTE | 2022-12-02 19:36 | OPERATIVE REPORT ---
DATE OF SERVICE: 12/02/2022 SURGEON: Xander Matias DO TIP SCOURER: Winter Fernandez DNP who was necessary for manipulation and retraction throughout the procedure PREOPERATIVE DIAGNOSIS: A 46-year-old female with large pelvic mass, suspicious for dermoid tumor. POSTOPERATIVE DIAGNOSES: 1. A 46-year-old female with large pelvic mass, suspicious for dermoid tumor. ANESTHESIA: General endotrachial EBL: 200 mL FLUID: 220 ml LR URINE: 150 clear at the end of the procedure FINDINGS: 1. Extensive bleeding of the ovary to the omentum, anterior abdominal wall as well as dense bleeding of the uterus to the vesicouterine hematoperitoneum. SPECIMEN SENT: Uterus, bilateral fallopian tubes, and ovaries. INDICATIONS FOR PROCEDURE: This 38-year-old female is a patient who had sought care in my office for findings of a large pelvic abdominal mass. Evaluation and workup did not reveal any concerns for potential malignancy other than the size of this mass, which was suspicious for a benign dermoid tumor. I discussed with the patient removal of the uterus at the time of doing this, also lowering her risk for endometrial cancer due to her size and BMI. She was agreeable and willing to proceed with this despite the risk. The risks of procedure were discussed with the patient in detail including risk of bleeding, infection, damage to surrounding structures including but not limited to bowel, bladder, ureter, kidneys, possible need for reoperation, postoperative complications that may occur, recovery timeframe, risk from anesthesia and even . After everything was discussed with the patient in detail, a consent was obtained, the patient was taken to the operating room. OPERATIVE REPORT IN DETAIL: Once in the operating room, general anesthesia was administered. She was placed in dorsal lithotomy position, prepped and draped in normal sterile fashion. A timeout was performed. A Mcclellan catheter was placed using sterile technique. A weighted speculum inserted to the patient's vagina, which allowed me to visualize the cervix, which was grasped at 12 o'clock position using a long single tooth tenaculum. I then placed an 0 Vicryl suture to the anterior lip of the cervix and used the suture as my retraction point. I then selected #8 AMANDA uterine manipulator tip and a 4 cm colpotomy ring. The manipulator tip was advanced into the uterus where the balloon was deployed and the colpotomy ring placed around the vaginal fornix, which allowed the AMANDA to secured to the uterus and cervix. I then performed a change of gloves. I turned my attention to the abdomen where subcostally at the midclavicular line on the left side, I introduced the Veress needle through the skin. Intraperitoneal placement was confirmed using saline drop test. An opening pressure of 7 mmHg was noted. I proceeded with CO2 insufflation to max pressure of 15 mmHg. At which point, I made an 8-mm supraumbilical trocar incision with a knife and directed a blunt 8-mm da Zahra laparoscope through the incision until intraperitoneal placement was confirmed using da Zahra laparoscope. There was no evidence of damage from entry site. A brief scan of the upper abdominal anatomy appears to be grossly normal. There were dense bleeding just caudad to my entry point into the peritoneum. I placed a right and left sided trocar under direct visualization of laparoscope. These were both 8 mm trocars approximately 8-10 cm lateral to my supraumbilical trocar. Once both of these were in place, I began by taking down the adhesions using LigaSure device laparoscopically to allow and free up, so that I can visualize the pelvic anatomy. Once this was done, I bring in the da Zahra robot and docked in appropriate fashion, placing the SynchroSeal device in the left hand and monopolar rosalinda in the right hand. I continued with taking down the adhesions. There were filmy adhesions all down the right side of the pelvis, adhesed to the ovary, the ovary had to be freed up from these adhesions, which took nearly 45 minutes and then there were more adhesions of the anterior abdominal wall to the omentum that had to be carefully taken down as they do come very close to the bowel. These were taken down with care and I tried my best not to use any energy to take these down to avoid bowel damage. Most of this was done with sharp dissection. When bleeding was encountered, it was cauterized with monopolar cautery. This took nearly an hour and a half to proceed with, after which all of these adhesions were taken down, I am able to start at the uteroovarian ligament with the ovary and sealed and transected using SynchroSeal device. I then took this around the mesovarium to the infundibulopelvic ligament of the right sided ovary, which is enlarged, approximately 8-10 cm in diameter. Once the IP is sealed and transected using a SynchroSeal device, I then took my attention to the left ovary, which it is not enlarged. I started at the infundibulopelvic ligament, sealed and transected using a SynchroSeal device. I then grasped the round ligament, which I sealed and transected using LigaSure device. This allowed me to grasp the entire broad ligament, which I sealed and transected using SynchroSeal device down to the level of the lower uterine segment, at which point I the anterior and posterior leaflets of the broad ligament. Anterior leaflet was taken around the anterior vaginal fornix. The posterior leaf was taken around the posterior vaginal fornix. This allows me to skeletonize the uterine vessels laterally, which I sealed and transected using SynchroSeal device. I then created a colpotomy at 12 o'clock position using monopolar rosalinda and took this circumferentially around the vaginal fornix, amputating the cervix away from the vagina. The entire uterus, left tube and ovary were removed through the vagina at that point. I then elevated the ovary into the pelvis by grasping it by the pedicle and have my horticultural nursery assistant introduce a 15-cm laparoscopic bag into the pelvis where it was opened and the ovary was placed within the bag and once it is secured up against the vagina, I am able to open the bag through the vagina and open up the ovary, allowing it to drain into the bag and outside of the patient, which allows me to remove it through the vagina at that point, decompressing the ovary. I then closed the vaginal cuff using 2-0 V-Loc in a running fashion, after which there was no active bleeding noted from any of my dissection planes. I copiously irrigated the pelvis using normal saline. Once again, there was no active bleeding noted from any of my dissection planes. Due to the proximity of the adhesions to the bowel, I do have Dr. Gooden, general surgeon, to come and evaluate. There was one area on the epiploica of the descending sigmoid colon that appeared abrasion and I, at his recommendation, placed a 3-0 Vicryl suture in a [id number] fashion, reapproximating that area. Otherwise, the bowel looked undamaged in the process of doing this. I then undocked the da Zahra robot and proceeded with the remainder of the case, copiously irrigated the pelvis using normal saline. Once again, there was no active bleeding noted from any of my dissection planes. I placed Surgiflo hemostatic agent over all my planes of dissection. I had the patient was taken out of steep Trendelenburg, where I removed the lateral trocars under direct visualization of laparoscope. The infraumbilical trocar was left in place to release the remainder of insufflation and introduce 10 mL of 0.25% Marcaine in the peritoneal cavity for postoperative pain management. I then removed this trocar as well. The skin was reapproximated using 4-0 Monocryl and interrupted subcuticular stitches. Dermabond was applied to the incision and Band-Aids were placed over the incisions as well. Mcclellan catheter was left in place. The patient tolerated the procedure well and was taken to recovery in stable condition. Lap and sponge counts were correct at the end of the procedure. Instrument counts were correct as well. Job ID: [id number] DocumentID: [id number] Dictated Date: 12/02/2022 11:48:00 Impregnator Operator Date: 12/02/2022 19:34:00 Dictated By: DO EMMA CASTELAN
--- NOTE | 2022-12-03 12:43 | Anesthesia-General Post-Op ---
General Patient Condition Mental Status/LOC: Same as Preop Cardiovascular: Satisfactory Nausea/Vomiting: Absent Respiratory: Satisfactory Pain: Controlled Complications: Absent Post Op Complications Complications None Follow Up Care/Instructions Patient Instructions None needed. Anesthesia/Patient Condition Patient Condition Patient is doing well, no complaints, stable vital signs, no apparent adverse anesthesia problems. No complications reported per nursing. BILL VAZQUEZ CRNA Dec 03, 2022 12:43
--- NOTE | 2022-12-04 18:40 | CONSULTATION REPORT ---
DATE OF SERVICE: 12/02/2022 Intraoperative consult requested by Dr. Xander Matias. The patient is a 46-year-old female with a large pelvic mass that was suspicious for a dermoid tumor. He had done his dissection of the pelvis, removing a pelvic mass, which had multiple adhesions to it. He had bleeding controlled. There is one area that he be taken down from adhesions that was near the bowel at the sigmoid colon. There does not have any gross contamination of the area. There were an epiploica that had a tear through it, but does not have any appearance of bowel injury. I recommended to him placing 3-0 Vicryl suture in a [id number] fashion to reapproximate this area, which he did robotically noting no other pathology visualized from my inspection. I recommend continuation of his surgery. At this time, I extended as well. Job ID: [id number] DocumentID: [id number] Dictated Date: 12/04/2022 11:48:54 Clinical Operations Consultant Date: 12/04/2022 18:38:00 Dictated By: KIRSTEN JIANG DO
== END 2022-12-02 18:20 | disposition home or self-care (01) ==
LOC: SDC 05:48 → WS 11:50 → SDC 18:20
PROVIDERS: ATTEND Obstetrics & Gynecology
DX: D27.0 Benign neoplasm of right ovary (principal); N94.89 Other specified conditions associated with female genital organs and menstrual cycle; N83.8 Other noninflammatory disorders of ovary, fallopian tube and broad ligament; N73.6 Female pelvic peritoneal adhesions (postinfective); N92.0 Excessive and frequent menstruation with regular cycle; E66.01 Morbid (severe) obesity due to excess calories; Z68.43 Body mass index [BMI] 50.0-59.9, adult; Z78.9 Other specified health status
CPT/HCPCS: 36415; 84703; 85025; 86850; 86900; 86901; 87081

== ENCOUNTER 2022-12-19 18:01 | Emergency (ER) | payer BC ==
[~2022-12-19 18:01] MED LIST changes: +ACHD5005 PO; +DOCU100C37 PO; +IBUP-844 PO; +SIME80TA16 PO
--- NOTE | 2022-12-19 18:44 | ED GU-Female ---
General Chief Complaint: Post OP Complications/Pain Stated Complaint: DISCHARGE, BLEEDING, ABD PRESSURE Nursing Triage Note: PT AMB TO RM 10 PT STATES HAS SOME VAGINAL BLEEDING TODAY AND PRESSURE SINCE YESTERDAY RATES DISCOMFORT OF 8/10. PT STATES HAS ALSO BEEN EXTREMELY TIRED TODAY. PT HAD VAGINAL HYST ON 12/02/22 Source: patient Exam Limitations: no limitations History of Present Illness Date Seen by Provider: Dec 19, 2022 Time Seen by Provider: 18:08 Initial Comments 46-year-old female presents to the ER for postop complaint. She states that 2 and half weeks ago she had a total hysterectomy completed by Dr. Matias, CORRECTIONAL MANAGER. She states that yesterday she started having pressure in her groin area, today within the last couple of hours she started having bleeding and clear discharge. She states its been a small amount, not enough to fill a pad. She denies concerns for STDs. States that she has not had intercourse since before the surgery. Denies fevers, dysuria. Allergies and Home Medications Allergies Coded Allergies: No Known Allergies (Verified Allergy, Unknown, 07/27/05) Patient Home Medication List Home Medication List Reviewed: Yes Cholecalciferol (Vitamin D3) (Vitamin D) 1,000 Unit Capsule, 1,000 UNIT PO DAILY, (Reported) Entered as Reported by: ERNESTO PARMAR on 03/15/18 1010 Docusate Sodium (Docusate Sodium) 100 Mg Capsule, 100 MG PO BID PRN for CONSTIPATION-1ST LINE Prescribed by: SASHA MATIAS on 12/02/22 0724 Hydrochlorothiazide (Hydrochlorothiazide) 12.5 Mg Tablet, 12.5 MG PO DAILY, (Reported) Entered as Reported by: Stacey Baez on 11/25/22 1225 Hydrocodone/Acetaminophen (Hydrocodone-Acetamin 5-325 mg) 5 Mg-325 Mg Tablet, 1- 2 EA PO Q6HR PRN for PAIN-MODERATE (5-7) Prescribed by: SASHA MATIAS on 12/02/22 0724 Ibuprofen (Ibu) 600 Mg Tablet, 600 MG PO Q6HR PRN for PAIN-MILD (1-4) Prescribed by: SASHA MATIAS on 12/02/22 0724 Metoprolol Tartrate (Metoprolol Tartrate) 25 Mg Tablet, 25 MG PO BID, (Reported) Entered as Reported by: Stacey Baez on 11/25/22 1225 Metronidazole (Metronidazole) 500 Mg Tablet, 500 MG PO BID Prescribed by: Joana Lake on 12/19/222013 Nitrofurantoin Macrocrystal (Nitrofurantoin) 100 Mg Capsule, 100 MG PO BID Prescribed by: Joana Lake on 12/19/222013 Simethicone (Simethicone) 80 Mg Tab.chew, 40 MG PO TID PRN for INDIGESTION 2ND LINE Prescribed by: SASHA MATIAS on 12/02/22 0724 Review of Systems Review of Systems Constitutional: see HPI Past Hmhbisp-Xjausb-Nbnyxv Hx Patient Social History Tobacco Use?: No Substance use?: No Alcohol Use?: No Pt feels they are or have been: No Immunizations Up To Date Tetanus Booster (TDap): Less than 5yrs First/Initial COVID19 Vaccinat: 05/18/20 Second COVID19 Vaccination Joseph: 06/15/20 Third COVID19 Vaccination Date: 02/15/21 Seasonal Allergies Seasonal Allergies: No Past Medical History Surgery/Hospitalization HX: HYST, , GB, CARPAL TUNNEL BILAT, HTN, VIT D Surgeries: Yes (CS X2, BILAT CTR, CYST REMOVED FROM RT BREAST) Adenoidectomy, Breast, Section, Gallbladder, Tonsillectomy Respiratory: Yes (COVID) Currently Using CPAP: No Currently Using BIPAP: No Cardiac: Yes Hypertension Neurological: Yes Headaches /Migraines Reproductive Disorders: Yes (AUM) Female Reproductive Disorders: Menstrual Problems Sexually Transmitted Disease: No HIV/AIDS: No Genitourinary: No Gastrointestinal: No Gall Bladder Disease Musculoskeletal: No Endocrine: No HEENT: Yes (WEARS GLASSES) Loss of Vision: Denies Hearing Impairment: Denies Cancer: No Psychosocial: No Integumentary: No Blood Disorders: No Adverse Reaction/Blood Tranf: No (HAS HAD BLOOD WITH NO REACTION) Physical Exam Vital Signs Vital Signs - First Documented 12/19/22 18:10 Temp 36.9 Pulse 83 Resp 16 B/P (MAP) 131/55 (80) Pulse Ox 98 Capillary Refill : Less Than 3 Seconds Height, Weight, BMI Height: 5'1.00" Weight: 300lbs. 0.0oz. 136.755965te; BMI Method: General Appearance: WD/WN, no apparent distress Neck: supple, normal inspection Cardiovascular: regular rate, rhythm Respiratory: lungs clear, normal breath sounds, no respiratory distress, no accessory muscle use Pelvic: normal external exam, normal adnexa, discharge; No vaginal bleeding Extremities: normal range of motion, normal inspection Neurologic/Psychiatric: alert, normal mood/affect Skin: normal color, warm/dry Progress/Results/Core Measures Suspected Sepsis SIRS Temperature: Pulse: 83 Respiratory Rate: 16 Laboratory Tests 12/19/22 18:44: White Blood Count 9.5 Blood Pressure 131 /55 Mean: 80 Laboratory Tests 12/19/22 18:44: Platelet Count 283 Results/Orders Lab Results Laboratory Tests Test 12/19/22 18:26 12/19/22 18:44 12/19/22 18:54 Range/Units Urine Color YELLOW Urine Clarity CLEAR Urine pH 6.0 5-9 Urine Specific [place] 1.025 H 1.016-1.022 Urine Protein 1+ H NEGATIVE Urine Glucose (UA) NEGATIVE NEGATIVE Urine Ketones NEGATIVE NEGATIVE Urine Nitrite NEGATIVE NEGATIVE Urine Bilirubin NEGATIVE NEGATIVE Urine Urobilinogen 1.0 < = 1.0 MG/DL Urine Leukocyte Esterase TRACE H NEGATIVE Urine RBC (Auto) 3+ H NEGATIVE Urine RBC 5-10 H /HPF Urine WBC 10-25 H /HPF Urine Squamous Epithelial Cells 10-25 H /HPF Urine Crystals PRESENT H /LPF Urine Amorphous Sediment RARE WIN URATES H /LPF Urine Bacteria FEW H /HPF Urine Casts NONE /LPF Urine Mucus NEGATIVE /LPF Urine Culture Indicated YES White Blood Count 9.5 4.3-11.0 10^3/uL Red Blood Count 4.85 3.80-5.11 10^6/uL Hemoglobin 14.5 11.5-16.0 g/dL Hematocrit 44 35-52 % Mean Corpuscular Volume 90 80-99 fL Mean Corpuscular Hemoglobin 30 25-34 pg Mean Corpuscular Hemoglobin Concent 33 32-36 g/dL Red Cell Distribution Width 12.1 10.0-14.5 % Platelet Count 283 130-400 10^3/uL Mean Platelet Volume 10.0 9.0-12.2 fL Immature Granulocyte % (Auto) 1 % Neutrophils (%) (Auto) 53 42-75 % Lymphocytes (%) (Auto) 31 12-44 % Monocytes (%) (Auto) 7 0-12 % Eosinophils (%) (Auto) 8 0-10 % Basophils (%) (Auto) 1 0-10 % Neutrophils # (Auto) 5.1 1.8-7.8 10^3/uL Lymphocytes # (Auto) 2.9 1.0-4.0 10^3/uL Monocytes # (Auto) 0.6 0.0-1.0 10^3/uL Eosinophils # (Auto) 0.7 H 0.0-0.3 10^3/uL Basophils # (Auto) 0.1 0.0-0.1 10^3/uL Immature Granulocyte # (Auto) 0.1 0.0-0.1 10^3/uL My Orders Orders - JOANA NEWBERRY APRN Ua Culture If Indicated (12/19/22 18:08) Cbc With Automated Diff (12/19/22 18:28) Wet Prep (12/19/22 18:57) Neisseria Gonorrhea Swab (12/19/22 18:57) Chlamydia Trachomatis Swab (12/19/22 18:57) Urine Culture (12/19/22 18:26) Nitrofurantoin Monohydrate Cap (Nitrofur (12/19/22 19:30) Metronidazole Tablet (Metronidazole Tabl (12/19/22 20:15) Medications Given in ED Current Medications Medications Dose Ordered Sig/Duy Route Start Time Stop Time Status Last Admin Dose Admin Metronidazole 500 mg ONCE ONCE PO 12/19/22 20:15 12/19/22 20:16 DC 12/19/22 20:22 500 MG Nitrofurantoin Macrocrystals 100 mg ONCE ONCE PO 12/19/22 19:30 12/19/22 19:31 DC 12/19/22 19:47 100 MG Vital Signs/I&O 12/19/22 12/19/22 18:10 20:23 Temp 36.9 Pulse 83 Resp 16 B/P (MAP) 131/55 (80) 130/84 Pulse Ox 98 Capillary Refill : Less Than 3 Seconds Blood Pressure Mean: 80 Progress Note : Progress Note Patient seen and evaluated, resting comfortably in bed, no acute distress. Urinalysis ordered. I called and spoke with Dr. Martin, CORRECTIONAL MANAGER. She recommends a gentle pelvic exam to assess the bleeding. She also recommends a CBC. This has been ordered. 1856 pelvic exam completed. No vaginal bleeding noted. Swab sent for wet prep, gonorrhea, and chlamydia. 1929 Dr. Martin, CORRECTIONAL MANAGER, here to see patient. Second pelvic exam completed by Dr. Martin, no vaginal bleeding noted. She states that stitches feel to be intact. Labs reviewed. CBC grossly normal. Urinalysis shows trace leukocytes, 3+ RBCs, 10-25 WBCs, 10-25 squamous epithelial cells, few bacteria. Will treat for urinary tract infection. 2014 wet prep reviewed. Positive for moderate clue cells. Will treat for bacterial vaginosis. Results discussed with patient. Will discharge with pr escription for UTI and bacterial vaginosis. Discharge instructions and return precautions provided. Departure Impression Primary Impression: UTI (urinary tract infection) Additional Impression: Bacterial vaginosis Disposition: HOME, SELF-CARE Condition: Stable Departure-Patient Inst. Decision time for Depature: 20:15 Referrals: LUIS CARLOS MCCARTNEY MD (PCP/Family) Primary Care Physician Patient Instructions: Bacterial Vaginosis ED Add. Discharge Instructions: Complete full course of both antibiotics as prescribed. Follow-up with Dr. Matias. Return for any new, concerning, or worsening symptoms. Scripts Metronidazole (Metronidazole) 500 Mg Tablet 500 MG PO BID for 7 Days, #13 TAB 0 Refills Prov: JOANA NEWBERRY APRN 12/19/22 Nitrofurantoin Macrocrystal (Nitrofurantoin) 100 Mg Capsule 100 MG PO BID for 5 Days, #9 CAP 0 Refills Prov: JOANA NEWBERRY APRN 12/19/22 JOANA NEWBERRY APRN Dec 19, 2022 18:44
[2022-12-19 18:54] LABS: BASOPHILS # (AUTO) 0.1 10^3/uL (0.0-0.1); BASOPHILS % (AUTO) 1 % (0-10); EOSINOPHILS # (AUTO) 0.7 10^3/uL (0.0-0.3); EOSINOPHILS % (AUTO) 8 % (0-10); HEMATOCRIT 44 % (35-52); HEMOGLOBIN 14.5 g/dL (11.5-16.0); LYMPHOCYTES # (AUTO) 2.9 10^3/uL (1.0-4.0); LYMPHOCYTES % (AUTO) 31 % (12-44); MEAN CORPUSCULAR HEMOGLOBIN 30 pg (25-34); MEAN CORPUSCULAR HGB CONC 33 g/dL (32-36); MEAN CORPUSCULAR VOLUME 90 fL (80-99); MONOCYTES # (AUTO) 0.6 10^3/uL (0.0-1.0); MONOCYTES % (AUTO) 7 % (0-12); NEUTROPHILS # (AUTO) 5.1 10^3/uL (1.8-7.8); NEUTROPHILS % (AUTO) 53 % (42-75); PLATELET COUNT 283 10^3/uL (130-400); WHITE BLOOD COUNT 9.5 10^3/uL (4.3-11.0)
[2022-12-19 19:00] LABS: BILIRUBIN,URINE NEGATIVE (NEGATIVE); CLARITY,URINE CLEAR; COLOR,URINE YELLOW; GLUCOSE, URINE (UA) NEGATIVE (NEGATIVE); KETONES,URINE NEGATIVE (NEGATIVE); LEUKOCYTE ESTERASE ,URINE TRACE (NEGATIVE); NITRITE,URINE NEGATIVE (NEGATIVE); PROTEIN,URINE 1+ (NEGATIVE)
[2022-12-19 19:01] LABS: AMORPHOUS SEDIMENT,UR RARE AMOR URATES /LPF; BACTERIA,URINE FEW /HPF
[2022-12-19] MEDS ORDERED: NITROFURANTOIN Monohydrate/Macro 100 MG CAPSULE PO ONE (19:30)
[2022-12-19] MEDS ORDERED: METR-145 PO (20:14)
[2022-12-19] MEDS ORDERED: NITR100C PO (20:14)
[2022-12-19] MEDS ORDERED: metroNIDAZOLE 500 MG TABLET PO ONE (20:15)
[2022-12-19 20:23] VITALS: BP 130/84
--- NOTE | 2022-12-19 21:27 | Consultation ---
History of Present Illness History of Present Illness Patient Consulted On(joseph/time) 12/19/22 190 Date Seen by Provider: Dec 19, 2022 Time Seen by Provider: 19:00 Reason for Visit: Vaginal bleeding History of Present Illness 46 year old s/p davinci assisted robotic hysterectomy on 12/02, presents with a 2 day history of pelvic pressure. She says that the pressure began after she went shopping at [employer] yesterday. Today, she noted bright red spotting and clear discharge. She did not have to wear a pad. Denies heavy lifting/intercourse. Denies fever/chills/problems with bowel or bladder. She did have one episode of incontinence yesterday. Has not noted any blood in her urine or dysuria Allergies and Home Medications Allergies Coded Allergies: No Known Allergies (Verified Allergy, Unknown, 07/27/05) Patient Home Medication List Home Medication List Reviewed: Yes Cholecalciferol (Vitamin D3) (Vitamin D) 1,000 Unit Capsule, 1,000 UNIT PO DAILY, (Reported) Entered as Reported by: ERNESTO PARMAR on 03/15/18 1010 Docusate Sodium (Docusate Sodium) 100 Mg Capsule, 100 MG PO BID PRN for CONSTIPATION-1ST LINE Prescribed by: SASHA DESHPANDE on 12/02/22 0724 Hydrochlorothiazide (Hydrochlorothiazide) 12.5 Mg Tablet, 12.5 MG PO DAILY, (Reported) Entered as Reported by: Stacey Baez on 11/25/22 1225 Hydrocodone/Acetaminophen (Hydrocodone-Acetamin 5-325 mg) 5 Mg-325 Mg Tablet, 1- 2 EA PO Q6HR PRN for PAIN-MODERATE (5-7) Prescribed by: SASHA DESHPANDE on 12/02/22 0724 Ibuprofen (Ibu) 600 Mg Tablet, 600 MG PO Q6HR PRN for PAIN-MILD (1-4) Prescribed by: SASHA DESHPANDE on 12/02/22 0724 Metoprolol Tartrate (Metoprolol Tartrate) 25 Mg Tablet, 25 MG PO BID, (Reported) Entered as Reported by: Stacey Baez on 11/25/22 1225 Metronidazole (Metronidazole) 500 Mg Tablet, 500 MG PO BID Prescribed by: Joana Lake on 12/19/222013 Nitrofurantoin Macrocrystal (Nitrofurantoin) 100 Mg Capsule, 100 MG PO BID Prescribed by: Joana Lake on 12/19/222013 Simethicone (Simethicone) 80 Mg Tab.chew, 40 MG PO TID PRN for INDIGESTION 2ND LINE Prescribed by: SASHA DESHPANDE on 12/02/22 0724 Past Pgipzwa-Pmoipv-Nsimbf Hx Patient Social History Tobacco Use?: No Substance use?: No Alcohol Use?: No Pt feels they are or have been: No Immunizations Up To Date Tetanus Booster (TDap): Less than 5yrs First/Initial COVID19 Vaccinat: 05/18/20 Second COVID19 Vaccination Joseph: 06/15/20 Third COVID19 Vaccination Date: 02/15/21 Seasonal Allergies Seasonal Allergies: No Past Medical History Surgery/Hospitalization HX: HYST, , GB, CARPAL TUNNEL BILAT, HTN, VIT D Surgeries: Yes (CS X2, BILAT CTR, CYST REMOVED FROM RT BREAST) Adenoidectomy, Breast, Section, Gallbladder, Tonsillectomy Respiratory: Yes (COVID) Currently Using CPAP: No Currently Using BIPAP: No Cardiac: Yes Hypertension Neurological: Yes Headaches /Migraines Reproductive Disorders: Yes (AUM) Female Reproductive Disorders: Menstrual Problems Sexually Transmitted Disease: No HIV/AIDS: No Genitourinary: No Gastrointestinal: No Gall Bladder Disease Musculoskeletal: No Endocrine: No HEENT: Yes (WEARS GLASSES) Loss of Vision: Denies Hearing Impairment: Denies Cancer: No Psychosocial: No Integumentary: No Blood Disorders: No Adverse Reaction/Blood Tranf: No (HAS HAD BLOOD WITH NO REACTION) Review of Systems-General Constitutional: No chills, No fever Gastrointestinal: No abdominal pain, No constipation, No nausea, No vomiting Genitourinary: discharge; No dysuria, No hematuria; incontinence Physical Exam-General Problems Physical Exam Vital Signs Vital Signs - First Documented 12/19/22 18:10 Temp 36.9 Pulse 83 Resp 16 B/P (MAP) 131/55 (80) Pulse Ox 98 Capillary Refill : Less Than 3 Seconds General Appearance: no apparent distress Respiratory: no respiratory distress Gastrointestinal: non tender, soft Genital/Rectal: normal genital exam (no vaginal discharge or bleeding noted- vaginal cuff palpated and noted to be intact) Assessment/Plan Assessment/Plan Admission Diagnosis/Plan UTI-recommend treatment with macrobid Follow up with billet examiner bleeding precautions given recommend continued pelvic rest/lifting precautions Admission Status: Other (ER visit) Copy Copies To 1: SASHA DESHPANDE SARAH DO Dec 19, 2022 21:26
== END 2022-12-19 20:24 | disposition home or self-care (01) ==
LOC: EDUNIT# 18:01 → ER 18:04
DX: N39.0 Urinary tract infection, site not specified (principal); N76.0 Acute vaginitis; Z86.16 Personal history of COVID-19
CPT/HCPCS: 36415; 81000; 85025; 87088; 87210; 87491; 87591; 99284